=== PATIENT | male | born 1935 | race Caucasian/White ===

== ENCOUNTER → 2017-04-30 | Outpatient (CLI) | payer MEDICARE, BC ==
--- NOTE | 2017-04-30 11:56 | XR ---
EXAMINATION TYPE: XR chest 2V DATE OF EXAM: 04/30/2017 COMPARISON: 03/27/2016 TECHNIQUE: PA and lateral views submitted. HISTORY: COPD FINDINGS: The lungs are clear and there is no pneumothorax, pleural effusion, or focal pneumonia. Chronic fracture right clavicle noted. Nodule left midlung stable in appearance. Chronic wedge deform ities thoracic spine multilevel degenerative disc disease. Impression: 1. Stable left midlung nodule which is been previous report represent pleural plaque by CAT scan. 2. Correlate for COPD.
== END ==
LOC: RADXRMAIN 11:24
PROVIDERS: ATTEND Family Medicine
DX: R91.1 Solitary pulmonary nodule (principal)
CPT/HCPCS: 71020

== ENCOUNTER → 2018-02-10 | Outpatient (CLI) | payer MEDICARE, BC ==
--- NOTE | 2018-02-10 15:19 | PN ---
PROGRESS NOTE 82-year-old male patient was seen back in 2015 for sleep apnea. My overall suspicion for sleep apnea was low. The patient underwent a home sleep study. The patient was found to have an AHI of 7. He was not offered CPAP therapy over the past 3 years. He is coming in for evaluation. He is doing better. He has hypersomnia and sleepiness is essentially gone. He is not snoring. He wakes up refreshed and alert during the day. He goes to bed around 9:30 pm and wakes up 6:00 am in the morning. He does not fall asleep while driving or while doing his routine day-to-day activities. No restlessness in lower extremities. No nocturia. No sleepwalking or sleep talking. No parasomnias noted. PHYSICAL EXAMINATION: BP is 129/79, pulse 97, respirations 16, temperature 97.8, saturation 96% on room air. Weight is 137, height is 5-5, [place] score is at 7. GENERAL APPEARANCE: Calm, comfortable, no acute distress. HEENT: Head is atraumatic, normocephalic. NECK: Supple. There is no JVD. No goiter or neck masses. LUNGS: Clear to auscultation. HEART: Sounds regular rhythm. Normal S1, S2. No S3. No murmurs. ABDOMEN: Soft, nontender. No organomegaly. EXTREMITIES: No edema. No cyanosis or clubbing. NEUROLOGIC: Alert and oriented x3. There is no focal neurological deficits. IMPRESSION: 1. Asymptomatic mild obstructive sleep apnea based on her previous home sleep study. The patient had an AHI of 7. Yet he is completely asymptomatic at this point in time. 2. Chronic obstructive pulmonary disease. 3. Hypertension. PLAN: No need for any further investigation. Patient is quite asymptomatic at this point. His weight is stable. No difficulty with the sleep quality. Will refer back to his primary care physician. MMODL / IJN: [id number] /
== END | disposition home or self-care (01) ==
LOC: SLEEP 14:26
PROVIDERS: ATTEND Internal Medicine Critical Care Medicine
DX: G47.33 Obstructive sleep apnea (adult) (pediatric) (principal); Z53.9 Procedure and treatment not carried out, unspecified reason

== ENCOUNTER → 2018-05-28 | Outpatient (CLI) | payer MEDICARE, BC ==
--- NOTE | 2018-05-28 14:12 | CT ---
EXAMINATION TYPE: CT chest wo con DATE OF EXAM: 05/28/2018 COMPARISON: 06/07/2013 HISTORY: COPD CT DLP: 188.[address] of the chest was performed with lung and mediastinal window settings submitted. The la ck of contrast limits evaluation of the vascular, mediastinal and parenchymal structures including th e upper abdomen. LUNGS: Calcified and noncalcified pleural plaques compatible with as best as related pleural disease. Mild upper lobe emphysematous change noted. No evidence for mass or suspicious nodule. No evidence f or volume loss or focal consolidation. MEDIASTINUM/MARIE: Thoracic aorta is of normal caliber with limited evaluation given lack of contras t. The heart is not enlarged. No evidence for mediastinal mass. No lymph nodes greater than 1cm. UPPER ABDOMEN: No significant abnormality is seen. OTHER: No significant other abnormality. IMPRESSION: 1. Asbestos-related pleural disease.
== END | disposition home or self-care (01) ==
LOC: RADCTMAIN 11:00
PROVIDERS: ATTEND Family Medicine
DX: J94.8 Other specified pleural conditions (principal); N18.3 Chronic kidney disease, stage 3 (moderate); R79.9 Abnormal finding of blood chemistry, unspecified; J44.9 Chronic obstructive pulmonary disease, unspecified
CPT/HCPCS: 36415; 71250; 82565; 84520

== ENCOUNTER → 2019-03-31 | Outpatient (CLI) | payer MEDICARE, BC ==
--- NOTE | 2019-03-31 10:39 | CT ---
EXAMINATION TYPE: CT chest wo con DATE OF EXAM: 03/31/2019 COMPARISON: 05/28/2018 HISTORY: Pulmonary nodule CT DLP: 175.1 mGycm. Automated Exposure Control for Dose Reduction was Utilized. TECHNIQUE: CT scan of the thorax is performed without IV contrast. FINDINGS: LUNGS: Calcified and noncalcified pleural plaques compatible with as best as related pleural disease. Diffuse emphysematous changes are noted. There are three irregular focal density seen within the lef t upper lobe the largest measuring 1.7 cm. No pneumothorax or pleural effusion. Posteriorly there is also subsegmental consolidation involving both lower lobes. MEDIASTINUM: Lack of IV contrast is noted to limit evaluation for mediastinal and especially hilar ad enopathy. There are no definitive greater than 1 cm hilar or mediastinal lymph nodes. Coronary artery calcification noted.. OTHER: Hypertrophic and degenerative change of the vertebral body with chronic appearing compression deformities. There is a splenic mass measuring 17 Hounsfield units and 2.8 cm which is stable from th e prior exam. Small hiatal hernia noted. Suspect there may be a abdominal aortic aneurysm which is on ly partially included on exam measuring 3.1 cm on the final image of the CT chest. Stable mild thicke johnny of the left adrenal gland. IMPRESSION: 1. COPD with changes of asbestos related disease. However, there are 3 nodular appearing densities wi thin the left upper lobe which were new relative the prior exam. The largest has irregular margins an d has a suspicious appearance measuring 1.7 cm. Recommend PET scan. 2. 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 3. Abdominal aortic aneurysm is seen on the final image of the exam measuring 3.1 cm but is only part ially included.
== END | disposition home or self-care (01) ==
LOC: RADCTMAIN 08:11
PROVIDERS: ATTEND Family Medicine
DX: J44.9 Chronic obstructive pulmonary disease, unspecified (principal); J98.4 Other disorders of lung; I71.4 Abdominal aortic aneurysm, without rupture
CPT/HCPCS: 36415; 71250; 82565; 84520

== ENCOUNTER → 2019-04-17 | Outpatient (CLI) | payer MEDICARE, BC ==
--- NOTE | 2019-04-19 07:31 | PE ---
EXAMINATION TYPE: PET CT fusion skull to thigh DATE OF EXAM: 04/17/2019 COMPARISON: Chest CT November 29, 2018 and older CTs HISTORY: Abnormal CT, solitary pulmonary nodule left upper lobe. TECHNIQUE: Following the intravenous administration of 10.93 mCi of F-18 FDG, whole body images are performed from the skull base to the midthigh. Images are reviewed on the computer in the coronal, a xial, and sagittal planes. Reconstructed rotating images are created on independent workstation and reviewed on the computer. A noncontrast CT is performed in conjunction with the PET scan. SCAN: Initial Scan FINDINGS: SKULL BASE AND NECK: No areas of suspicious hypermetabolic uptake. CHEST, MEDIASTINUM, AND HILAR REGION: Background mild to moderate underlying emphysematous change red emonstrated. Redemonstration of calcified and noncalcified pleural plaques bilaterally. Persistent sc ar like opacities in the inferior lateral left upper lobe axial image 92 and 94 without hypermetaboli c uptake new from older CTs not significantly changed in size or appearance from most recent CT. No a reas of suspicious hypermetabolic uptake. Posterior right medial basilar linear scarring redemonstrat ed along with stable medial left basilar linear scarring. No significant change from prior studies. ABDOMEN AND PELVIS: Normal excretion is seen. No suspicious hypermetabolic uptake. OSSEOUS STRUCTURES: No suspicious hypermetabolic uptake. OTHER CT: Bilateral scleral calcifications as well as right lens calcification are identified. Mild c alcified plaque left carotid bulb. Ascending aorta measures up to 3.8 cm in diameter axial image 87. Coronary artery calcification is pr esent which is noted marker for underlying coronary artery disease. A 3.1 cm thin-walled cyst or low dense lesion anterior spleen is unchanged from May 28, 2018 CT f avoring benign etiology. Stomach is poorly distended and suboptimally evaluated similar to prior stud ies. There is AAA up to 3.4 cm axial image 165. Poor distention of bladder. Mildly enlarged prostate bulging of bladder base. Small fat-containing left inguinal hernia. Slight scoliotic curvature. Moderate to severe multilevel spurring and disc space narrowing in the floyd mbar spine. Moderate multilevel spurring in the cervical spine. IMPRESSION: No suspicious hypermetabolic uptake to suggest malignancy. There is however still concern for new scarlike opacities in the left upper lobe in which a low-grade bronchioloalveolar carcinoma cannot be entirely excluded. Consider short-term contrast enhanced CT follow-up in 3 months time to r eassess given these areas are new from May 28, 2018 and older CTs.
== END | disposition home or self-care (01) ==
LOC: RADPETMAIN 11:53
PROVIDERS: ATTEND Family Medicine
DX: R91.8 Other nonspecific abnormal finding of lung field (principal)
CPT/HCPCS: 78815; A9552

== ENCOUNTER 2019-05-18 11:57 | Day surgery (SDC) | payer BC, MEDICARE ==
[2019-05-18 12:26] VITALS: TEMP 97.7
[2019-05-18] MEDS ORDERED: LIDOCAINE 1% 20 ML VIAL (10MG/ML) FOR IV START INTRADERMA ONE (12:33)
[2019-05-18] MEDS ORDERED: LACTATED RINGERS 1,000 ML IV ONE (12:33)
[2019-05-18] MEDS ORDERED: PROPOFOL 10 MG/ML 20 ML VIAL IV ONE (13:23)
[2019-05-18] MEDS ORDERED: LIDOCAINE 1% INJ 10MG/ML (20 ML MDV) ONE (13:23)
[2019-05-18] MEDS ORDERED: LIDOCAINE 2% INJ 20 MG/ML INTRATRACH ONE (14:16)
--- NOTE | 2019-05-18 14:32 | P.PCN ---
Date of Procedure: 05/18/19 Preoperative Diagnosis: Left upper lobe nodule Postoperative Diagnosis: Same Procedure(s) Performed: #1 bronchoscopy, #2 bronchoalveolar lavage from left upper lobe, #3 bronchial biopsy from left upper lobe, 4 bronchial brushing from the left upper lobe Anesthesia: MAC Surgeon: Lobito Du Estimated Blood Loss (ml): 2 Disposition: same day Indications for Procedure: Left upper lobe scarlike nodule Operative Findings: As below Description of Procedure: Patient prepared and draped in a usual fashion fiberoptic bronchoscope was passed through the mouth as both in the 80s and passages are very narrow, the axis was achieved in the laryngeal area both vocal cords were normal structure and function tip of the scope was passed beyond the vocal cords into trachea which was normal right upper lobe middle lobe and right lower lobe along with subsegment inspected no endobronchial mass lesion was identified scope was taken on the left side left upper lobe narrowing was seen pictures were obtained as well and lingular lobe and left lower lobe sex recommend were inspected there w ere normal structure and function, bronchial biopsies were obtained from the left upper lobe bronchus along with brushing and lavage produced patient tolerated procedure well no complication noted
[2019-05-18] MEDS ORDERED: IPRATROPIUM-ALBUTEROL 3 ML NEB INHALATION STA (14:40)
[2019-05-18] MEDS ORDERED: methylPREDNISolone SOD SUCCI 125 MG/2 ML VIAL IVP ONE (14:59)
--- NOTE | 2019-05-18 15:01 | XR ---
EXAMINATION TYPE: XR chest 1V DATE OF EXAM: 05/18/2019 COMPARISON: 04/30/2017 HISTORY: Redness of breath TECHNIQUE: Single frontal view of the chest is obtained. FINDINGS: There is a mass in the left upper lobe measuring 2.3 cm. Hyperinflation suggests COPD. Art hropathy of the shoulders. Chronic right clavicular fracture noted. No overt failure. Atherosclerotic change aorta. Diffuse osteopenia is seen. No pneumothorax. IMPRESSION: 1. There is a left upper lobe mass measuring 2.3 cm.
[2019-05-18 15:25] VITALS: RESP 24
[2019-05-18 16:03] VITALS: BP 166/90; PULSE 94
== END 2019-05-18 18:10 | disposition home or self-care (01) ==
LOC: ORWHC2ENDO 11:57
PROVIDERS: ATTEND Internal Medicine Sleep Medicine
DX: J42 Unspecified chronic bronchitis (principal); I10 Essential (primary) hypertension; J44.9 Chronic obstructive pulmonary disease, unspecified; Z86.19 Personal history of other infectious and parasitic diseases; Z97.2 Presence of dental prosthetic device (complete) (partial); Z79.899 Other long term (current) drug therapy
CPT/HCPCS: 94640; 87798 ×3; 87496; 87498; 88104; 87529; 88108; 88305; 87252; 87502; 87634; 87070; 87205; 87116; 87102; 87206; 71045; 31625; 31623; 31624; J2001 ×2; J2930; J2704

== ENCOUNTER 2020-04-26 21:35 | Observation (INO) | payer MEDICARE ==
[2020-04-26 21:55] LABS: Glucose,Whole Blood 114 mg/dL (75-99)
[2020-04-26 22:21] LABS: Basophils % (A) 0 %; Eosinophils # (A) 0.5 k/uL (0-0.7); Eosinophils % (A) 6 %; HCT 35.9 % (39.0-53.0); HGB 11.9 gm/dL (13.0-17.5); Lymphocytes # (A) 1.8 k/uL (1.0-4.8); Lymphocytes % (A) 25 %; MCH 29.7 pg (25.0-35.0); MCHC 33.1 g/dL (31.0-37.0); MCV 89.7 fL (80.0-100.0); Mean Platelet Volume 7.6; Monocytes # (A) 0.4 k/uL (0-1.0); Monocytes % (A) 6 %; Neutrophils # (A) 4.4 k/uL (1.3-7.7); Neutrophils % (A) 61 %; Platelet Count 218 k/uL (150-450); WBC 7.3 k/uL (3.8-10.6)
[2020-04-26 22:31] LABS: INR 0.9 (<1.2); Partial Thromboplastin Time 22.1 sec (22.0-30.0); Prothrombin Time 9.6 sec (9.0-12.0)
--- NOTE | 2020-04-26 23:09 | CT ---
EXAMINATION TYPE: CT brain wo con DATE OF EXAM: 04/26/2020 COMPARISON: 01/05/2015 HISTORY: neuro deficits CT DLP: 1099.4 mGycm Automated exposure control for dose reduction was used. There is cerebral atrophy. There is no mass effect nor midline shift. There is no sign of intracrania l hemorrhage. The calvarium is intact. Skull base is intact. IMPRESSION: Cerebral atrophy. No acute intracranial abnormality. No significant change.
--- NOTE | 2020-04-26 23:12 | XR ---
EXAMINATION TYPE: XR chest 2V DATE OF EXAM: 04/26/2020 COMPARISON: 05/18/2019 HISTORY: Short of breath. Altered mental status TECHNIQUE: FINDINGS: Heart is normal. There is a small patch of infiltrate in the left midlung improved compared to old exam. The right lung is clear. There is no heart failure. There are no hilar masses. Costophr enic angles are clear. There is anterior wedging of several mid and lower thoracic vertebra. This is seen at T12 T11 and T8 vertebra up to 50%. IMPRESSION: There is some mild scarring in the left midlung. There is probably some COPD. No heart fa ilure. No adverse change compared to old exam. Compression fractures unchanged compared to 04/30/2017
[2020-04-26] MEDS ORDERED: CALCIUM CARBONATE 500 MG CHEWABLE PO STA (23:27)
--- NOTE | 2020-04-26 23:29 | ED ---
Neuro HPI - General Chief Complaint: Neuro Symptoms/Deficit Stated Complaint: Poss Neuro Symptoms Time Seen by Provider: 04/26/20 21:40 Source: patient Mode of arrival: ambulatory Limitations: no limitations - History of Present Illness Is the patient presenting with stroke symptoms?: Yes Initial Comments: 84-year-old male with past medical history of COPD who presents to the emergency room with reported strokelike symptoms. He states that at 6 PM this evening he had sudden onset with speech difficulties. Also felt slightly confused. His called EMS who arrived to the house. He reports that his symptoms lasted for approximately 1-1/2 hours however when EMS arrived his symptoms were improved. They did offer him the option to drive himself in an did transport him into the emergency department. Patient arrives at 9:30 and reports that his symptoms are completely resolved at this time. Denies previous history of stroke. Patient is blind in his right eye. Denies any additional visual changes. Denies any unilateral numbness or weakness. No fevers or chills. No recent head trauma. No other alleviating, precipitating or modifying factors - Related Data Home Medications: Home Medications Medication Instructions Recorded Confirmed Albuterol Nebulized [Ventolin 2.5 mg INHALATION RT-Q4H PRN 05/13/19 04/27/20 Nebulized] Albuterol Sulfate [Ventolin HFA] 1 - 2 puff INHALATION RT-Q6H PRN 04/27/20 04/27/20 Aspirin EC [Ecotrin Low Dose] 81 mg PO DAILY PRN 04/27/20 04/27/20 Cholecalciferol [Vitamin D3 (25 1,000 unit PO DAILY 04/27/20 04/27/20 Mcg = 1000 Iu)] Previous Rx's Medication Instructions Recorded Aspirin 325 mg PO DAILY tab 04/27/20 Atorvastatin [Lipitor] 20 mg PO HS tab 04/27/20 Allergies/Adverse Reactions: Allergies Allergy/AdvReac Type Severity Reaction Status Date / Time Penicillins Allergy Unknown Verified 04/27/20 08:04 Review of Systems ROS Statement: Those systems with pertinent positive or pertinent negative responses have been documented in the HPI. ROS Other: All systems not noted in ROS Statement are negative. General Exam Limitations: no limitations General appearance: alert, in no apparent distress Head exam: Present: atraumatic, normocephalic, normal inspection Eye exam: Present: normal appearance, PERRL, EOMI. Absent: scleral icterus, co njunctival injection, periorbital swelling ENT exam: Present: normal exam, mucous membranes moist Neck exam: Present: normal inspection. Absent: tenderness, meningismus, lymphadenopathy Respiratory exam: Present: normal lung sounds bilaterally. Absent: respiratory distress, wheezes, rales, rhonchi, stridor Cardiovascular Exam: Present: regular rate, normal rhythm, normal heart sounds. Absent: systolic murmur, diastolic murmur, rubs, gallop, clicks GI/Abdominal exam: Present: soft, normal bowel sounds. Absent: distended, tenderness, guarding, rebound, rigid Extremities exam: Present: normal inspection, full ROM, normal capillary refill. Absent: tenderness, pedal edema, joint swelling, calf tenderness Back exam: Present: normal inspection Neurological exam: Present: alert, oriented X3, CN II-XII intact Psychiatric exam: Present: normal affect, normal mood Skin exam: Present: warm, dry, intact, normal color. Absent: rash Stroke MDM - Lab Data Result diagrams: 04/26/20 22:06 04/27/20 14:35 Lab Results 04/26/20 04/26/20 04/26/20 Range/Units 21:53 22:06 22:06 WBC 7.3 (3.8-10.6) k/uL RBC 4.00 L (4.30-5.90) m/uL Hgb 11.9 L (13.0-17.5) gm/dL Hct 35.9 L (39.0-53.0) % MCV 89.7 (80.0-100.0) fL MCH 29.7 (25.0-35.0) pg MCHC 33.1 (31.0-37.0) g/dL RDW 15.0 (11.5-15.5) % Plt Count 218 (150-450) k/uL Neutrophils % 61 % Lymphocytes % 25 % Monocytes % 6 % Eosinophils % 6 % Basophils % 0 % Neutrophils # 4.4 (1.3-7.7) k/uL Lymphocytes # 1.8 (1.0-4.8) k/uL Monocytes # 0.4 (0-1.0) k/uL Eosinophils # 0.5 (0-0.7) k/uL Basophils # 0.0 (0-0.2) k/uL PT 9.6 (9.0-12.0) sec INR 0.9 (<1.2) APTT 22.1 (22.0-30.0) sec Sodium (137-145) mmol/L Potassium (3.5-5.1) mmol/L Chloride (98-107) mmol/L Carbon Dioxide (22-30) mmol/L Anion Gap mmol/L BUN (9-20) mg/dL Creatinine (0.66-1.25) mg/dL Est GFR (CKD-EPI)AfAm (>60 ml/min/1.73 sqM) Est GFR (CKD-EPI)NonAf (>60 ml/min/1.73 sqM) Glucose (74-99) mg/dL POC Glucose (mg/dL) 114 H (75-99) mg/dL POC Glu Cleaning Attendant ID Ana Laura Bright Calcium (8.4-10.2) mg/dL Total Bilirubin (0.2-1.3) mg/dL AST (17-59) U/L ALT (4-49) U/L Alkaline Phosphatase (38-126) U/L Troponin I (0.000-0.034) ng/mL Total Protein (6.3-8.2) g/dL Albumin (3.5-5.0) g/dL 04/26/20 04/26/20 Range/Units 22:06 22:06 WBC (3.8-10.6) k/uL RBC (4.30-5.90) m/uL Hgb (13.0-17.5) gm/dL Hct (39.0-53.0) % MCV (80.0-100.0) fL MCH (25.0-35.0) pg MCHC (31.0-37.0) g/dL RDW (11.5-15.5) % Plt Count (150-450) k/uL Neutrophils % % Lymphocytes % % Monocytes % % Eosinophils % % Basophils % % Neutrophils # (1.3-7.7) k/uL Lymphocytes # (1.0-4.8) k/uL Monocytes # (0-1.0) k/uL Eosinophils # (0-0.7) k/uL Basophils # (0-0.2) k/uL PT (9.0-12.0) sec INR (<1.2) APTT (22.0-30.0) sec Sodium 136 L (137-145) mmol/L Potassium 5.1 (3.5-5.1) mmol/L Chloride 108 H (98-107) mmol/L Carbon Dioxide 21 L (22-30) mmol/L Anion Gap 7 mmol/L BUN 51 H (9-20) mg/dL Creatinine 2.43 H (0.66-1.25) mg/dL Est GFR (CKD-EPI)AfAm 27 (>60 ml/min/1.73 sqM) Est GFR (CKD-EPI)NonAf 23 (>60 ml/min/1.73 sqM) Glucose 108 H (74-99) mg/dL POC Glucose (mg/dL) (75-99) mg/dL POC Glu Cleaning Attendant ID Calcium 8.8 (8.4-10.2) mg/dL Total Bilirubin 0.4 (0.2-1.3) mg/dL AST 33 (17-59) U/L ALT 14 (4-49) U/L Alkaline Phosphatase 67 (38-126) U/L Troponin I <0.012 (0.000-0.034) ng/mL Total Protein 7.5 (6.3-8.2) g/dL Albumin 4.2 (3.5-5.0) g/dL - Medical Decision Making Upon arrival patient is placed into room 1. A thorough history and physical exam was performed. NIH stroke scale is 0 at this time. The nurse does give the patient a score of 1 but this is because of his chronic blindness. He is sent over for a CT of his head. Laboratory studies were conducted which demonstrated a creatinine of 2.4. The patient symptoms are completely resolved I did cancel his CT angiography that the patient would best benefit from carotid Doppler exam and an echo. I recommended hospital admission for which the patient did agree to. A call discuss case with Dr. Wu who accepted admission for the patient. I'll place neurology on consult. Patient remained in stable condition awaiting a bed on the floor EKG demonstrates normal sinus rhythm with ventricular rate of 96.. AZ interval 168. QRS 94. QTC of 421. No acute ST segment elevations or depressions concerning for ischemic changes 04/26/20 23:29 Repeat EKG at 2355 demonstrates a normal sinus rhythm with a ventricular rate of 90. AZ interval 186. QRS 94. QTC of 428. No acute ST segment elevations or depressions concerning for ischemic changes Past Medical History Past Medical History: COPD, Pneumonia History of Any Multi-Drug Resistant Organisms: C-DIFF Date of last positivie culture/infection: 2011/C-Diff MDRO Source:: stool Past Surgical History: Hernia Repair Past Anesthesia/Blood Transfusion Reactions: No Reported Reaction Past Psychological History: No Psychological Hx Reported Smoking Status: Former smoker Past Alcohol Use History: Rare Past Drug Use History: None Reported - Past Family History Sister(s) Family Medical History: Cancer Additional Family Medical History / Comment(s): pancreatic Brother(s) Family Medical History: Cancer Course Vital Signs 04/26/20 04/26/20 04/26/20 21:36 21:51 22:06 Temperature 98.2 F 98.0 F 98.0 F Pulse Rate 103 H 93 94 Respiratory 16 18 18 Rate Blood Pressure 159/82 145/96 149/94 O2 Sat by Pulse 95 95 95 Oximetry 04/26/20 04/26/20 04/26/20 22:21 22:36 23:07 Temperature Pulse Rate 92 92 90 Respiratory 18 18 18 Rate Blood Pressure 141/81 135/95 139/87 O2 Sat by Pulse 99 96 99 Oximetry 04/26/20 04/27/20 04/27/20 23:32 00:13 01:13 Temperature 98.0 F 98.0 F Pulse Rate 96 90 86 Respiratory 18 18 18 Rate Blood Pressure 142/77 144/90 166/92 O2 Sat by Pulse 95 99 98 Oximetry Disposition Clinical Impression: Expressive aphasia, Transient cerebral ischemia Disposition: ADMITTED IP TO THIS [facility] Condition: Stable Is patient prescribed a controlled substance at d/c from ED?: No Decision to Admit Reason: Admit from EC Decision Date: 04/26/20 Decision Time: 23:51
[2020-04-26 23:37] LABS: Albumin 4.2 g/dL (3.5-5.0); Calcium 8.8 mg/dL (8.4-10.2); Potassium 5.1 mmol/L (3.5-5.1); Total Bilirubin 0.4 mg/dL (0.2-1.3); Total Protein 7.5 g/dL (6.3-8.2)
[2020-04-27] MEDS: ASPIRIN 325 MG TAB PO SCH ×2 (00:13→08:34)
[2020-04-27 04:51] LABS: Cholesterol 195 mg/dL (<200); HDL Cholesterol 54 mg/dL (40-60); LDL Cholesterol,Calculated 127 mg/dL (0-99); Triglycerides 70 mg/dL (<150)
[2020-04-27 08:32] VITALS: RESP 18
--- NOTE | 2020-04-27 11:32 | US ---
EXAMINATION TYPE: US carotid duplex BILAT DATE OF EXAM: 04/27/2020 COMPARISON: Previous exam 01/13/2015 CLINICAL HISTORY: Stenosis. Dizziness EXAM MEASUREMENTS: RIGHT: Peak Systolic Velocity (PSV) cm/sec ----- Right CCA: 85.2 ----- Right ICA: 112.8 ----- Right ECA: 130.2 ICA/CCA ratio: 1.3 RIGHT: End Diastole cm/sec ----- Right CCA: 25.6 ----- Right ICA: 38.7 ----- Right ECA: 24.1 LEFT: Peak Systolic Velocity (PSV) cm/sec ----- Left CCA: 79.3 ----- Left ICA: 98.2 ----- Left ECA: 104.0 ICA/CCA ratio: 1.2 LEFT: End Diastole cm/sec ----- Left CCA: 21.2 ----- Left ICA: 28.5 ----- Left ECA: 22.7 VERTEBRALS (direction of flow): Right Vertebral: Antegrade Left Vertebral: Antegrade Rhythm: Normal Grayscale, color Doppler, spectral Doppler imaging performed of the carotid arteries. Waveform analys is does not show significant stenosis of the internal carotid arteries. No significant stenosis seen IMPRESSION: No hemodynamic significant stenosis of the proximal internal carotid arteries by Doppler criteria, an indirect measurement of carotid stenosis Criteria for Assigning % of Stenosis / Diameter reduction (Estimation based on the indirect measurements of the internal carotid artery velocities (ICA PSV). 1. Normal (no stenosis)=ICA PSV < 125 cm/s: ratio < 2.0: ICA EDV<40 cm/s. 2. Less than 50% stenosis=ICA PSV < 125 cm/s: ratio < 2.0: ICA EDV<40 cm/s. 3. 50 to 69% stenosis=ICA PSV of 125 to 230 cm/s: ration 2.0 ? 4.0: ICA EDV 40-100 cm/s. 4. Greater than 70% stenosis to near occlusion= ICA PSV > 230 cm/s: ratio > 4.0: ICA EDV > 100 cm/s. 5. Near occlusion= ICA PSV velocities may be low or undetectable: variable ratio and ICA EDV. 6. Total occlusion=unable to detect flow.
--- NOTE | 2020-04-27 12:19 | ECHOF ---
Referral Reason:suspected cva MEASUREMENTS -------- HEIGHT: 175.3 cm WEIGHT: 64.0 kg BP: IVSd: 1.2 cm (0.6 - 1.1) LVIDd: 3.6 cm (3.9 - 5.3) LVPWd: 1.5 cm (0.6 - 1.1) IVSs: 1.8 cm LVIDs: 2.2 cm LVPWs: 1.8 cm LAESV Index (A-L): 19.55 ml/m Ao Diam: 3.2 cm (2.0 - 3.7) AV Cusp: 2.4 cm (1.5 - 2.6) LA Diam: 2.7 cm (2.7 - 3.8) MV EXCURSION: 22.486 mm (> 18.000) MV EF SLOPE: 117 mm/s (70 - 150) EPSS: 0.5 cm MV E Adam: 0.69 m/s MV DecT: 198 ms MV A Adam: 1.06 m/s MV E/A Ratio: 0.65 RAP: 5.00 mmHg RVSP: 13.73 mmHg FINDINGS -------- This was a technically good study. The left ventricular size is normal. There is mild concentric left ventricular hypertrophy. Overa ll left ventricular systolic function is normal with, an EF between 55 - 60 %. The diastolic fillin g pattern is normal for the age of the patient 9.20. The right ventricle is normal in size. The left atrial size is normal. Normal LA size by volume 22+/-6 ml/m2. The right atrial size is normal. Interatrial and interventricular septum intact. Aortic valve is trileaflet and is mildly thickened. The mitral valve is normal. There is trace mitral regurgitation. The tricuspid valve appears structurally normal. Mild tricuspid regurgitation present. Right vent ricular systolic pressure is normal at < 35 mmHg. There is no pulmonic regurgitation present. The aortic root size is normal. Normal inferior vena cava with normal inspiratory collapse consistent with estimated right atrial pre ssure of 5 mmHg. There is no pericardial effusion. CONCLUSIONS -------- 1. The left ventricular size is normal. 2. There is mild concentric left ventricular hypertrophy. 3. Overall left ventricular systolic function is normal with, an EF between 55 - 60 %. 4. The diastolic filling pattern is normal for the age of the patient 9.20 5. Aortic valve is trileaflet and is mildly thickened. 6. There is trace mitral regurgitation. 7. Mild tricuspid regurgitation present. 8. There is no pericardial effusion. ADOLESCENT PSYCHIATRIST: Brook Ralph RDCS
[2020-04-27] MEDS ORDERED: SODIUM CHLORIDE 0.9% 1,000 ML IV SCH (12:30)
[2020-04-27 12:48] LABS: Albumin 3.6 g/dL (3.5-5.0); Calcium 8.9 mg/dL (8.4-10.2); Potassium 4.9 mmol/L (3.5-5.1); Total Bilirubin 0.4 mg/dL (0.2-1.3); Total Protein 6.5 g/dL (6.3-8.2)
--- NOTE | 2020-04-27 14:20 | P.CNNES ---
History of Present Illness Consult date: 04/27/20 Requesting physician: Cass Bhandari Reason for Consult: Acute expressive aphasia, suspected TIA History of Present Illness: Patient is a 84-year-old male came to the hospital yesterday at 9:30 PM with strokelike symptoms. Patient states that yesterday he did extra exertion. At about 3 PM he went to a store and was lifting 40 pound gallon of gas and putting it in the back of the trunk and then picking it up again and strained himself. Later on he worked in the backyard cutting wood with a chainsaw for 3-4 hours. At around 6 PM he came inside, and felt he was disoriented, was not making any sense was he was talking. He thinks his speech was slurred. Nothing was hurting like chest pain shortness of breath or any headache. He laid down in the couch for about 20 minutes, and when he got up, his symptoms were worse, could not express himself. I spoke to his later on, who states that patient was speaking clearly, no slurring, but he just could not tell what he was feeling. Patient's mentioned that there was no incorrect words or gibberish language, but he just could not tell what he was feeling. There was nothing hurting. There was no numbness, tingling or focal weakness, double vision. EMS was called, and when they arrived, patient's symptoms have mostly resolved. Patient's brought him to the hospital. When he arrived to the hospital, his symptoms had completely resolved in total of about 1-2 hours. Vital signs on arrival was blood pressure 159/82, pulse rate 103, temperature 98.2. Computed tomography scan of head showed cerebral atrophy, no acute intracranial abnormality. Chest x-ray showed some mild scarring in the left mid lung. There is probably some COPD. No heart failure. No adverse change compared to old exam. Compression fractures unchanged compared to 04/30/2017. EKG shows normal sinus rhythm. Minimal voltage criteria for LVH. Patient's blood test shows cholesterol 195, LDL 127, HDL 54 triglycerides 70. Hepatic panel normal, sodium 136 BUN 51 creatinine 2.43. CBC with hemoglobin 11.9 Home medications include aspirin 81 mg, vitamin D and albuterol. Patient states that he takes aspirin off and on for the past 5-10 years. He ran out of aspirin and has not been taking it for almost a month. Patient denies diabetes hypertension. He smoked a half pack per day for 50 years, quit 3 years ago. Denies any alcohol intake. Patient denies any double vision, facial droop focal numbness tingling weakness or pain. No previous history of strokes or TIA. Review of Systems As above in detail. All other review of systems completely unremarkable. Patient does have some mild difficulty breathing likely from underlying COPD. Past Medical History Past Medical History: COPD, Pneumonia History of Any Multi-Drug Resistant Organisms: C-DIFF Date of last positivie culture/infection: 2011/C-Diff MDRO Source:: stool Past Surgical History: Hernia Repair Past Anesthesia/Blood Transfusion Reactions: No Reported Reaction Past Psychological History: No Psychological Hx Reported Smoking Status: Former smoker Past Alcohol Use History: Rare Past Drug Use History: None Reported - Past Family History Sister(s) Family Medical History: Cancer Additional Family Medical History / Comment(s): pancreatic Brother(s) Family Medical History: Cancer Medications and Allergies Home Medications Medication Instructions Recorded Confirmed Type Albuterol Nebulized [Ventolin 2.5 mg INHALATION RT-Q4H PRN 05/13/19 04/27/20 History Nebulized] Albuterol Sulfate [Ventolin HFA] 1 - 2 puff INHALATION RT-Q6H PRN 04/27/20 04/27/20 History Aspirin 325 mg PO DAILY tab 04/27/20 Rx Aspirin EC [Ecotrin Low Dose] 81 mg PO DAILY PRN 04/27/20 04/27/20 History Atorvastatin [Lipitor] 20 mg PO HS tab 04/27/20 Rx Cholecalciferol [Vitamin D3 (25 1,000 unit PO DAILY 04/27/20 04/27/20 History Mcg = 1000 Iu)] Allergies Allergy/AdvReac Type Severity Reaction Status Date / Time Penicillins Allergy Unknown Verified 04/27/20 08:04 Physical Examination - Vital Signs Vital Signs: Vital Signs Temp Pulse Pulse Resp BP BP Pulse Ox 04/27/20 08:29 98.2 F 104 H 18 143/85 91 L 04/27/20 06:52 97.9 F 77 16 154/89 96 04/27/20 04:52 98.0 F 73 18 165/89 99 04/27/20 02:39 97.8 F 103 H 18 166/89 99 04/27/20 02:37 97.8 F 103 H 18 166/89 99 04/27/20 01:13 98.0 F 86 18 166/92 98 04/27/20 00:13 98.0 F 90 18 144/90 99 04/26/20 23:32 96 18 142/77 95 04/26/20 23:07 90 18 139/87 99 04/26/20 22:36 92 18 135/95 96 04/26/20 22:21 92 18 141/81 99 04/26/20 22:06 98.0 F 94 18 149/94 95 04/26/20 21:51 98.0 F 93 18 145/96 95 04/26/20 21:36 98.2 F 103 H 16 159/82 95 Intake and Output 04/26/20 04/27/20 04/27/20 22:59 06:59 14:59 Intake Total 120 Balance 120 Intake: Oral 120 Other: Voiding Method Toilet Toilet Weight 63.957 kg 63.957 kg On examination patient is an elderly male, very pleasant in no acute distress. Patient is alert awake oriented to time place and person. Speech and language functions are normal. Attention and concentration fund of knowledge is adequate. Patient can name and repeat very well. On cranial examination pupils are round and reactive to light, visual le are full on confrontation, extraocular muscles are intact with no nystagmus. Patient has very mild flattening of the right nasolabial fold. Tongue protrudes the midline. Palatal elevation sensation normal hearing is slightly decreased, shoulder shrug normal. On muscle strength testing there is no pronator drift and the strength is normal in arms and legs distally and proximally reflexes are 2+ and plantars are downgoing bilaterally. Sensory touch is equal. No ataxia for [id number] testing. Tone and bulk of muscles normal. No obvious bruit, S1 and S2 audible. Peripheral pulses present no edema. Abdomen soft nontender. Results - Laboratory Findings CBC and BMP: 04/26/20 22:06 04/27/20 14:35 Abnormal Lab Findings: Abnormal Labs 04/26/20 04/26/20 04/26/20 21:53 22:06 22:06 RBC 4.00 L Hgb 11.9 L Hct 35.9 L Sodium 136 L Chloride 108 H Carbon Dioxide 21 L BUN 51 H Creatinine 2.43 H Glucose 108 H POC Glucose (mg/dL) 114 H LDL Cholesterol, Calc 04/27/20 04:26 RBC Hgb Hct Sodium Chloride Carbon Dioxide BUN Creatinine Glucose POC Glucose (mg/dL) LDL Cholesterol, Calc 127 H Assessment and Plan Assessment: * Probable TIA manifesting with difficulty expressing himself, that resolved in 1-2 hours. Current NIH stroke scale 0. * Hyperlipidemia * Acute on chronic renal insufficiency * X tobacco use. Plan: * Patient underwent carotid Doppler, which revealed no hemodynamically significant stenosis of the proximal ICA. Antegrade flow in both vertebral arteries. * 2-D echo showed normal left-ventricular size, mild concentric LVH, EF is 55- 60%. Aortic valve is trileaflet and mildly thickened. No embolic source. * MRI of brain without contrast is normal. No acute stroke. Age-related changes of atrophy and small vessel ischemia. * Patient had stopped taking aspirin a month ago. I would suggest resuming aspirin 162 mg daily for a month, and then may drop down to 81 mg daily and continue indefinitely. * Lipitor 20 mg daily for hyperlipidemia, to target LDL <70. * Hemoglobin A1c. Repeat Chem-7 and check TSH.
[2020-04-27 14:51] VITALS: BP 121/86; PULSE 83; TEMP 97.5
[2020-04-27 15:01] LABS: Potassium 5.2 mmol/L (3.5-5.1)
--- NOTE | 2020-04-27 15:22 | MR ---
MR brain without contrast HISTORY: TIA, neuro deficit Multiplanar multisequence imaging obtained through the brain Correlation CT brain 04/26/2020 There is no restricted diffusion. Cortical atrophy is present. There is no hemorrhage or hydrocephalu s. Periventricular white matter shows confluent and scattered hyperintensities on inversion recovery T2-weighted sequences, there is motion on the exam. There are normal vascular flow voids. Corpus call osum, pituitary, cervical medullary junction, cerebellopontine angles are normal. Sinuses are well ae rated. Orbits show symmetric appearance. IMPRESSION: Age-related changes of atrophy and probable chronic small vessel ischemia.
--- NOTE | 2020-04-27 17:13 | HP ---
HISTORY AND PHYSICAL SUBJECTIVE: This is an elderly white male who was out cutting wood all day, lifting heavy gas cans in the hot heat, drinking beer, no water. I suspect he came into the hospital with altered mental status with possibly dehydration versus TIA where he was confused at home, resolved when he got to the hospital. Wait for neurology recommendations, but he had a carotid ultrasound done here and an echo which were totally normal. CT scan of the brain is normal. He has elevated BUN and creatinine. He is going to be given normal saline fluid over this afternoon and possibly an MRI of the brain to rule out a stroke, but he is asymptomatic at this point. HOME MEDICINES: He takes vitamin D 1000 daily, aspirin 81 daily, Ventolin HFA 1-2 puffs q.6 hours, nebulized Ventolin t.i.d. p.r.n. REVIEW OF SYSTEMS: Fourteen-point review of systems otherwise negative. PAST MEDICAL HISTORY: Pneumonia, COPD, history of C difficile, hernia repair. SOCIAL HISTORY: Former smoker. FAMILY HISTORY: Sister with pancreatic issues. Brother with some kind of cancer. HOME MEDICINES: As mentioned above. ALLERGIES: PENICILLIN. PHYSICAL EXAMINATION: Temperature 97 to 98, respiratory rate 16 to 18, blood pressure 130s to 160s over 70s to 90s, pulse ox 91% to 99% on 2 L, pulse 70s to 80s. Cranial nerves appear to be intact. Lungs have decreased breath sounds x4. Skin is dry with dry mucous membranes. Poor skin turgor. LABS: Labs were reviewed. ASSESSMENT: 1. Prerenal renal failure. 2. Dehydration. 3. Acute tubular necrosis. 4. Probable transient ischemic attack versus dehydration. 5. Acute on chronic renal insufficiency. 6. Nicotine addiction. 7. End-stage chronic obstructive pulmonary disease. 8. Dyslipidemia. Echo was reviewed. MRI has been completed. No strokes. The patient stopped taking aspirin a month ago. He remains on aspirin for a month. He may drop down to 81 mg, Lipitor 20. Possible discharge home at this time. MMODL / IJN: [id number] /
[2020-04-27 19:22] LABS: Hemoglobin A1C 5.8 % (4.0-6.0)
[2020-04-27] MEDS ORDERED: ATORVASTATIN 20 MG TAB PO SCH (21:00)
== END 2020-04-27 17:01 | disposition home or self-care (01) ==
LOC: EC 21:35 → 3NCARDOBS 23:51
PROVIDERS: ADMIT Family Medicine; ATTEND Family Medicine
DX: R47.01 Aphasia (principal); E78.5 Hyperlipidemia, unspecified; E86.0 Dehydration; H54.61 Unqualified visual loss, right eye, normal vision left eye; J44.9 Chronic obstructive pulmonary disease, unspecified; N17.0 Acute kidney failure with tubular necrosis; N18.9 Chronic kidney disease, unspecified; R29.700 NIHSS score 0; Z79.82 Long term (current) use of aspirin; Z79.899 Other long term (current) drug therapy; Z86.73 Personal history of transient ischemic attack (TIA), and cerebral infarction without residual deficits; Z87.891 Personal history of nicotine dependence
CPT/HCPCS: 99285; 36415; 93005; 93306; 97161; 80061; 80053 ×2; 80048; 84443; 84484 ×2; 85025; 85610; 85730; 83036; 71046; 93880; 70450; 70551; G0378

== ENCOUNTER → 2020-05-17 | Outpatient (CLI) | payer MEDICARE ==
--- NOTE | 2020-05-17 15:19 | CT ---
EXAMINATION TYPE: CT abdomen wo con DATE OF EXAM: 05/17/2020 COMPARISON: 05/06/2012 HISTORY: Generalized pain for [address] DLP: 155.8 mGycm Examination of the solid and hollow viscera is limited given the lack of contrast. FINDINGS: LUNG BASES: Partially imaged pleural-based nodular densities at the lung bases bilaterally with adjac ent calcifications may reflect rounded atelectasis in a patient with pleural-related asbestos diseas e. LIVER/GB: The gallbladder is unremarkable. No space-occupying hepatic lesion. PANCREAS: No pancreatic mass identified. No inflammatory process seen. SPLEEN: No evidence for splenomegaly. Nonspecific hypoattenuating splenic lesion may reflect hemangio ma or cyst measuring 3.1 cm. ADRENALS: No adrenal nodules identified. No evidence for thickening. KIDNEYS: No evidence for renal mass. No nephrolithiasis. No hydronephrosis. BOWEL: Visualized bowel loops appear to be of normal caliber. No inflammatory process or free air see n. Lymph nodes: No evidence for adenopathy greater than 1 cm. Abdominal aorta: Atheromatous changes seen. 3.3 cm infrarenal abdominal aortic aneurysm. Genital organs: No significant abnormality. Other: No significant abnormality. IMPRESSION: 1. No acute intra-abdominal process to account for the patient's symptoms. 2. Nonspecific splenic lesion was not present in 2011. Ultrasound correlation is advised. 3. Basilar pleural-parenchymal densities as discussed above.
== END | disposition home or self-care (01) ==
LOC: RADCTMAIN 14:23
PROVIDERS: ATTEND Family Medicine
DX: R10.9 Unspecified abdominal pain (principal)
CPT/HCPCS: 74150

== ENCOUNTER 2020-09-14 09:13 | Day surgery (SDC) | payer MEDICARE ==
[2020-09-12 13:25] VITALS: BMI 20.7
[~2020-09-14 09:13] MED LIST: LACTATED RINGERS 1,000 ML IV SCH
[2020-09-14] MEDS ORDERED: LIDOCAINE 1% (10MG/ML) FOR IV START INTRADERMA ONE (09:54)
[2020-09-14 10:01] VITALS: TEMP 97.8
[2020-09-14] MEDS ORDERED: PROPOFOL 10 MG/ML 20 ML VIAL IV ONE (10:21)
--- NOTE | 2020-09-14 10:24 | P.GSHP ---
History of Present Illness H&P Date: 09/14/20 Chief Complaint: Constipation This 84-year-old male history constipation. Patient's today for colonoscopy. Past Medical History Past Medical History: COPD, Pneumonia Additional Past Medical History / Comment(s): HX C-DIFF (2011), BACK PAIN, RASH - HAS APPT WITH History of Any Multi-Drug Resistant Organisms: None Reported Date of last positivie culture/infection: 2011/C-Diff MDRO Source:: stool Past Surgical History: Hernia Repair Past Anesthesia/Blood Transfusion Reactions: No Reported Reaction Past Psychological History: No Psychological Hx Reported Smoking Status: Former smoker Past Alcohol Use History: Rare Additional Past Alcohol Use History / Comment(s): smoked 50-60 years ,1/2ppd quit smoking mar 2019 Past Drug Use History: None Reported - Past Family History Sister(s) Family Medical History: Cancer Additional Family Medical History / Comment(s): pancreatic Brother(s) Family Medical History: Cancer Medications and Allergies Home Medications Medication Instructions Recorded Confirmed Type Albuterol Nebulized [Ventolin 1 dose INHALATION DIRECTED PRN 05/13/19 09/14/20 History Nebulized] Albuterol Sulfate [Ventolin HFA] 1 - 2 puff INHALATION DIRECTED 04/27/20 09/14/20 History PRN Aspirin EC [Ecotrin Low Dose] 81 mg PO DAILY 04/27/20 09/14/20 History Atorvastatin [Lipitor] 20 mg PO HS tab 04/27/20 09/14/20 Rx Ascorbic Acid [Vitamin C] 500 mg PO DAILY 09/12/20 09/14/20 History Cholecalciferol (Vitamin D3) 125 mcg PO DAILY 09/12/20 09/14/20 History [Vitamin D3 (5000 Iu)] Glucosamine/Chondr Chahal A Sod [Osteo 1 each PO DAILY 09/12/20 09/14/20 History Bi-Flex Caplet] Allergies Allergy/AdvReac Type Severity Reaction Status Date / Time Penicillins Allergy Unknown Verified 09/14/20 09:34 Surgical - Exam Vital Signs Temp Pulse Resp BP Pulse Ox 97.8 F 114 H 20 179/92 97 09/14/20 09:55 09/14/20 09:55 09/14/20 09:55 09/14/20 09:55 09/14/20 09:55 - General well developed, well nourished, no distress - Eyes PERRL - ENT normal pinna - Neck no masses - Respiratory normal expansion - Cardiovascular Rhythm: regular - Abdomen Abdomen: soft, non tender Assessment and Plan Assessment: Constipation. We'll perform colonoscopy.
--- NOTE | 2020-09-14 10:37 | P.OP ---
Date of Procedure: 09/14/20 Preoperative Diagnosis: Constipation Postoperative Diagnosis: Severe diverticulosis of left and sigmoid colon Procedure(s) Performed: Colonoscopy Anesthesia: MAC Surgeon: Adryan Urbano Pathology: none sent Condition: stable Disposition: PACU Description of Procedure: The patient's placed on the endoscopy table in the lateral position. He received IV sedation. Digital rectal exam was performed which revealed a few internal and external hemorrhoids. The flexible class scope was then placed patient anus passed throughout the entire colon. The ileocecal valve lesions. The cecum, ascending and transverse colon appeared normal. In the descending colon there was scattered diverticula. In the sigmoid colon there is extensive diverticular changes. There is no evidence of active diverticulitis. The scope was then brought back the rectum and this appeared normal. Scope was withdrawn for patient.
[2020-09-14 11:00] VITALS: BP 123/81; PULSE 70; RESP 20
== END 2020-09-14 11:07 | disposition home or self-care (01) ==
LOC: ORWHC2ENDO 09:13
PROVIDERS: ATTEND Surgery
DX: K64.4 Residual hemorrhoidal skin tags (principal); K57.30 Diverticulosis of large intestine without perforation or abscess without bleeding; J44.9 Chronic obstructive pulmonary disease, unspecified; Z87.01 Personal history of pneumonia (recurrent); Z86.19 Personal history of other infectious and parasitic diseases; M54.9 Dorsalgia, unspecified; R21 Rash and other nonspecific skin eruption; Z87.891 Personal history of nicotine dependence; Z80.0 Family history of malignant neoplasm of digestive organs; Z80.9 Family history of malignant neoplasm, unspecified; Z79.82 Long term (current) use of aspirin; Z79.899 Other long term (current) drug therapy; Z88.0 Allergy status to penicillin
CPT/HCPCS: 45378; J2704

== ENCOUNTER → 2021-05-30 | Outpatient (CLI) | payer MEDICARE ==
--- NOTE | 2021-05-31 07:03 | CT ---
EXAMINATION TYPE: CT chest wo con DATE OF EXAM: 05/30/2021 COMPARISON: Prior CT March 31, 2019. HISTORY: COPD CT DLP: 162.1 mGycm. Automated Exposure Control for Dose Reduction was Utilized. TECHNIQUE: CT scan of the thorax is performed without IV contrast. FINDINGS: LUNGS: Mild to moderate underlying emphysematous changes redemonstrated. Some calcified pleural plaqu es are redemonstrated. Stable focal pleural thickening posterior basilar lungs with slightly nodular component on the left redemonstrated. No new suspicious consolidation or groundglass opacity. No pleu ral effusion or pneumothorax seen bilaterally. MEDIASTINUM: Lack of IV contrast is noted to limit evaluation for mediastinal and especially hilar ad enopathy. There are no definitive greater than 1 cm hilar or mediastinal lymph nodes. No cardiomega ly or pericardial effusion is seen. Ascending aorta measures up to 3.7 cm in diameter. Coronary arter y calcification is present which is noted marked underlying coronary artery disease. OTHER: There is persistent 3.4 cm low dense lesion in the anterior spleen likely reflecting benign th in-walled cyst. There is ectatic and slightly aneurysmal abdominal aorta partially imaged on inferior most images. Finding correlates with May 17, 2020 CT abdomen study. There is underlying scoliosi s. Osseous structures are demineralized. Mild chronic compression type fracture deformity T8 and T12 levels is seen. Prominent spurring and disc space narrowing lower cervical spine is partially imaged. IMPRESSION: Evidence of prior asbestos exposure redemonstrated. Mild to moderate chronic emphysematou s change without new or enlarging greater than 5 mm nodules. No acute pulmonary process.
== END ==
LOC: RADCTMAIN 15:37
PROVIDERS: ATTEND Family Medicine
DX: J44.9 Chronic obstructive pulmonary disease, unspecified (principal)
CPT/HCPCS: 71250; 82565; 84520

== ENCOUNTER 2022-03-08 21:48 | Emergency (ER) | payer MEDICARE ==
[2022-03-08 22:27] VITALS: BP 135/80; PULSE 115; RESP 19; TEMP 101.3
--- NOTE | 2022-03-08 22:42 | XR ---
EXAMINATION TYPE: XR chest 2V DATE OF EXAM: 03/08/2022 COMPARISON: 11/30/2021 HISTORY: Weakness TECHNIQUE: 2 views FINDINGS: There is no heart failure nor confluent pneumonic infiltrate. There is coarsening of the floyd ng markings in the left mid and lower lobe and consistent with scarring not significantly different t bethea last exam. The right lung is fairly clear. There are no hilar masses. IMPRESSION: Chronic coarse density in the left lower lobe consistent with scarring and not changed co mpared to the old exam. No heart failure.
[2022-03-08] MEDS ORDERED: ACETAMINOPHEN TAB 325 MG TAB PO STA (23:12)
[2022-03-08] MEDS ORDERED: SODIUM CHLORIDE 0.9% 1,000 ML IV STA (23:13)
--- NOTE | 2022-03-08 23:15 | ED ---
Weakness HPI - General Chief complaint: Weakness Stated complaint: Weakness Time Seen by Provider: 03/08/22 23:04 Source: patient Mode of arrival: wheelchair - History of Present Illness Initial comments: This patient is an 86-year-old man who presents with complaint that he is not feeling well in general. He has not felt well since yesterday. He also has had a little bit of cough and some congestion. The main thing is fatigue and generalized weakness. He may also have had a fever he felt warm at home. He denies pains. No dyspnea. MD Complaint: generalized weakness, lack of energy Onset/Timin -: days(s) Location: generalized Severity: mild Consistency: constant Improves with: none Worsens with: none - Related Data Home Medications Medication Instructions Recorded Confirmed Albuterol Sulfate [Ventolin HFA] 2 puff INHALATION RT-Q4H PRN 04/27/20 11/30/21 Aspirin EC [Ecotrin Low Dose] 81 mg PO DAILY 04/27/20 11/30/21 Cholecalciferol (Vitamin D3) 125 mcg PO DAILY 09/12/20 11/30/21 [Vitamin D3 (5000 Iu)] Glucosamine/Chondr Chahal A Sod [Osteo 1 tab PO DAILY 09/12/20 11/30/21 Bi-Flex Caplet] Acetaminophen Tab [Tylenol] 500 mg PO Q6H PRN 11/30/21 11/30/21 Ipratropium-Albuterol Nebulize 3 ml INHALATION RT-BID PRN 11/30/21 11/30/21 [Duoneb 0.5 mg-3 mg/3 ml Soln] Tiotropium Br/Olodaterol HCl 2 puff INHALATION RT-DAILY 11/30/21 11/30/21 [Stiolto Respimat Inhal [place]] amLODIPine [Norvasc] 5 mg PO DAILY 11/30/21 11/30/21 Previous Rx's Medication Instructions Recorded Atorvastatin [Lipitor] 20 mg PO HS tab 04/27/20 Isosorbide Mononitrate ER [Imdur] 30 mg PO DAILY 90 Days #90 12/02/21 Metoprolol Succinate (ER) [Toprol 25 mg PO DAILY 90 Days #90 12/02/21 XL] Nitroglycerin Sl Tabs [Nitrostat] 0.4 mg SUBLINGUAL Q5M PRN 100 Days 12/02/21 #100 tab Nirmatrelvir/Ritonavir [Paxlovid 1 each PO ONCE #1 pack 03/09/22 2X150 mg-100 mg (Eua)] Allergies Allergy/AdvReac Type Severity Reaction Status Date / Time Penicillins Allergy Unknown Verified 03/08/22 22:27 Childhood Review of Systems ROS Statement: Those systems with pertinent positive or pertinent negative responses have been documented in the HPI. ROS Other: All systems not noted in ROS Statement are negative. Constitutional: Reports: fever, weakness. Denies: chills ENT: Reports: congestion. Denies: throat pain Respiratory: Reports: cough. Denies: dyspnea, wheezes, hemoptysis Cardiovascular: Denies: chest pain, palpitations, edema Gastrointestinal: Denies: abdominal pain, vomiting, diarrhea Genitourinary: Denies: dysuria, hematuria Musculoskeletal: Denies: back pain Skin: Denies: rash Neurological: Denies: headache, weakness, numbness Past Medical History Past Medical History: COPD, Pneumonia Additional Past Medical History / Comment(s): HX C-DIFF (2011), BACK PAIN History of Any Multi-Drug Resistant Organisms: None Reported Date of last positivie culture/infection: 2011/C-Diff MDRO Source:: stool Past Surgical History: Hernia Repair Past Anesthesia/Blood Transfusion Reactions: No Reported Reaction Past Psychological History: No Psychological Hx Reported Smoking Status: Former smoker Past Alcohol Use History: Rare Past Drug Use History: None Reported - Past Family History Sister(s) Family Medical History: Cancer Additional Family Medical History / Comment(s): pancreatic Brother(s) Family Medical History: Cancer General Exam General appearance: alert, in no apparent distress Head exam: Present: atraumatic, normocephalic Eye exam: Present: normal appearance. Absent: scleral icterus, conjunctival injection ENT exam: Present: normal oropharynx Neck exam: Present: normal inspection Respiratory exam: Present: normal lung sounds bilaterally. Absent: respiratory distress, wheezes, rales, rhonchi, stridor Cardiovascular Exam: Present: regular rate, normal rhythm, normal heart sounds. Absent: systolic murmur, diastolic murmur, rubs, gallop GI/Abdominal exam: Present: soft. Absent: distended, tenderness, guarding Extremities exam: Present: normal inspection, normal capillary refill. Absent: pedal edema, calf tenderness Back exam: Present: normal inspection. Absent: CVA tenderness (R), CVA tenderness (L) Neurological exam: Present: alert Skin exam: Present: warm, dry, intact, normal color. Absent: rash Course Vital Signs 03/08/22 22:23 Temperature 101.3 F H Pulse Rate 115 H Respiratory 19 Rate Blood Pressure 135/80 O2 Sat by Pulse 97 Oximetry EKG Findings - EKG Results: EKG: interpreted by ERMD, sinus rhythm (Rate 121 bpm), normal axis - Blocks, [place], Hypertrophy, ST Abn: Chamber hypertrophy or enlargement: left ventricular hypertrophy or enlargement (LVE) Repolarization changes or abnormalities: nonspecific abnormality, ST segment, and/or T wave Medical Decision Making - Lab Data Result diagrams: 03/09/22 00:07 03/09/22 00:07 Lab Results 03/08/22 03/09/22 03/09/22 Range/Units 22:28 00:07 00:07 WBC 4.6 (3.8-10.6) k/uL RBC 3.68 L (4.30-5.90) m/uL Hgb 10.8 L (13.0-17.5) gm/dL Hct 33.1 L (39.0-53.0) % MCV 90.0 (80.0-100.0) fL MCH 29.4 (25.0-35.0) pg MCHC 32.6 (31.0-37.0) g/dL RDW 15.1 (11.5-15.5) % Plt Count 181 (150-450) k/uL MPV 7.4 Neutrophils % 71 % Lymphocytes % 13 % Monocytes % 9 % Eosinophils % 2 % Basophils % 2 % Neutrophils # 3.3 (1.3-7.7) k/uL Lymphocytes # 0.6 L (1.0-4.8) k/uL Monocytes # 0.4 (0-1.0) k/uL Eosinophils # 0.1 (0-0.7) k/uL Basophils # 0.1 (0-0.2) k/uL Sodium 135 L (137-145) mmol/L Potassium 5.0 (3.5-5.1) mmol/L Chloride 103 (98-107) mmol/L Carbon Dioxide 25 (22-30) mmol/L Anion Gap 7 mmol/L BUN 43 H (9-20) mg/dL Creatinine 1.88 H (0.66-1.25) mg/dL Est GFR (CKD-EPI)AfAm 36 (>60 ml/min/1.73 sqM) Est GFR (CKD-EPI)NonAf 32 (>60 ml/min/1.73 sqM) Glucose 104 H (74-99) mg/dL Calcium 9.1 (8.4-10.2) mg/dL Total Bilirubin 0.4 (0.2-1.3) mg/dL AST 29 (17-59) U/L ALT 15 (4-49) U/L Alkaline Phosphatase 75 (38-126) U/L Troponin I (0.000-0.034) ng/mL Total Protein 7.1 (6.3-8.2) g/dL Albumin 4.1 (3.5-5.0) g/dL Coronavirus (PCR) Detected A (Not Detectd) 03/09/22 Range/Units 00:07 WBC (3.8-10.6) k/uL RBC (4.30-5.90) m/uL Hgb (13.0-17.5) gm/dL Hct (39.0-53.0) % MCV (80.0-100.0) fL MCH (25.0-35.0) pg MCHC (31.0-37.0) g/dL RDW (11.5-15.5) % Plt Count (150-450) k/uL MPV Neutrophils % % Lymphocytes % % Monocytes % % Eosinophils % % Basophils % % Neutrophils # (1.3-7.7) k/uL Lymphocytes # (1.0-4.8) k/uL Monocytes # (0-1.0) k/uL Eosinophils # (0-0.7) k/uL Basophils # (0-0.2) k/uL Sodium (137-145) mmol/L Potassium (3.5-5.1) mmol/L Chloride (98-107) mmol/L Carbon Dioxide (22-30) mmol/L Anion Gap mmol/L BUN (9-20) mg/dL Creatinine (0.66-1.25) mg/dL Est GFR (CKD-EPI)AfAm (>60 ml/min/1.73 sqM) Est GFR (CKD-EPI)NonAf (>60 ml/min/1.73 sqM) Glucose (74-99) mg/dL Calcium (8.4-10.2) mg/dL Total Bilirubin (0.2-1.3) mg/dL AST (17-59) U/L ALT (4-49) U/L Alkaline Phosphatase (38-126) U/L Troponin I 0.014 (0.000-0.034) ng/mL Total Protein (6.3-8.2) g/dL Albumin (3.5-5.0) g/dL Coronavirus (PCR) (Not Detectd) Disposition Clinical Impression: COVID-19 Disposition: HOME SELF-CARE Condition: Good Instructions (If sedation given, give patient instructions): Coronavirus Disea 2018 (COVID-19) Prescriptions: Nirmatrelvir/Ritonavir [Paxlovid 2X150 mg-100 mg (Eua)] 1 each PO ONCE #1 pack Is patient prescribed a controlled substance at d/c from ED?: No Referrals: Maksim Wu MD [Primary Care Provider] - 1-2 days
[2022-03-09 00:12] LABS: Basophils # (A) 0.1 k/uL (0-0.2); Basophils % (A) 2 %; Eosinophils # (A) 0.1 k/uL (0-0.7); Eosinophils % (A) 2 %; HCT 33.1 % (39.0-53.0); HGB 10.8 gm/dL (13.0-17.5); Lymphocytes # (A) 0.6 k/uL (1.0-4.8); Lymphocytes % (A) 13 %; MCH 29.4 pg (25.0-35.0); MCHC 32.6 g/dL (31.0-37.0); Mean Platelet Volume 7.4; Monocytes # (A) 0.4 k/uL (0-1.0); Monocytes % (A) 9 %; Neutrophils # (A) 3.3 k/uL (1.3-7.7); Neutrophils % (A) 71 %; Platelet Count 181 k/uL (150-450); RBC 3.68 m/uL (4.30-5.90); RDW 15.1 % (11.5-15.5); WBC 4.6 k/uL (3.8-10.6)
[2022-03-09 00:21] LABS: Albumin 4.1 g/dL (3.5-5.0); Calcium 9.1 mg/dL (8.4-10.2); Total Bilirubin 0.4 mg/dL (0.2-1.3); Total Protein 7.1 g/dL (6.3-8.2)
== END 2022-03-09 01:40 | disposition home or self-care (01) ==
LOC: EC 21:48
DX: U07.1 COVID-19 (principal); J44.9 Chronic obstructive pulmonary disease, unspecified; Z87.891 Personal history of nicotine dependence; Z79.51 Long term (current) use of inhaled steroids; Z88.0 Allergy status to penicillin
CPT/HCPCS: 36415; 71046; 80053; 84484; 85025; 87635; 93005; 96360; 99285

== ENCOUNTER 2022-06-25 21:56 | Inpatient (IN) | payer MEDICARE ==
--- NOTE | 2022-06-25 22:53 | ED ---
SOB HPI - General Chief Complaint: Shortness of Breath Stated Complaint: Difficulty Breathing Time Seen by Provider: 06/25/22 22:05 Source: patient Mode of arrival: EMS Limitations: no limitations - History of Present Illness Initial Comments: Patient is a pleasant 86-year-old male presenting to the emergency room via EMS with complaints of worsening shortness of breath throughout the day today despite using his home oxygen and nebulized treatments. He reports that symptoms became worse after ambulating to the restroom and did not improve while at home. He does report that symptoms have improved since being here at the hospital. He complains of a persistent cough and anterior subpectoralis chest pain unchanged with inspiration. He denies any abdominal pain, nausea, vomiting, orthopnea, headaches, dizziness, lethargy, diaphoresis, fevers or chills. He is a past medical history significant for COPD with home O2 along with pneumonia, C . diff and chronic back pain. - Related Data Home Medications Medication Instructions Recorded Confirmed Albuterol Sulfate [Ventolin HFA] 2 puff INHALATION RT-Q4H PRN 04/27/20 06/26/22 amLODIPine [Norvasc] 5 mg PO DAILY 11/30/21 06/26/22 Previous Rx's Medication Instructions Recorded Atorvastatin [Lipitor] 20 mg PO HS tab 04/27/20 Nitroglycerin Sl Tabs [Nitrostat] 0.4 mg SUBLINGUAL Q5M PRN 100 Days 12/02/21 #100 tab Budesonide/Formoterol Fumarate 1 puff INHALATION BID #10.2 gm 06/28/22 [Symbicort 160-4.5 Mcg Inhaler] Ipratropium-Albuterol Nebulize 3 ml INHALATION QID #120 ml 06/28/22 [Duoneb 0.5 mg-3 mg/3 ml Soln] predniSONE 10 mg PO DAILY #30 tab 06/28/22 Allergies Allergy/AdvReac Type Severity Reaction Status Date / Time Penicillins Allergy Unknown Verified 06/26/22 09:28 Childhood Review of Systems ROS Statement: Those systems with pertinent positive or pertinent negative responses have been documented in the HPI. ROS Other: All systems not noted in ROS Statement are negative. Past Medical History Past Medical History: COPD, Pneumonia Additional Past Medical History / Comment(s): HX C-DIFF (2011), BACK PAIN History of Any Multi-Drug Resistant Organisms: None Reported Date of last positivie culture/infection: 2012/C-Diff MDRO Source:: stool Past Surgical History: Hernia Repair Past Anesthesia/Blood Transfusion Reactions: No Reported Reaction Past Psychological History: No Psychological Hx Reported Smoking Status: Former smoker Past Alcohol Use History: Rare Past Drug Use History: None Reported - Past Family History Sister(s) Family Medical History: Cancer Additional Family Medical History / Comment(s): pancreatic Brother(s) Family Medical History: Cancer General Exam Limitations: no limitations General appearance: alert, in no apparent distress Head exam: Present: atraumatic, normocephalic, normal inspection Eye exam: Present: normal appearance, PERRL, EOMI. Absent: scleral icterus, conjunctival injection, periorbital swelling ENT exam: Present: normal exam, mucous membranes moist Neck exam: Present: normal inspection, full ROM Respiratory exam: Present: wheezes, decreased breath sounds (Throughout), other (Barrel chested). Absent: respiratory distress, rales, rhonchi, stridor, accessory muscle use Cardiovascular Exam: Present: normal rhythm, tachycardia, normal heart sounds. Absent: systolic murmur, diastolic murmur, rubs, gallop, clicks GI/Abdominal exam: Present: soft, normal bowel sounds. Absent: distended, tenderness, guarding, rebound, rigid Rectal exam: Present: deferred Extremities exam: Present: normal inspection. Absent: pedal edema, joint sw elling Back exam: Present: normal inspection Neurological exam: Present: alert, oriented X3, CN II-XII intact Psychiatric exam: Present: normal affect, normal mood Course Vital Signs 06/25/22 06/26/22 06/26/22 22:00 01:02 02:05 Temperature 98.9 F 98.5 F Pulse Rate 124 H 112 H 111 H Respiratory 20 18 17 Rate Blood Pressure 141/90 150/84 172/94 O2 Sat by Pulse 96 99 99 Oximetry 06/26/22 06/26/22 06/26/22 03:09 03:15 03:47 Temperature Pulse Rate 126 H 126 H 111 H Respiratory 18 Rate Blood Pressure 139/117 O2 Sat by Pulse 95 Oximetry 06/26/22 06/26/22 06/26/22 04:35 05:29 06:42 Temperature Pulse Rate 110 H 117 H 101 H Respiratory 18 20 20 Rate Blood Pressure 152/84 158/87 151/91 O2 Sat by Pulse 96 95 94 L Oximetry 06/26/22 06/26/22 06/26/22 10:52 13:00 15:00 Temperature Pulse Rate 112 H 96 102 H Respiratory 18 18 18 Rate Blood Pressure 173/107 157/91 158/98 O2 Sat by Pulse 95 98 97 Oximetry 06/26/22 15:39 Temperature Pulse Rate 110 H Respiratory Rate Blood Pressure O2 Sat by Pulse 92 L Oximetry Medical Decision Making - Medical Decision Making 86-year-old male presenting to the emergency room with complaints of increase in chronic shortness of breath worse with exertion along with some pectoralis chest pain. Mild tachycardia upon exam with no significant hypoxemia on 3 L nasal cannula baseline oxygen at home. Will work up for shortness of breath along with chest pain with EKG, chest x-ray, blood cultures, CMP, CBC, troponin, d-dimer, lactic acid and proBNP. EKG shows sinus tachycardia. CBC without leukocytosis chronic anemia noted with a hemoglobin of 11.4. Troponin indeterminate at 0.027. ProBNP normal at 221. Lactic acid normal. Labs reveal BUN and creatinine slightly elevated BUN 35 creatinine 1.79. Chest xray image interpreted by me shows left lung infiltrate. Will give dose of IV steriods and add Cephid swab. No indication for additional nebulized treatment; took nebulized treatment at home prior to arrival. Patient will require admission for further evaluation and treatment of left lobe infiltrate along with monitoring of troponin for chest pain. Patient presentation and findings reviewed with Dr. Silveira who [facility]; will place admission orders with continuation of steriod treatments, no indication for IV antibiotics at this time. D-dimer resulted and mildly elevated at 1.[address] angio of chest at this time in the setting of impaired renal function will give IV fluid bolus along with weight based lovenox dose and order VQ scan for further evaluation in AM. Case discussed with Dr. Rincon. - Lab Data Result diagrams: 06/26/22 00:46 06/26/22 00:46 Lab Results 06/25/22 06/25/22 06/25/22 Range/Units 22:57 22:57 22:57 WBC 9.1 (3.8-10.6) k/uL RBC 3.81 L (4.30-5.90) m/uL Hgb 11.4 L (13.0-17.5) gm/dL Hct 34.6 L (39.0-53.0) % MCV 90.8 (80.0-100.0) fL MCH 29.9 (25.0-35.0) pg MCHC 33.0 (31.0-37.0) g/dL RDW 14.7 (11.5-15.5) % Plt Count 191 (150-450) k/uL MPV 8.0 Neutrophils % 84 % Lymphocytes % 8 % Monocytes % 4 % Eosinophils % 3 % Basophils % 0 % Neutrophils # 7.7 (1.3-7.7) k/uL Lymphocytes # 0.7 L (1.0-4.8) k/uL Monocytes # 0.3 (0-1.0) k/uL Eosinophils # 0.3 (0-0.7) k/uL Basophils # 0.0 (0-0.2) k/uL PT 9.8 (9.0-12.0) sec INR 0.9 (<1.2) APTT 21.8 L (22.0-30.0) sec D-Dimer 1.51 H (<0.60) mg/L FEU Sodium 138 (137-145) mmol/L Potassium 5.0 (3.5-5.1) mmol/L Chloride 104 (98-107) mmol/L Carbon Dioxide 25 (22-30) mmol/L Anion Gap 9 mmol/L BUN 35 H (9-20) mg/dL Creatinine 1.79 H (0.66-1.25) mg/dL Est GFR (CKD-EPI)AfAm 39 (>60 ml/min/1.73 sqM) Est GFR (CKD-EPI)NonAf 34 (>60 ml/min/1.73 sqM) Glucose 100 H (74-99) mg/dL Plasma Lactic Acid Albar[place] (0.7-2.0) mmol/L Calcium 8.8 (8.4-10.2) mg/dL Total Bilirubin 0.4 (0.2-1.3) mg/dL AST 35 (17-59) U/L ALT 20 (4-49) U/L Alkaline Phosphatase 106 (38-126) U/L Troponin I (0.000-0.034) ng/mL NT-Pro-B Natriuret Pep pg/mL Total Protein 7.5 (6.3-8.2) g/dL Albumin 4.6 (3.5-5.0) g/dL Influenza Type A (PCR) (Not Detectd) Influenza Type B (PCR) (Not Detectd) RSV (PCR) (Not Detectd) SARS-CoV-2 (PCR) (Not Detectd) 06/25/22 06/25/22 06/25/22 Range/Units 22:57 22:57 22:57 WBC (3.8-10.6) k/uL RBC (4.30-5.90) m/uL Hgb (13.0-17.5) gm/dL Hct (39.0-53.0) % MCV (80.0-100.0) fL MCH (25.0-35.0) pg MCHC (31.0-37.0) g/dL RDW (11.5-15.5) % Plt Count (150-450) k/uL MPV Neutrophils % % Lymphocytes % % Monocytes % % Eosinophils % % Basophils % % Neutrophils # (1.3-7.7) k/uL Lymphocytes # (1.0-4.8) k/uL Monocytes # (0-1.0) k/uL Eosinophils # (0-0.7) k/uL Basophils # (0-0.2) k/uL PT (9.0-12.0) sec INR (<1.2) APTT (22.0-30.0) sec D-Dimer (<0.60) mg/L FEU Sodium (137-145) mmol/L Potassium (3.5-5.1) mmol/L Chloride (98-107) mmol/L Carbon Dioxide (22-30) mmol/L Anion Gap mmol/L BUN (9-20) mg/dL Creatinine (0.66-1.25) mg/dL Est GFR (CKD-EPI)AfAm (>60 ml/min/1.73 sqM) Est GFR (CKD-EPI)NonAf (>60 ml/min/1.73 sqM) Glucose (74-99) mg/dL Plasma Lactic Acid [place]baro 1.1 (0.7-2.0) mmol/L Calcium (8.4-10.2) mg/dL Total Bilirubin (0.2-1.3) mg/dL AST (17-59) U/L ALT (4-49) U/L Alkaline Phosphatase (38-126) U/L Troponin I 0.027 (0.000-0.034) ng/mL NT-Pro-B Natriuret Pep 221 pg/mL Total Protein (6.3-8.2) g/dL Albumin (3.5-5.0) g/dL Influenza Type A (PCR) (Not Detectd) Influenza Type B (PCR) (Not Detectd) RSV (PCR) (Not Detectd) SARS-CoV-2 (PCR) (Not Detectd) 06/26/22 06/26/22 06/26/22 Range/Units 00:46 00:46 00:46 WBC 8.9 (3.8-10.6) k/uL RBC 3.71 L (4.30-5.90) m/uL Hgb 11.1 L (13.0-17.5) gm/dL Hct 33.6 L (39.0-53.0) % MCV 90.6 (80.0-100.0) fL MCH 29.9 (25.0-35.0) pg MCHC 32.9 (31.0-37.0) g/dL RDW 14.6 (11.5-15.5) % Plt Count 188 (150-450) k/uL MPV 8.0 Neutrophils % 80 % Lymphocytes % 11 % Monocytes % 5 % Eosinophils % 2 % Basophils % 0 % Neutrophils # 7.1 (1.3-7.7) k/uL Lymphocytes # 1.0 (1.0-4.8) k/uL Monocytes # 0.4 (0-1.0) k/uL Eosinophils # 0.2 (0-0.7) k/uL Basophils # 0.0 (0-0.2) k/uL PT (9.0-12.0) sec INR (<1.2) APTT (22.0-30.0) sec D-Dimer (<0.60) mg/L FEU Sodium 138 (137-145) mmol/L Potassium 5.0 (3.5-5.1) mmol/L Chloride 104 (98-107) mmol/L Carbon Dioxide 27 (22-30) mmol/L Anion Gap 7 mmol/L BUN 37 H (9-20) mg/dL Creatinine 1.66 H (0.66-1.25) mg/dL Est GFR (CKD-EPI)AfAm 42 (>60 ml/min/1.73 sqM) Est GFR (CKD-EPI)NonAf 37 (>60 ml/min/1.73 sqM) Glucose 113 H (74-99) mg/dL Plasma Lactic Acid [place]baro (0.7-2.0) mmol/L Calcium 8.8 (8.4-10.2) mg/dL Total Bilirubin (0.2-1.3) mg/dL AST (17-59) U/L ALT (4-49) U/L Alkaline Phosphatase (38-126) U/L Troponin I (0.000-0.034) ng/mL NT-Pro-B Natriuret Pep pg/mL Total Protein (6.3-8.2) g/dL Albumin (3.5-5.0) g/dL Influenza Type A (PCR) Not Detected (Not Detectd) Influenza Type B (PCR) Not Detected (Not Detectd) RSV (PCR) Detected A (Not Detectd) SARS-CoV-2 (PCR) Not Detected (Not Detectd) 06/26/22 06/26/22 Range/Units 02:58 05:54 WBC (3.8-10.6) k/uL RBC (4.30-5.90) m/uL Hgb (13.0-17.5) gm/dL Hct (39.0-53.0) % MCV (80.0-100.0) fL MCH (25.0-35.0) pg MCHC (31.0-37.0) g/dL RDW (11.5-15.5) % Plt Count (150-450) k/uL MPV Neutrophils % % Lymphocytes % % Monocytes % % Eosinophils % % Basophils % % Neutrophils # (1.3-7.7) k/uL Lymphocytes # (1.0-4.8) k/uL Monocytes # (0-1.0) k/uL Eosinophils # (0-0.7) k/uL Basophils # (0-0.2) k/uL PT (9.0-12.0) sec INR (<1.2) APTT (22.0-30.0) sec D-Dimer (<0.60) mg/L FEU Sodium (137-145) mmol/L Potassium (3.5-5.1) mmol/L Chloride (98-107) mmol/L Carbon Dioxide (22-30) mmol/L Anion Gap mmol/L BUN (9-20) mg/dL Creatinine (0.66-1.25) mg/dL Est GFR (CKD-EPI)AfAm (>60 ml/min/1.73 sqM) Est GFR (CKD-EPI)NonAf (>60 ml/min/1.73 sqM) Glucose (74-99) mg/dL Plasma Lactic Acid Albaro (0.7-2.0) mmol/L Calcium (8.4-10.2) mg/dL Total Bilirubin (0.2-1.3) mg/dL AST (17-59) U/L ALT (4-49) U/L Alkaline Phosphatase (38-126) U/L Troponin I 0.071 H* 0.087 H* (0.000-0.034) ng/mL NT-Pro-B Natriuret Pep pg/mL Total Protein (6.3-8.2) g/dL Albumin (3.5-5.0) g/dL Influenza Type A (PCR) (Not Detectd) Influenza Type B (PCR) (Not Detectd) RSV (PCR) (Not Detectd) SARS-CoV-2 (PCR) (Not Detectd) - EKG Data EKG Comments: EKG completed at 2304 interpreted by me shows sinus tachycardia, ventricular rate 119 BPM, MA interval 181 ms, QRS duration 89 ms, QT/QTc 290/361, PRT axes 85, 83, 70 - Radiology Data Radiology results: report reviewed, image reviewed Chest x-ray two-view impression by radiologist pulmonary infiltrates in the left and mid lower lung field slightly worse than last exam and likely related to fibrosis and atelectasis. Follow-up is recommended to show long-term stability or clearing. No heart failure. Comparison 03/08/2022 Disposition Clinical Impression: Acute exacerbation of chronic obstructive pulmonary disease, Chest pain Disposition: ADMITTED IP TO THIS HOSP Is patient prescribed a controlled substance at d/c from ED?: No Time of Disposition: 00:08
[2022-06-25 23:08] LABS: Basophils % (A) 0 %; Eosinophils # (A) 0.3 k/uL (0-0.7); Eosinophils % (A) 3 %; HCT 34.6 % (39.0-53.0); HGB 11.4 gm/dL (13.0-17.5); Lymphocytes # (A) 0.7 k/uL (1.0-4.8); Lymphocytes % (A) 8 %; MCH 29.9 pg (25.0-35.0); MCV 90.8 fL (80.0-100.0); Monocytes # (A) 0.3 k/uL (0-1.0); Monocytes % (A) 4 %; Neutrophils # (A) 7.7 k/uL (1.3-7.7); Neutrophils % (A) 84 %; Platelet Count 191 k/uL (150-450); RBC 3.81 m/uL (4.30-5.90); RDW 14.7 % (11.5-15.5); WBC 9.1 k/uL (3.8-10.6)
[2022-06-25 23:17] LABS: Albumin 4.6 g/dL (3.5-5.0); Calcium 8.8 mg/dL (8.4-10.2); Total Bilirubin 0.4 mg/dL (0.2-1.3); Total Protein 7.5 g/dL (6.3-8.2)
[2022-06-25 23:24] LABS: INR 0.9 (<1.2); Prothrombin Time 9.8 sec (9.0-12.0)
[2022-06-25 23:31] LABS: Partial Thromboplastin Time 21.8 sec (22.0-30.0)
[2022-06-26] MEDS ORDERED: SODIUM CHLORIDE 0.9% 1,000 ML IV STA (00:02)
[2022-06-26] MEDS ORDERED: ENOXAPARIN 60 MG/0.6 ML SYRINGE SQ ONE (00:03)
[2022-06-26] MEDS ORDERED: NALOXONE 0.4 MG/ML 1 ML VIAL IV PRN (00:04)
--- NOTE | 2022-06-26 00:16 | XR ---
EXAMINATION TYPE: XR chest 2V DATE OF EXAM: 06/25/2022 COMPARISON: 03/08/2022 HISTORY: Short of breath TECHNIQUE: 2 views FINDINGS: Heart is normal. There is some patchy mild infiltrate in the left lower lobe. Right lung is fairly clear. No heart failure. Thoracic aorta is atheromatous. There is likely some pleural plaque in the left midlung field. 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 Follow-up is recommended to show long-term stability or clearing. No heart failure.
[2022-06-26] MEDS: methylPREDNISolone SOD SUCCI 125 MG/2 ML VIAL IV SCH ×3 (00:39→15:48)
[2022-06-26 01:01] LABS: Basophils % (A) 0 %; Eosinophils # (A) 0.2 k/uL (0-0.7); Eosinophils % (A) 2 %; HCT 33.6 % (39.0-53.0); HGB 11.1 gm/dL (13.0-17.5); Lymphocytes % (A) 11 %; MCH 29.9 pg (25.0-35.0); MCHC 32.9 g/dL (31.0-37.0); MCV 90.6 fL (80.0-100.0); Monocytes # (A) 0.4 k/uL (0-1.0); Monocytes % (A) 5 %; Neutrophils # (A) 7.1 k/uL (1.3-7.7); Neutrophils % (A) 80 %; Platelet Count 188 k/uL (150-450); RBC 3.71 m/uL (4.30-5.90); RDW 14.6 % (11.5-15.5); WBC 8.9 k/uL (3.8-10.6)
[2022-06-26 01:11] LABS: Calcium 8.8 mg/dL (8.4-10.2)
[2022-06-26] MEDS ORDERED: IPRATROPIUM-ALBUTEROL 3 ML NEB INHALATION STA (03:03)
--- NOTE | 2022-06-26 08:56 | NM ---
EXAMINATION TYPE: NM pul perfusion DATE OF EXAM: 06/26/2022 COMPARISON: 12/01/2021 HISTORY: Shortness of breath Following administration of 4.9 mCi Tc 99m MAA. Images obtained post injection. FINDINGS: Only perfusion images are submitted there are scattered peripheral bilateral areas of reduced uptake subsegmental in size. No ventilation images IMPRESSION: There are bilateral subsegmental perfusion defects. No ventilation images are submitted to assess for probability Pulmonary embolus would be in the differential diagnosis.
[2022-06-26] MEDS ORDERED: NITROGLYCERIN SL TABS 0.4 MG TAB SUBLINGUAL PRN (09:59)
[2022-06-26] MEDS ORDERED: ALBUTEROL NEBULIZED 2.5 MG/3 ML INHALATION PRN (09:59)
[2022-06-26] MEDS: amLODIPine 5 MG TAB PO SCH (10:47)
[2022-06-26] MEDS ORDERED: LACTULOSE 20 GM/30 ML CUP PO PRN (12:08)
[2022-06-26] MEDS ORDERED: ACETAMINOPHEN TAB 325 MG TAB PO PRN (12:08)
[2022-06-26] MEDS ORDERED: TEMAZEPAM 15 MG CAP PO PRN (12:08)
[2022-06-26] MEDS ORDERED: ONDANSETRON 4 MG/2 ML VIAL IVP PRN (12:08)
[2022-06-26] MEDS ORDERED: LORazepam 0.5 MG TAB PO PRN (12:08)
[2022-06-26] MEDS: BUDESONIDE 1 MG/2 ML NEBU INHALATION SCH ×2 (15:15→20:37)
[2022-06-26] MEDS: FORMOTEROL FUMARATE 20 MCG/2 ML NEBU INHALATION SCH ×2 (15:15→20:37)
[2022-06-26] MEDS: IPRATROPIUM-ALBUTEROL 3 ML NEB INHALATION SCH ×3 (15:39→23:42)
--- NOTE | 2022-06-26 16:39 | P.HPIM ---
History of Present Illness H&P Date: 06/26/22 Chief Complaint: Short of breath I'm rounding for Dr. Maksim Wu. This is a 86-year-old patient who follows with Dr. Maksim Wu. Chronic stable medical conditions include hypertension, hyperlipidemia, chronic low back pain. Patient's an ex-smoker. Has been progressively getting short of breath for over a year. More so in the last day or so. Became increasingly short of breath wheezing. Meraz sputum. No fever no chills. Appetite is okay. Not able to speak in full sentences. Nobody else around him is sick. Tested positive for RSV in the ER. at the bedside. Review of systems: GEN.: Tired, EYES: None HEENT: Decreased hearing NECK: None RESPIRATORY: As above CARDIOVASCULAR: No chest pain GASTROINTESTINAL: None GENITOURINARY: None MUSCULOSKELETAL: None LYMPHATICS: None HEMATOLOGICAL: None PSYCHIATRY: Bit anxious NEUROLOGICAL: None. Past medical history to include: COPD, hypertension, low back pain, hyperlipidemia Social history: . Alcohol rarely. Smoked for 50-60 years half a pack a day stopped in 2019. Physical examination: VITAL SIGNS: 98.9, 124, 20, 144/90, 96% on 2 L, peripheral presentation GENERAL: BMI 20.7, sitting up short of breath anxious. EYES: Pupils equal. Conjunctiva normal. HEENT: External appearance of nose and ears normal, oral cavity grossly normal. NECK: JVD not raised; masses not palpable. HEART: First and second heart sounds are normal; no edema. LUNGS: Respiratory rate increased, accessory muscles of working, not able to speak in full sentences, poor air entry. ABDOMEN: Soft, nontender, liver spleen not palpable, no masses palpable. PSYCH: Alert and oriented x3; mood and affect anxiousl. MUSCULOSKELETAL:No Clubbing/cyanosis;muscles-grossly intact, OA NEUROLOGICAL: Cranial nerves grossly intact; no facial asymmetry, power and sensation grossly intact. LYMPHATICS: No lymph nodes palpable in the axilla and neck INVESTIGATIONS, reviewed in the clinical context: White count 8.9 hemoglobin 11.1 platelets 188 potassium 5.37 creatinine 1.66 Troponin I 0.027, 0.071, 0.087 ProBNP 221 Influenza type A/type B/COVID 19 PCR: Not detected RSV PCR: Detected EKG tracing personally reviewed by me-normal sinus rhythm. Heart rate 119 Chest x-ray film personally reviewed by me-infiltrates. Assessment and plan: -Acute severe COPD exacerbation in an ex-smoker precipitated by RSV infection DuoNeb every 4, nebulized Pulmicort, IV Solu-Medrol. -Acute RSV infection/pneumonitis -Hyperlipidemia Lipitor -Essential hypertension Norvasc DuoNeb every 4, nebulized Pulmicort, IV Solu-Medrol, subcu Lovenox, resume home medications. Care was discussed with the patient and at the bedside. Patient is very short of breath at rest. Given the complexity and severity of patient's condition expect the patient to be in the hospital at least for 2 overnights Past Medical History Past Medical History: COPD, Pneumonia Additional Past Medical History / Comment(s): HX C-DIFF (2011), BACK PAIN History of Any Multi-Drug Resistant Organisms: None Reported Date of last positivie culture/infection: 2011/C-Diff MDRO Source:: stool Past Surgical History: Hernia Repair Past Anesthesia/Blood Transfusion Reactions: No Reported Reaction Past Psychological History: No Psychological Hx Reported Smoking Status: Former smoker Past Alcohol Use History: Rare Past Drug Use History: None Reported - Past Family History Sister(s) Family Medical History: Cancer Additional Family Medical History / Comment(s): pancreatic Brother(s) Family Medical History: Cancer Medications and Allergies Home Medications Medication Instructions Recorded Confirmed Type Albuterol Sulfate [Ventolin HFA] 2 puff INHALATION RT-Q4H PRN 04/27/20 06/26/22 History Atorvastatin [Lipitor] 20 mg PO HS tab 04/27/20 06/26/22 Rx amLODIPine [Norvasc] 5 mg PO DAILY 11/30/21 06/26/22 History Nitroglycerin Sl Tabs [Nitrostat] 0.4 mg SUBLINGUAL Q5M PRN 100 Days 12/02/21 06/26/22 Rx #100 tab Allergies Allergy/AdvReac Type Severity Reaction Status Date / Time Penicillins Allergy Unknown Verified 06/26/22 09:28 Childhood Physical Exam Vitals: Vital Signs Temp Pulse Resp BP Pulse Ox 06/26/22 06:42 101 H 20 151/91 94 L 06/26/22 05:29 117 H 20 158/87 95 06/26/22 04:35 110 H 18 152/84 96 06/26/22 03:47 111 H 18 139/117 95 06/26/22 03:15 126 H 06/26/22 03:09 126 H 06/26/22 02:05 98.5 F 111 H 17 172/94 99 06/26/22 01:02 112 H 18 150/84 99 06/25/22 22:00 98.9 F 124 H 20 141/90 96 Intake and Output 06/25/22 06/26/22 06/26/22 22:59 06:59 14:59 Other: Weight 63.503 kg Results CBC & Chem 7: 06/26/22 00:46 06/26/22 00:46 Labs: Abnormal Lab Results - Last 24 Hours (Table) 06/25/22 06/25/22 06/25/22 Range/Units 22:57 22:57 22:57 RBC 3.81 L (4.30-5.90) m/uL Hgb 11.4 L (13.0-17.5) gm/dL Hct 34.6 L (39.0-53.0) % Lymphocytes # 0.7 L (1.0-4.8) k/uL APTT 21.8 L (22.0-30.0) sec D-Dimer 1.51 H (<0.60) mg/L FEU BUN 35 H (9-20) mg/dL Creatinine 1.79 H (0.66-1.25) mg/dL Glucose 100 H (74-99) mg/dL Troponin I (0.000-0.034) ng/mL RSV (PCR) (Not Detectd) 06/26/22 06/26/22 06/26/22 Range/Units 00:46 00:46 00:46 RBC 3.71 L (4.30-5.90) m/uL Hgb 11.1 L (13.0-17.5) gm/dL Hct 33.6 L (39.0-53.0) % Lymphocytes # (1.0-4.8) k/uL APTT (22.0-30.0) sec D-Dimer (<0.60) mg/L FEU BUN 37 H (9-20) mg/dL Creatinine 1.66 H (0.66-1.25) mg/dL Glucose 113 H (74-99) mg/dL Troponin I (0.000-0.034) ng/mL RSV (PCR) Detected A (Not Detectd) 06/26/22 06/26/22 Range/Units 02:58 05:54 RBC (4.30-5.90) m/uL Hgb (13.0-17.5) gm/dL Hct (39.0-53.0) % Lymphocytes # (1.0-4.8) k/uL APTT (22.0-30.0) sec D-Dimer (<0.60) mg/L FEU BUN (9-20) mg/dL Creatinine (0.66-1.25) mg/dL Glucose (74-99) mg/dL Troponin I 0.071 H* 0.087 H* (0.000-0.034) ng/mL RSV (PCR) (Not Detectd)
[2022-06-26] MEDS: ENOXAPARIN 40 MG/0.4 ML SYRINGE SQ SCH (19:59)
[2022-06-26] MEDS: ATORVASTATIN 20 MG TAB PO SCH (19:59)
[2022-06-27] MEDS: methylPREDNISolone SOD SUCCI 125 MG/2 ML VIAL IV SCH ×4 (00:22→23:57)
[2022-06-27] MEDS: IPRATROPIUM-ALBUTEROL 3 ML NEB INHALATION SCH ×6 (03:37→19:55)
[2022-06-27] MEDS: BUDESONIDE 1 MG/2 ML NEBU INHALATION SCH ×2 (06:58→19:54)
[2022-06-27] MEDS: FORMOTEROL FUMARATE 20 MCG/2 ML NEBU INHALATION SCH ×2 (06:58→19:54)
[2022-06-27] MEDS: amLODIPine 5 MG TAB PO SCH (07:43)
--- NOTE | 2022-06-27 13:51 | P.PN ---
Progress Note - Text Progress Note Date: 06/27/22 Chief Complaint: Short of breath I'm rounding for Dr. Maksim Wu. This is a 86-year-old patient who follows with Dr. Maksim Wu. Chronic stable medical conditions include hypertension, hyperlipidemia, chronic low back pain. Patient's an ex-smoker. Has been progressively getting short of breath for over a year. More so in the last day or so. Became increasingly short of breath wheezing. Meraz sputum. No fever no chills. Appetite is okay. Not able to speak in full sentences. Nobody else around him is sick. Tested positive for RSV in the ER. at the bedside. 06/27/2022: Admitted with severe COPD exacerbation and RSV infection. Feeling better. Appetite is started improved. Less wheezing. Less short of breath. Active Medications Acetaminophen (Acetaminophen Tab 325 Mg Tab) 650 mg PO Q6HR PRN PRN Reason: Mild Pain or Fever > 100.5 Albuterol Sulfate (Albuterol Nebulized 2.5 Mg/3 Ml) 2.5 mg INHALATION RT-Q4H PRN PRN Reason: Shortness Of Breath Albuterol/Ipratropium (Ipratropium-Albuterol 3 Ml Neb) 3 ml INHALATION RT-Q4H [facility] Last Admin: 06/27/22 12:36 Dose: 3 ml Amlodipine Besylate (Amlodipine 5 Mg Tab) 5 mg PO DAILY [facility] Last Admin: 06/27/22 07:43 Dose: 5 mg Atorvastatin Calcium (Atorvastatin 20 Mg Tab) 20 mg PO HS [facility] Last Admin: 06/26/22 19:59 Dose: 20 mg Budesonide (Budesonide 1 Mg/2 Ml Nebu) 1 mg INHALATION RT-BID [facility] Last Admin: 06/27/22 06:58 Dose: 1 mg Calcium Carbonate/Glycine (Calcium Carbonate 500 Mg Chewable) 1,000 mg PO Q4HR PRN PRN Reason: Dyspepsia Enoxaparin Sodium (Enoxaparin 40 Mg/0.4 Ml Syringe) 40 mg SQ [facility] Last Admin: 06/26/22 19:59 Dose: 40 mg Formoterol Fumarate (Formoterol Fumarate 20 Mcg/2 Ml Nebu) 20 mcg INHALATION RT-BID [facility] Last Admin: 06/27/22 06:58 Dose: 20 mcg Lactulose (Lactulose 20 Gm/30 Ml Cup) 20 gm PO DAILY PRN PRN Reason: Constipation Lorazepam (Lorazepam 0.5 Mg Tab) 0.5 mg PO Q6HR PRN PRN Reason: Anxiety Methylprednisolone Sodium Succinate (Methylprednisolone Sod Succi 125 Mg/2 Ml Vial) 60 mg IV Q8H [facility] Last Admin: 06/27/22 07:42 Dose: 60 mg Naloxone HCl (Naloxone 0.4 Mg/Ml 1 Ml Vial) 0.2 mg IV Q2M PRN PRN Reason: Opioid Reversal Nitroglycerin (Nitroglycerin Sl Tabs 0.4 Mg Tab) 0.4 mg SUBLINGUAL Q5M PRN PRN Reason: Chest Pain Ondansetron HCl (Ondansetron 4 Mg/2 Ml Vial) 4 mg IVP Q8HR PRN PRN Reason: Nausea And Vomiting Temazepam (Temazepam 15 Mg Cap) 15 mg PO HS PRN PRN Reason: Insomnia Past medical history to include: COPD, hypertension, low back pain, hyperlipidemia Social history: . Alcohol rarely. Smoked for 50-60 years half a pack a day stopped in 2019. Physical examination: VITAL SIGNS: 98, 1 was 9, 17, 160 was 82, 94% room air GENERAL: Sitting on the edge of the bed, some shortness of breath EYES: Pupils equal. Conjunctiva normal. HEENT: External appearance of nose and ears normal, oral cavity grossly normal. NECK: JVD not raised; masses not palpable. HEART: First and second heart sounds are normal; no edema. LUNGS: Respiratory rate increased, decreased air entry ABDOMEN: Soft, nontender, liver spleen not palpable, no masses palpable. PSYCH: Alert and oriented x3; mood and affect anxiousl. MUSCULOSKELETAL:No Clubbing/cyanosis;muscles-grossly intact, OA INVESTIGATIONS, reviewed in the clinical context: White count 8.9 hemoglobin 11.1 platelets 188 potassium 5.37 creatinine 1.66 Troponin I 0.027, 0.071, 0.087 ProBNP 221 Influenza type A/type B/COVID 19 PCR: Not detected RSV PCR: Detected EKG tracing personally reviewed by me-normal sinus rhythm. Heart rate 119 Chest x-ray film personally reviewed by me-infiltrates. Assessment and plan: -Acute severe COPD exacerbation in an ex-smoker precipitated by RSV infection: Slow to respond DuoNeb every 4, nebulized Pulmicort, IV Solu-Medrol. -Troponin leak likely from hemodynamic mismatch. Doubt ACS. Cardiology consulted. Telemetry. -Chronic kidney disease, stage III likely nephrosclerosis Follow renal function -Acute RSV infection/pneumonitis -Hyperlipidemia Lipitor -Essential hypertension Norvasc DuoNeb every 4, nebulized Pulmicort, IV Solu-Medrol, subcu Lovenox, discussed with the patient. Increase activity. Up in chair.
--- NOTE | 2022-06-27 15:10 | P.CRDCN ---
History of Present Illness History of present illness: HISTORY OF PRESENTING ILLNESS Patient is pleasant 86-year-old male with history of hypertension, arthritis and back pain, previous tobacco abuse however quit who presents secondary to worsen ing shortness of breath. He admits he has been having some dyspnea over the past year mainly with exertion however started feeling more short of breath and therefore came to emergency department. He was checked for viral panel and was found to be positive for RSV. Currently he states he has been feeling somewhat better. Hemoglobin 11.4, d-dimer 1.5, creatinine 1.7, 1.6, troponin 0.02, 0.07, 0.08, proBNP 221. He denies any chest pain or pressure. Denies any history of coronary artery disease. EKG shows sinus tachycardia, normal axis, no significant ST or T wave abnormalities Patient underwent PET scan however only perfusion images were obtained and there were some bilateral subsegmental perfusion defects however nonspecific given no ventilation images. REVIEW OF SYSTEMS At the time of my exam: CONSTITUTIONAL: Denies fever or chills. CARDIOVASCULAR: Denies chest pain, +shortness of breath, no orthopnea, PND or palpitations. RESPIRATORY: Denies cough. GASTROINTESTINAL: Denies abdominal pain, diarrhea, constipation, nausea or vomiting. MUSCULOSKELETAL: Denies myalgias. NEUROLOGIC: Denies numbness, tingling or weakness. ENDOCRINE: Denies fatigue, weight change, polydipsia or polyurina. GENITOURINARY: Denies burning, hematuria or urgency with micturation. HEMATOLOGIC: Denies history of anemia or bleeding. PHYSICAL EXAMINATION Vital signs reviewed. CONSTITUTIONAL: No apparent distress. HEENT: Head is normocephalic. Pupils are equal, round. Sclerae anicteric. Mucous membranes of the mouth are moist. No JVD. No carotid bruit. CHEST EXAMINATION: Decreased breath sounds bilaterally HEART EXAMINATION: Regular rate and rhythm. S1, S2 heard. No murmurs, gallops or rub. ABDOMEN: Soft, nontender. Positive bowel sounds. EXTREMITIES: 2+ peripheral pulses, no lower extremity edema and no calf tenderness. NEUROLOGIC EXAMINATION: Patient is awake, alert and oriented x3. ASSESSMENT 1. Non-STEMI, likely type II mechanism related to COPD exacerbation, RSV infection. No angina-type symptoms 2. Acute RSV infection 3. Acute exacerbation of COPD 4. Dyspnea on exertion over the past year rule out anginal equivalent 5. Elevated d-dimer, ventilation portion of the VQ scan not able to be obtained PLAN Majority of presentation is related to RSV infection. Continue supportive care. Elevated d-dimer of unclear significance. Check lower extremity ultrasound for any DVT. Check 2-D echo to evaluate left ventricular function. May consider outpatient stress testing once recovered from RSV. Past Medical History Past Medical History: COPD, Pneumonia Additional Past Medical History / Comment(s): HX C-DIFF (2011), BACK PAIN History of Any Multi-Drug Resistant Organisms: None Reported Date of last positivie culture/infection: 2011/C-Diff MDRO Source:: stool Past Surgical History: Hernia Repair Past Anesthesia/Blood Transfusion Reactions: No Reported Reaction Past Psychological History: No Psychological Hx Reported Smoking Status: Former smoker Past Alcohol Use History: Rare Past Drug Use History: None Reported - Past Family History Sister(s) Family Medical History: Cancer Additional Family Medical History / Comment(s): pancreatic Brother(s) Family Medical History: Cancer Medications and Allergies Home Medications Medication Instructions Recorded Confirmed Type Albuterol Sulfate [Ventolin HFA] 2 puff INHALATION RT-Q4H PRN 04/27/20 06/26/22 History Atorvastatin [Lipitor] 20 mg PO HS tab 04/27/20 06/26/22 Rx amLODIPine [Norvasc] 5 mg PO DAILY 11/30/21 06/26/22 History Nitroglycerin Sl Tabs [Nitrostat] 0.4 mg SUBLINGUAL Q5M PRN 100 Days 12/02/21 06/26/22 Rx #100 tab Allergies Allergy/AdvReac Type Severity Reaction Status Date / Time Penicillins Allergy Unknown Verified 06/26/22 09:28 Childhood Physical Exam Vitals: Vital Signs Temp Pulse Pulse Resp BP Pulse Ox 06/27/22 12:45 110 H 06/27/22 12:37 108 H 06/27/22 11:37 112 H 18 161/82 94 L 06/27/22 07:45 98 F 119 H 17 156/88 91 L 06/27/22 07:24 106 H 06/27/22 07:07 104 H 06/27/22 07:00 100 95 06/27/22 03:41 107 H 16 123/66 95 06/27/22 00:22 98.1 F 112 H 18 124/60 94 L 06/26/22 23:54 112 H 06/26/22 23:45 114 H 06/26/22 21:10 114 H 06/26/22 20:55 109 H 06/26/22 20:39 107 H 94 L 06/26/22 19:46 98.1 F 106 H 18 137/71 93 L 06/26/22 15:50 98 F 110 H 18 154/80 99 06/26/22 15:49 105 H 06/26/22 15:39 110 H 92 L Intake and Output 06/27/22 06/27/22 06/27/22 06:59 14:59 22:59 Intake Total 240 720 Balance 240 720 Intake: Oral 720 Blood Product 240 Other: Voiding Method Toilet Toilet # Voids 1 Results 06/26/22 00:46 06/26/22 00:46 Current Medications Generic Name Dose Route Start Last Admin Trade Name Freq PRN Reason Stop Dose Admin Acetaminophen 650 mg 06/26/22 12:08 Acetaminophen Tab 325 Mg Tab PO Q6HR PRN Mild Pain or Fever > 100.5 Albuterol Sulfate 2.5 mg 06/26/22 09:59 Albuterol Nebulized 2.5 Mg/3 Ml INHALATION RT-Q4H PRN Shortness Of Breath Albuterol/Ipratropium 3 ml 06/26/22 16:00 06/27/22 12:36 Ipratropium-Albuterol 3 Ml Neb INHALATION 3 ml RT-Q4H [facility] Administration Amlodipine Besylate 5 mg 06/26/22 10:00 06/27/22 07:43 Amlodipine 5 Mg Tab PO 5 mg DAILY [facility] Administration Atorvastatin Calcium 20 mg 06/26/22 21:00 06/26/22 19:59 Atorvastatin 20 Mg Tab PO 20 mg HS [facility] Administration Budesonide 1 mg 06/26/22 12:06 06/27/22 06:58 Budesonide 1 Mg/2 Ml Nebu INHALATION 1 mg RT-BID [facility] Administration Calcium Carbonate/Glycine 1,000 mg 06/26/22 12:08 Calcium Carbonate 500 Mg Chewable PO Q4HR PRN Dyspepsia Enoxaparin Sodium 40 mg 06/26/22 21:00 06/26/22 19:59 Enoxaparin 40 Mg/0.4 Ml Syringe SQ 40 mg HS [facility] Administration Formoterol Fumarate 20 mcg 06/26/22 12:08 06/27/22 06:58 Formoterol Fumarate 20 Mcg/2 Ml Nebu INHALATION 20 mcg RT-BID [facility] Administration Lactulose 20 gm 06/26/22 12:08 Lactulose 20 Gm/30 Ml Cup PO DAILY PRN Constipation Lorazepam 0.5 mg 06/26/22 12:08 Lorazepam 0.5 Mg Tab PO Q6HR PRN Anxiety Methylprednisolone Sodium Succinate 60 mg 06/26/22 00:15 06/27/22 07:42 Methylprednisolone Sod Succi 125 Mg/2 Ml Vial IV 60 mg Q8H [facility] Administration Naloxone HCl 0.2 mg 06/26/22 00:04 Naloxone 0.4 Mg/Ml 1 Ml Vial IV Q2M PRN Opioid Reversal Nitroglycerin 0.4 mg 06/26/22 09:59 Nitroglycerin Sl Tabs 0.4 Mg Tab SUBLINGUAL Q5M PRN Chest Pain Ondansetron HCl 4 mg 06/26/22 12:08 Ondansetron 4 Mg/2 Ml Vial IVP Q8HR PRN Nausea And Vomiting Temazepam 15 mg 06/26/22 12:08 Temazepam 15 Mg Cap PO HS PRN Insomnia Intake and Output 06/27/22 06/27/22 06/27/22 06:59 14:59 22:59 Intake Total 240 720 Balance 240 720 Intake: Oral 720 Blood Product 240 Other: Voiding Method Toilet Toilet # Voids 1 06/26/22 00:46 06/26/22 00:46
[2022-06-27 16:57] LABS: Glucose,Whole Blood 257 mg/dL (70-110)
[2022-06-27] MEDS: INSULIN ASPART (NovoLOG) 100 UNIT/ML VIAL SQ SCH ×2 (17:07→21:02)
[2022-06-27 19:53] VITALS: RESP 18
[2022-06-27 20:20] LABS: Glucose,Whole Blood 114 mg/dL (70-110)
[2022-06-27] MEDS: ENOXAPARIN 40 MG/0.4 ML SYRINGE SQ SCH (21:01)
[2022-06-27] MEDS: ATORVASTATIN 20 MG TAB PO SCH (21:01)
[2022-06-27] MEDS: CALCIUM CARBONATE 500 MG CHEWABLE PO PRN (22:24)
[2022-06-28] MEDS: IPRATROPIUM-ALBUTEROL 3 ML NEB INHALATION SCH ×4 (00:45→13:05)
[2022-06-28 06:26] LABS: Glucose,Whole Blood 140 mg/dL (70-110)
[2022-06-28] MEDS: INSULIN ASPART (NovoLOG) 100 UNIT/ML VIAL SQ SCH ×2 (06:28→11:58)
[2022-06-28] MEDS: methylPREDNISolone SOD SUCCI 125 MG/2 ML VIAL IV SCH (08:26)
[2022-06-28] MEDS: amLODIPine 5 MG TAB PO SCH (08:26)
--- NOTE | 2022-06-28 08:54 | US ---
EXAMINATION TYPE: US venous doppler duplex LE BI DATE OF EXAM: 06/28/2022 8:40 AM COMPARISON: 12/01/2021 CLINICAL HISTORY: r/o DVT. dvt SIDE PERFORMED: Bilateral TECHNIQUE: The lower extremity deep venous system is examined utilizing real time linear array sonog marilee with graded compression, doppler sonography and color-flow sonography. VESSELS IMAGED: Common Femoral Vein Deep Femoral Vein Greater Saphenous Vein * Femoral Vein Popliteal Vein Small Saphenous Vein * Proximal Calf Veins (* superficial vessels) Right Leg: Negative for DVT Left Leg: Negative for DVT Grayscale, color doppler, spectral doppler imaging performed of the deep veins of the lower extremiti es. There is normal flow, compressibility, vascular waveforms. IMPRESSION: No evidence of deep vein to most of either lower externally.
[2022-06-28] MEDS: FORMOTEROL FUMARATE 20 MCG/2 ML NEBU INHALATION SCH (09:08)
[2022-06-28] MEDS: BUDESONIDE 1 MG/2 ML NEBU INHALATION SCH (09:08)
[2022-06-28 09:38] VITALS: BP 166/84; TEMP 96.9
[2022-06-28] MEDS: CALCIUM CARBONATE 500 MG CHEWABLE PO PRN (10:34)
[2022-06-28 11:53] LABS: Glucose,Whole Blood 143 mg/dL (70-110)
[2022-06-28 13:18] VITALS: PULSE 112
--- NOTE | 2022-06-28 17:08 | CA ---
Transthoracic Echo Report Name: Pedro Luis Young Age: 86 Gender: M : 1935 Exam Date: 06/28/2022 09:34 Exam Location: [facility] Ht (in): 69 Wt (lb): 140 Ordering Physician: Anthony Hernandez DO ([email or web address]) Attending/Referring Phys: Professor Of Mathematics Thuy Sales RDCS Procedure CPT: Indications: re: LV function Cardiac Hx: Technical Quality: Contrast 1: Total Dose (mL): Contrast 2: Total Dose (mL): MEASUREMENTS (Male / Female) Normal Values 2D ECHO LV Diastolic Diameter PLAX 3.1 cm 4.2 - 5.9 / 3.9 - 5.3 cm LV Systolic Diameter PLAX 2.6 cm IVS Diastolic Thickness 1.2 cm 0.6 - 1.0 / 0.6 - 0.9 cm LVPW Diastolic Thickness 1.3 cm 0.6 - 1.0 / 0.6 - 0.9 cm LV Relative Wall Thickness 0.8 LA Volume 27.1 cm??? 18 - 58 / 22 - 52 cm??? M-MODE Aortic Root Diameter MM 3.5 cm LA Systolic Diameter MM 3.7 cm LA Ao Ratio MM 1.0 AV Cusp Separation MM 2.3 cm DOPPLER AV Peak Velocity 142.8 cm/s AV Peak Gradient 8.2 mmHg AV Mean Velocity 101.4 cm/s AV Mean Gradient 4.8 mmHg AV Velocity Time Integral 23.9 cm LVOT Peak Velocity 121.8 cm/s LVOT Peak Gradient 5.9 mmHg MV Area PHT 5.4 cm??? Mitral E Point Velocity 64.9 cm/s Mitral A Point Velocity 105.7 cm/s Mitral E to A Ratio 0.6 MV Deceleration Time 141.6 ms TR Peak Velocity 191.0 cm/s TR Peak Gradient 14.6 mmHg Right Ventricular Systolic Press 19.6 mmHg FINDINGS Left Ventricle Mildly increased septal wall thickness. No obvious regional wall motion abnormalities. Left ventricular ejection fraction is estimated at 55 %. Right Ventricle Normal right ventricular size and function. Right ventricular systolic pressure within normal limits. Right Atrium Normal right atrial size. Left Atrium Normal left atrial size. Mitral Valve Structurally normal mitral valve. Mild mitral annular calcification. No mitral stenosis. No mitral regurgitation. Aortic Valve No aortic valve stenosis or regurgitation. Aortic valve sclerosis. Tricuspid Valve Structurally normal tricuspid valve. Mild tricuspid regurgitation. Pulmonic Valve Trace pulmonic regurgitation. Pericardium No pericardial effusion. Aorta Normal size aortic root and proximal ascending aorta. CONCLUSIONS Left ventricular ejection fraction 55% Mildly increased septal wall thickness No mitral regurgitation Mild tricuspid regurgitation RVSP 19 Previewed by: Dr. Anthony Hernandez DO (Electronically Signed) Final Date: 28 June 2022 17:07
--- NOTE | 2022-06-28 20:49 | P.DS ---
Providers Date of admission: 06/26/22 16:33 Expected date of discharge: 06/28/22 Attending physician: Maksim Wu Consults: 06/26/22 10:00 Consult Physician Routine Consulting Provider: Gary Billy Consult Reason/Comments: pos troponin Do you want consulting provider notified?: Yes Primary care physician: [facility] Course: Chief Complaint: Short of breath I'm rounding for Dr. Maksim Wu. This is a 86-year-old patient who follows with Dr. Maksim Wu. Chronic stable medical conditions include hypertension, hyperlipidemia, chronic low back pain. Patient's an ex-smoker. Has been progressively getting short of breath for over a year. More so in the last day or so. Became increasingly short of breath wheezing. Meraz sputum. No fever no chills. Appetite is okay. Not able to speak in full sentences. Nobody else around him is sick. Tested positive for RSV in the ER. at the bedside. 06/27/2022: Admitted with severe COPD exacerbation and RSV infection. Feeling better. Appetite is started improved. Less wheezing. Less short of breath. 06/28/2022: Doing much better. Feels about 80% better. Patient's brother and at the bedside. Discussed. Prednisone taper. Symbicort. She'll follow- up with Dr. Wu outpatient. Questions answered. Continue home oxygen. Discussion and discharge planning more than 35 minutes Past medical history to include: COPD, hypertension, low back pain, hyperlipidemia Social history: . Alcohol rarely. Smoked for 50-60 years half a pack a day stopped in 2019. Physical examination: VITAL SIGNS: 96.9, 96, 18, 1 6074, 95% on 2 L GENERAL: Sitting on the edge of the bed, breathing better EYES: Pupils equal. Conjunctiva normal. HEENT: External appearance of nose and ears normal, oral cavity grossly normal. NECK: JVD not raised; masses not palpable. HEART: First and second heart sounds are normal; no edema. LUNGS: Respiratory rate increased, decreased air entry ABDOMEN: Soft, nontender, liver spleen not palpable, no masses palpable. PSYCH: Alert and oriented x3; mood and affect anxiousl. MUSCULOSKELETAL:No Clubbing/cyanosis;muscles-grossly intact, OA INVESTIGATIONS, reviewed in the clinical context: White count 8.9 hemoglobin 11.1 platelets 188 potassium 5.37 creatinine 1.66 Troponin I 0.027, 0.071, 0.087 ProBNP 221 Influenza type A/type B/COVID 19 PCR: Not detected RSV PCR: Detected EKG tracing personally reviewed by me-normal sinus rhythm. Heart rate 119 Chest x-ray film personally reviewed by me-infiltrates. Assessment and plan: -Acute severe COPD exacerbation in an ex-smoker precipitated by RSV infection: Much better DuoNeb 4 times a day, Symbicort 160/4.5 one puff twice a day. Prednisone taper -Troponin leak likely from hemodynamic mismatch. Doubt ACS. Seen by Dr. Hernandez, not for any further intervention. Outpatient follow-up. Telemetry. -Chronic kidney disease, stage III likely nephrosclerosis Follow renal function -Acute RSV infection/pneumonitis: Better -Hyperlipidemia Lipitor -Essential hypertension Norvasc Disposition: Home Plan - Discharge Summary Discharge Rx Participant: No New Discharge Prescriptions: New Ipratropium-Albuterol Nebulize [Duoneb 0.5 mg-3 mg/3 ml Soln] 3 ml INHALATION QID #120 ml Budesonide/Formoterol Fumarate [Symbicort 160-4.5 Mcg Inhaler] 1 puff INHALATION BID #10.2 gm predniSONE 10 mg PO DAILY #30 tab Continue Albuterol Sulfate [Ventolin HFA] 2 puff INHALATION RT-Q4H PRN PRN Reason: Shortness Of Breath Atorvastatin [Lipitor] 20 mg PO HS tab Nitroglycerin Sl Tabs [Nitrostat] 0.4 mg SUBLINGUAL Q5M PRN 100 Days #100 tab PRN Reason: Chest Pain amLODIPine [Norvasc] 5 mg PO DAILY Discharge Medication List Albuterol Sulfate [Ventolin HFA] 2 puff INHALATION RT-Q4H PRN 04/27/20 [History] Atorvastatin [Lipitor] 20 mg PO HS tab 04/27/20 [Rx] amLODIPine [Norvasc] 5 mg PO DAILY 11/30/21 [History] Nitroglycerin Sl Tabs [Nitrostat] 0.4 mg SUBLINGUAL Q5M PRN 100 Days #100 tab 12/02/21 [Rx] Budesonide/Formoterol Fumarate [Symbicort 160-4.5 Mcg Inhaler] 1 puff INHALATION BID #10.2 gm 06/28/22 [Rx] Ipratropium-Albuterol Nebulize [Duoneb 0.5 mg-3 mg/3 ml Soln] 3 ml INHALATION QID #120 ml 06/28/22 [Rx] predniSONE 10 mg PO DAILY #30 tab 06/28/22 [Rx] Follow up Appointment(s)/Referral(s): Anthony Hernandez DO [STAFF PHYSICIAN] - 2 Weeks ([phone] is the direct number to make an appointment.) [facility] [NON-STAFF] - Maksim Wu MD [Primary Care Provider] - 1-2 days Patient Instructions/Handouts: Angina (DC), Respiratory Syncytial Virus (DC) Discharge Disposition: HOME SELF-CARE
[2022-06-28] MEDS ORDERED: ENOXAPARIN 30 MG/0.3 ML SYRINGE SQ SCH (21:00)
--- NOTE | 2022-07-04 08:14 | CDI ---
Documentation Clarification Form Date: 07/04/22 From: Lillian Arias Admit Date: 06/26/2022 04:33:00 PM Patient Name: Pedro Luis Young Visit Number: [id number] Discharge Date: 06/28/2022 02:11:00 PM ATTENTION: The Clinical Documentation Specialists (CDI) and [facility] Coding Staff appreciate your assistance in clarifying documentation. Please respond to the clarification below the line at the bottom and electronically sign. The CDI & [facility] Coding staff will review the response and follow-up if needed. Please note: Queries are made part of the Legal Health Record. If you have any questions, please contact the author of this message via ITS. Dr. Michael Mills, Conflicting documentation has been found in the medical record. As attending physician, please provide clarification. Per Dr. Hernandez's consult "Non-STEMI, likely type II mechanism related to COPD exacerbation, RSV infection. No angina-type symptoms" Per your PN and DS "Troponin leak likely from hemodynamic mismatch. Doubt ACS." History/Risk Factors: RSV pneumonia, COPD w lower respiratory infection and acute exacerbation, HTN w Stage 3 CKD, HLD, dependence on oxygen at home, chronic low back pain, anxiety Clinical Indicators: Troponin I: 0.027, 0.071, 0.087 Treatment: check 2-D echo, may consider outpatient stress testing Please clarify which diagnosis is most appropriate: [ ] Type II AR [ ] Non-ischemic myocardial injury [ ] Demand ischemia, other unspecified [ ] Elevated Troponin [ ] Other (please specify) [ ] Unable to determine Type II AR MTDD
--- NOTE | 2022-07-04 08:29 | CDI ---
Documentation Clarification Form Date: 07/04/22 From: Lillian Arias Admit Date: 06/26/2022 04:33:00 PM Patient Name: Pedro Luis Young Visit Number: [id number] Discharge Date: 06/28/2022 02:11:00 PM ATTENTION: The Clinical Documentation Specialists (CDI) and [facility] Coding Staff appreciate your assistance in clarifying documentation. Please respond to the clarification below the line at the bottom and electronically sign. The CDI & [facility] Coding staff will review the response and follow-up if needed. Please note: Queries are made part of the Legal Health Record. If you have any questions, please contact the author of this message via ITS. Dr. Michael Mills, Your patient has documentation of using home oxygen on 3 L nasal cannula. Based on this information and the findings below, is there an additional diagnosis that is clinically appropriate for this patient? Patient history/risk factors:RSV pneumonia, COPD w lower respiratory infection and acute exacerbation, HTN w Stage 3 CKD, HLD, dependence on oxygen at home, chronic low back pain, anxiety Clinical Indicators: Presents with worsening shortness of breath throughout the day, despite using home oxygen and nebulized treatments. Under treatment for RSV pneumonia and COPD w lower respiratory infection and acute exacerbation. Treatment: Received 2 L NC in ED on 06/25, 06/26 & 06/27. Oxygen changed to 3L NC on 06/28. Albuterol Sulfate nebulizer, Duoneb, Pulmicort, Perforomist, IV Solu-Medrol. Is there an additional diagnosis that is clinically appropriate for this patient? [ ] Chronic hypoxic respiratory failure [ ] Chronic hypercapnia respiratory failure [ ] Other, please specify [ ] Unable to determine Chronic hypoxic respiratory failure MTDD
== END 2022-06-28 14:11 | disposition home health service (06) | DRG 193 ==
LOC: EC 21:56 → 6NMEDSUR 06-26 00:07 → 3SCARD 06-26 05:23 → OBSVTOIN 06-26 16:33
PROVIDERS: ADMIT Family Medicine; ATTEND Family Medicine
DX: J12.1 Respiratory syncytial virus pneumonia (principal); I21.A1 Myocardial infarction type 2; J96.11 Chronic respiratory failure with hypoxia; J44.0 Chronic obstructive pulmonary disease with (acute) lower respiratory infection; J44.1 Chronic obstructive pulmonary disease with (acute) exacerbation; I12.9 Hypertensive chronic kidney disease with stage 1 through stage 4 chronic kidney disease, or unspecified chronic kidney disease; N18.30 Chronic kidney disease, stage 3 unspecified; Z20.822 Contact with and (suspected) exposure to COVID-19; E78.5 Hyperlipidemia, unspecified; Z99.81 Dependence on supplemental oxygen; G89.29 Other chronic pain; M54.50 Low back pain, unspecified; F41.9 Anxiety disorder, unspecified; G47.00 Insomnia, unspecified; K59.00 Constipation, unspecified; M19.90 Unspecified osteoarthritis, unspecified site; Z79.51 Long term (current) use of inhaled steroids; Z79.899 Other long term (current) drug therapy; Z87.891 Personal history of nicotine dependence; Z88.0 Allergy status to penicillin
CPT/HCPCS: 36415; 71046; 78580; 80048; 80053; 83605; 83880; 84484; 85025; 85379; 85610; 85730; 87040; 87636; 93005; 93306; 93970; 94640; 94760; 96361; 96372; 96374; 96376; 99285

== ENCOUNTER 2023-04-06 21:24 | Emergency (ER) | payer MEDICARE ==
[2023-04-06 21:31] VITALS: TEMP 98.7
--- NOTE | 2023-04-06 22:02 | XR ---
EXAMINATION TYPE: XR chest 2V DATE OF EXAM: 04/06/2023 9:59 PM COMPARISON: Chest radiographs from 06/25/2022 TECHNIQUE: XR chest 2V Frontal and lateral views of the chest. CLINICAL INDICATION:Male, 87 years old with history of CP; FINDINGS: Lungs/Pleura: There is flattening of the diaphragm with increased lucency of the lungs. No evidence o f pneumothorax, pleural effusion or focal consolidation. Pulmonary vascularity: Unremarkable. Heart/mediastinum: Cardiomediastinal silhouette is unremarkable. Musculoskeletal: No acute osseous pathology. IMPRESSION: 1. No acute cardiopulmonary disease process. 2. COPD changes.
[2023-04-06 22:07] LABS: Basophils % (A) 0 %; Eosinophils # (A) 0.1 k/uL (0-0.7); Eosinophils % (A) 1 %; HGB 10.8 gm/dL (13.0-17.5); Lymphocytes # (A) 0.7 k/uL (1.0-4.8); Lymphocytes % (A) 9 %; MCH 29.4 pg (25.0-35.0); MCHC 32.8 g/dL (31.0-37.0); MCV 89.5 fL (80.0-100.0); Mean Platelet Volume 7.7; Monocytes # (A) 0.2 k/uL (0-1.0); Monocytes % (A) 2 %; Neutrophils # (A) 6.5 k/uL (1.3-7.7); Neutrophils % (A) 88 %; Platelet Count 295 k/uL (150-450); RBC 3.69 m/uL (4.30-5.90); RDW 15.6 % (11.5-15.5); WBC 7.4 k/uL (3.8-10.6)
[2023-04-06 22:10] LABS: Appearance,Urine Clear (Clear); Bilirubin,Urine Negative (Negative); Blood,Urine Negative (Negative); Color,Urine Light Yellow; Glucose,Urine (UA) Negative (Negative); Ketones,Urine Negative (Negative); Leukocyte Esterase,Urine Negative (Negative); Nitrite,Urine Negative (Negative); PH, Urine 5.5 (5.0-8.0); Protein,Urine Negative (Negative); Specific Gravity,Urine 1.017 (1.001-1.035); Urobilinogen,Urine <2.0 mg/dL (<2.0)
[2023-04-06 22:17] LABS: INR 0.9 (<1.2); Prothrombin Time 9.8 sec (9.0-12.0)
[2023-04-06 22:20] LABS: ALT 21 U/L (4-49); AST 32 U/L (17-59); African American GFR (CKD) 29 (>60 ml/min/1.73 sqM); Albumin 4.4 g/dL (3.5-5.0); Alkaline Phosphatase 72 U/L (38-126); Anion Gap 9 mmol/L; Blood Urea Nitrogen 56 mg/dL (9-20); Calcium 9.6 mg/dL (8.4-10.2); Carbon Dioxide 27 mmol/L (22-30); Chloride 103 mmol/L (98-107); Glucose 156 mg/dL (74-99); Lipase 172 U/L (23-300); Non-African American GFR(CKD) 25 (>60 ml/min/1.73 sqM); Potassium 5.5 mmol/L (3.5-5.1); Sodium 139 mmol/L (137-145); Total Bilirubin 0.4 mg/dL (0.2-1.3); Total Protein 7.8 g/dL (6.3-8.2)
[2023-04-06 22:27] LABS: Partial Thromboplastin Time 18.8 sec (22.0-30.0)
[2023-04-06 22:29] LABS: NT-Pro-B-Type Natriuretic Pept 1200 pg/mL
--- NOTE | 2023-04-06 23:34 | ED ---
General Adult HPI - General Chief complaint: Shortness of Breath Stated complaint: sob, fever Time Seen by Provider: 04/06/23 21:38 Source: patient, family Mode of arrival: wheelchair Limitations: no limitations - History of Present Illness Initial comments: This is a 87-year-old male with a past medical history including hypertension, COPD and chronic kidney disease presents the emergency department for shortness of breath and chest congestion. The patient stated that over the last 1 week he experienced these symptoms and worsened cough today. The patient denied any nausea or vomiting but did report that he test himself or COVID-19 at home on was negative. The patient came into to continue to suppress however on my evaluation the patient was resting in bed comfortably and stated that his symptoms had improved. The patient denied any fevers, chills as well as any nausea and vomiting. The patient denied any other acute complaints at this time. - Related Data Home Medications Medication Instructions Recorded Confirmed Albuterol Sulfate [Ventolin HFA] 2 puff INHALATION RT-Q4H PRN 04/27/20 06/26/22 amLODIPine [Norvasc] 5 mg PO DAILY 11/30/21 06/26/22 Previous Rx's Medication Instructions Recorded Atorvastatin [Lipitor] 20 mg PO HS tab 04/27/20 Nitroglycerin Sl Tabs [Nitrostat] 0.4 mg SUBLINGUAL Q5M PRN 100 Days 12/02/21 #100 tab Budesonide/Formoterol Fumarate 1 puff INHALATION BID #10.2 gm 06/28/22 [Symbicort 160-4.5 Mcg Inhaler] Ipratropium-Albuterol Nebulize 3 ml INHALATION QID #120 ml 06/28/22 [Duoneb 0.5 mg-3 mg/3 ml Soln] predniSONE 10 mg PO DAILY #30 tab 06/28/22 Allergies Allergy/AdvReac Type Severity Reaction Status Date / Time Penicillins Allergy Unknown Verified 04/06/23 21:30 Childhood Review of Systems ROS Statement: Those systems with pertinent positive or pertinent negative responses have been documented in the HPI. ROS Other: All systems not noted in ROS Statement are negative. Past Medical History Past Medical History: COPD, Pneumonia Additional Past Medical History / Comment(s): HX C-DIFF (2011), BACK PAIN History of Any Multi-Drug Resistant Organisms: None Reported Date of last positivie culture/infection: 2011/C-Diff MDRO Source:: stool Past Surgical History: Hernia Repair Past Anesthesia/Blood Transfusion Reactions: No Reported Reaction Past Psychological History: No Psychological Hx Reported Smoking Status: Former smoker Past Alcohol Use History: Rare Past Drug Use History: None Reported - Past Family History Sister(s) Family Medical History: Cancer Additional Family Medical History / Comment(s): pancreatic Brother(s) Family Medical History: Cancer General Exam Limitations: no limitations General appearance: alert, in no apparent distress Head exam: Present: atraumatic, normocephalic, normal inspection Eye exam: Present: normal appearance, PERRL Pupils: Present: normal accommodation ENT exam: Present: normal exam, normal oropharynx, mucous membranes moist Neck exam: Present: normal inspection, full ROM Respiratory exam: Present: normal lung sounds bilaterally. Absent: respiratory distress, wheezes Cardiovascular Exam: Present: regular rate, normal rhythm, normal heart sounds GI/Abdominal exam: Present: soft, normal bowel sounds Extremities exam: Present: normal inspection, full ROM Back exam: Present: normal inspection, full ROM Neurological exam: Present: alert, oriented X3, CN II-XII intact Psychiatric exam: Present: normal affect, normal mood Skin exam: Present: warm, dry Course Vital Signs 04/06/23 04/06/23 21:27 23:40 Temperature 98.7 F Pulse Rate 99 87 Respiratory 22 18 Rate Blood Pressure 162/86 128/91 O2 Sat by Pulse 96 99 Oximetry EKG Findings - EKG Comments: EKG Findings:: An EKG was obtained and was interpreted by myself showing a rate of 85, MO interval of 180, QR caodaism 94 and QTC of 389. This EKG showed a normal sinus rhythm with no ST segment elevation or depression noted. Medical Decision Making - Medical Decision Making Was pt. sent in by a medical professional or institution (, PA, CAR SALESPERSON, urgent care, hospital, or usp...) When possible be specific @ -No Did you speak to anyone other than the patient for history (EMS, parent, family, police, friend...)? What history was obtained from this source @ -No Did you review nursing and triage notes (agree or disagree)? Why? @ -I reviewed and agree with nursing and triage notes Were old charts reviewed (outside hosp., previous admission, EMS record, old EKG, old radiological studies, urgent care reports/EKG's, usp records)? Report findings @ -No old charts were reviewed Differential Diagnosis (chest pain, altered mental status, abdominal pain women, abdominal pain men, vaginal bleeding, weakness, fever, dyspnea, syncope, headache, dizziness, GI bleed, back pain, seizure, CVA, palpatations, mental health)? @ -ACS, pneumonia, pneumothorax, upper respiratory infection, COPD exacerbation EKG interpreted by me (3pts min.). @ -As above X-rays interpreted by me (1pt min.). @ -Chest x-ray was obtained and was interpreted by myself showing no acute process however there were COPD changes noted. CT interpreted by me (1pt min.). @ -None done U/S interpreted by me (1pt. min.). @ -None done What testing was considered but not performed or refused? (CT, X-rays, U/S, labs)? Why? @ -None What meds were considered but not given or refused? Why? @ -None Did you discuss the management of the patient with other professionals (prof alanas i.e. , PA, CAR SALESPERSON, lab, RT, psych nurse, social media editor, telephone operator receptionist, teacher, ecological technical officer, nurse case management)? Give summary @ -No Was smoking cessation discussed for >3mins.? @ -No Was critical care preformed (if so, how long)? @ -No Were there social determinants of health that impacted care today? How? (Homelessness, low income, unemployed, alcoholism, drug addiction, transportat ion, low edu. Level, literacy, decrease access to med. care, [facility], rehab)? @ -No Was there de-escalation of care discussed even if they declined (Discuss DNR or withdrawal of care, Hospice)? DNR status @ -No What co-morbidities impacted this encounter? (DM, HTN, Smoking, COPD, CAD, Cancer, CVA, ARF, Chemo, Hep., AIDS, mental health diagnosis, sleep apnea, morbid obesity)? @ -Hypertension, COPD Was patient admitted / discharged? Hospital course, mention meds given and route, prescriptions, significant lab abnormalities, going to OR and other pertinent info. @ -The patient was seen and evaluated emergency department. On physical exam, the patient was resting in bed without any acute complaints and denied any shortness of breath. Vital signs admission were stable. Abdomen workup was obtained as was a chest x-ray and EKG. Laboratory workup was significant for a potassium of 5.5 but the patient did have a baseline elevated potassium level. The patient denied any chest pain, shortness of breath or any EKG changes at this time. The patient's creatinine was also elevated at 2.23 consistent with the history of chronic kidney disease. The patient was however found to be COVID-19 positive. The patient was told of these results and stated that he den ied any current symptoms therefore was not treated for COVID-19 nor for his slightly elevated potassium. The patient was advised to continue to hydrate at home and to follow-up with his family care physician and global director air and climate change for further workup and evaluation. The patient and his are agreeable to this and all depressions were answered. He was also advised report back to the emergency department. Worsening shortness breath or difficulty in breathing. The patient was discharged home in stable condition. Undiagnosed new problem with uncertain prognosis? @ -No Drug Therapy requiring intensive monitoring for toxicity (Heparin, Nitro, Insulin, Cardizem)? @ -No Were any procedures done? @ -No Diagnosis/symptom? @ -COVID-19, hyperkalemia, CKD Acute, or Chronic, or Acute on Chronic? @ -Acute on chronic Uncomplicated (without systemic symptoms) or Complicated (systemic symptoms)? @ -Uncomplicated Side effects of treatment? @ -No Exacerbation, Progression, or Severe Exacerbation? @ -No Poses a threat to life or bodily function? How? (Chest pain, [place], [place], pneumonia, PE, COPD, DKA, ARF, appy, cholecystitis, CVA, Diverticulitis, Homicidal, Suicidal, threat to staff... and all critical care pts) @ -No - Lab Data Result diagrams: 04/06/23 21:44 04/06/23 21:44 Lab Results 04/06/23 04/06/23 04/06/23 Range/Units 21:44 21:44 21:44 WBC 7.4 (3.8-10.6) k/uL RBC 3.69 L (4.30-5.90) m/uL Hgb 10.8 L (13.0-17.5) gm/dL Hct 33.0 L (39.0-53.0) % MCV 89.5 (80.0-100.0) fL MCH 29.4 (25.0-35.0) pg MCHC 32.8 (31.0-37.0) g/dL RDW 15.6 H (11.5-15.5) % Plt Count 295 (150-450) k/uL MPV 7.7 Neutrophils % 88 % Lymphocytes % 9 % Monocytes % 2 % Eosinophils % 1 % Basophils % 0 % Neutrophils # 6.5 (1.3-7.7) k/uL Lymphocytes # 0.7 L (1.0-4.8) k/uL Monocytes # 0.2 (0-1.0) k/uL Eosinophils # 0.1 (0-0.7) k/uL Basophils # 0.0 (0-0.2) k/uL PT 9.8 (9.0-12.0) sec INR 0.9 (<1.2) APTT 18.8 L (22.0-30.0) sec Sodium (137-145) mmol/L Potassium (3.5-5.1) mmol/L Chloride (98-107) mmol/L Carbon Dioxide (22-30) mmol/L Anion Gap mmol/L BUN (9-20) mg/dL Creatinine (0.66-1.25) mg/dL Est GFR (CKD-EPI)AfAm (>60 ml/min/1.73 sqM) Est GFR (CKD-EPI)NonAf (>60 ml/min/1.73 sqM) Glucose (74-99) mg/dL Calcium (8.4-10.2) mg/dL Magnesium (1.6-2.3) mg/dL Total Bilirubin (0.2-1.3) mg/dL AST (17-59) U/L ALT (4-49) U/L Alkaline Phosphatase (38-126) U/L Troponin I (0.000-0.034) ng/mL NT-Pro-B Natriuret Pep pg/mL Total Protein (6.3-8.2) g/dL Albumin (3.5-5.0) g/dL Lipase (23-300) U/L Urine Color Light Yellow Urine Appearance Clear (Clear) Urine pH 5.5 (5.0-8.0) Ur Specific [place] 1.017 (1.001-1.035) Urine Protein Negative (Negative) Urine Glucose (UA) Negative (Negative) Urine Ketones Negative (Negative) Urine Blood Negative (Negative) Urine Nitrite Negative (Negative) Urine Bilirubin Negative (Negative) Urine Urobilinogen <2.0 (<2.0) mg/dL Ur Leukocyte Esterase Negative (Negative) Influenza Type A (PCR) (Not Detectd) Influenza Type B (PCR) (Not Detectd) RSV (PCR) (Not Detectd) SARS-CoV-2 (PCR) (Not Detectd) 04/06/23 04/06/23 04/06/23 Range/Units 21:44 21:44 21:44 WBC (3.8-10.6) k/uL RBC (4.30-5.90) m/uL Hgb (13.0-17.5) gm/dL Hct (39.0-53.0) % MCV (80.0-100.0) fL MCH (25.0-35.0) pg MCHC (31.0-37.0) g/dL RDW (11.5-15.5) % Plt Count (150-450) k/uL MPV Neutrophils % % Lymphocytes % % Monocytes % % Eosinophils % % Basophils % % Neutrophils # (1.3-7.7) k/uL Lymphocytes # (1.0-4.8) k/uL Monocytes # (0-1.0) k/uL Eosinophils # (0-0.7) k/uL Basophils # (0-0.2) k/uL PT (9.0-12.0) sec INR (<1.2) APTT (22.0-30.0) sec Sodium 139 (137-145) mmol/L Potassium 5.5 H (3.5-5.1) mmol/L Chloride 103 (98-107) mmol/L Carbon Dioxide 27 (22-30) mmol/L Anion Gap 9 mmol/L BUN 56 H (9-20) mg/dL Creatinine 2.23 H (0.66-1.25) mg/dL Est GFR (CKD-EPI)AfAm 29 (>60 ml/min/1.73 sqM) Est GFR (CKD-EPI)NonAf 25 (>60 ml/min/1.73 sqM) Glucose 156 H (74-99) mg/dL Calcium 9.6 (8.4-10.2) mg/dL Magnesium 2.0 (1.6-2.3) mg/dL Total Bilirubin 0.4 (0.2-1.3) mg/dL AST 32 (17-59) U/L ALT 21 (4-49) U/L Alkaline Phosphatase 72 (38-126) U/L Troponin I 0.014 (0.000-0.034) ng/mL NT-Pro-B Natriuret Pep 1200 pg/mL Total Protein 7.8 (6.3-8.2) g/dL Albumin 4.4 (3.5-5.0) g/dL Lipase 172 (23-300) U/L Urine Color Urine Appearance (Clear) Urine pH (5.0-8.0) Ur Specific [place] (1.001-1.035) Urine Protein (Negative) Urine Glucose (UA) (Negative) Urine Ketones (Negative) Urine Blood (Negative) Urine Nitrite (Negative) Urine Bilirubin (Negative) Urine Urobilinogen (<2.0) mg/dL Ur Leukocyte Esterase (Negative) Influenza Type A (PCR) Not Detected (Not Detectd) Influenza Type B (PCR) Not Detected (Not Detectd) RSV (PCR) Not Detected (Not Detectd) SARS-CoV-2 (PCR) Detected A (Not Detectd) Disposition Clinical Impression: COVID-19, CKD (chronic kidney disease), Hyperkalemia Disposition: HOME SELF-CARE Condition: Stable Instructions (If sedation given, give patient instructions): Chronic Kidney Disease Diet (DC), COVID-19 (Coronavirus Disease 2019) (ED) Is patient prescribed a controlled substance at d/c from ED?: No Referrals: Maksim Wu MD [Primary Care Provider] - 1-2 days Time of Disposition: 23:00
[2023-04-06 23:46] VITALS: BP 128/91; PULSE 87; RESP 18
== END 2023-04-06 23:46 | disposition home or self-care (01) ==
LOC: EC 21:24
DX: U07.1 COVID-19 (principal); I12.9 Hypertensive chronic kidney disease with stage 1 through stage 4 chronic kidney disease, or unspecified chronic kidney disease; N18.9 Chronic kidney disease, unspecified; E87.5 Hyperkalemia; J44.9 Chronic obstructive pulmonary disease, unspecified; Z87.891 Personal history of nicotine dependence; Z79.899 Other long term (current) drug therapy; Z88.0 Allergy status to penicillin
CPT/HCPCS: 36415; 71046; 80053; 81003; 83690; 83735; 83880; 84484; 85025; 85610; 85730; 87636; 93005; 99285

== ENCOUNTER 2023-04-13 21:09 | Inpatient (IN) | payer MEDICARE ==
[2023-04-13] MEDS ORDERED: methylPREDNISolone SOD SUCCI 125 MG/2 ML VIAL IV STA (21:32)
[2023-04-13] MEDS ORDERED: MAGNESIUM SULFATE-D5W PMX 1 GM in DEXTROSE/WATER 1 100ML.BAG IVPB STA (21:32)
[2023-04-13] MEDS ORDERED: ACETAMINOPHEN TAB 500 MG TAB PO STA (21:34)
[2023-04-13 22:00] LABS: INR 0.9 (<1.2); Partial Thromboplastin Time 23.2 sec (22.0-30.0); Prothrombin Time 9.4 sec (9.0-12.0)
[2023-04-13 22:18] LABS: ALT 20 U/L (4-49); AST 30 U/L (17-59); African American GFR (CKD) 32 (>60 ml/min/1.73 sqM); Albumin 3.9 g/dL (3.5-5.0); Alkaline Phosphatase 100 U/L (38-126); Anion Gap 8 mmol/L; Blood Urea Nitrogen 45 mg/dL (9-20); Calcium 8.8 mg/dL (8.4-10.2); Carbon Dioxide 20 mmol/L (22-30); Chloride 110 mmol/L (98-107); Glucose 93 mg/dL (74-99); Non-African American GFR(CKD) 28 (>60 ml/min/1.73 sqM); Potassium 5.2 mmol/L (3.5-5.1); Sodium 138 mmol/L (137-145); Total Bilirubin 0.6 mg/dL (0.2-1.3)
[2023-04-13 22:20] LABS: Basophils % (A) 0 %; Eosinophils # (A) 0.2 k/uL (0-0.7); Eosinophils % (A) 2 %; HGB 11.3 gm/dL (13.0-17.5); Lymphocytes # (A) 1.2 k/uL (1.0-4.8); Lymphocytes % (A) 9 %; MCH 29.1 pg (25.0-35.0); MCHC 31.6 g/dL (31.0-37.0); MCV 92.1 fL (80.0-100.0); Mean Platelet Volume 7.4; Monocytes # (A) 0.7 k/uL (0-1.0); Monocytes % (A) 5 %; Neutrophils # (A) 11.9 k/uL (1.3-7.7); Neutrophils % (A) 84 %; Platelet Count 264 k/uL (150-450); RDW 15.1 % (11.5-15.5); WBC 14.3 k/uL (3.8-10.6)
[2023-04-13 22:27] LABS: NT-Pro-B-Type Natriuretic Pept 811 pg/mL
--- NOTE | 2023-04-13 22:49 | ED ---
SOB HPI - General Chief Complaint: Shortness of Breath Stated Complaint: Difficulty Breathing Time Seen by Provider: 04/13/23 21:15 Source: patient Mode of arrival: EMS Limitations: no limitations - History of Present Illness Initial Comments: 87-year-old male with past medical history of COPD presents emergency room reporting shortness of breath. Patient was seen in the emergency room on the third of this month. He was diagnosed with Covid. Chest x-ray is normal and the patient was discharged home. States that he has been subsequently been gett ing worse. States he can include across room without getting short of breath and puffing on his inhaler. He denies any chest pain. Unsure of fevers. No nausea or vomiting. Denies diarrhea. He is not using any medications other than his inhaler for symptoms. States that he does have oxygen at home however he never wears it. He denies any lower extremity swelling. History of DVT or PE. No other alleviating, precipitating or modifying factors - Related Data Home Medications Medication Instructions Recorded Confirmed amLODIPine [Norvasc] 5 mg PO DAILY 11/30/21 04/14/23 Budesonide/Formoterol Fumarate 2 puff INHALATION RT-BID 04/14/23 04/14/23 [Symbicort 160-4.5 Mcg Inhaler] Previous Rx's Medication Instructions Recorded Atorvastatin [Lipitor] 20 mg PO HS tab 04/27/20 Nitroglycerin Sl Tabs [Nitrostat] 0.4 mg SUBLINGUAL Q5M PRN 100 Days 12/02/21 #100 tab Allergies Allergy/AdvReac Type Severity Reaction Status Date / Time Penicillins Allergy Unknown Verified 04/14/23 08:05 Childhood Review of Systems ROS Statement: Those systems with pertinent positive or pertinent negative responses have been documented in the HPI. ROS Other: All systems not noted in ROS Statement are negative. Past Medical History Past Medical History: COPD, Pneumonia Additional Past Medical History / Comment(s): HX C-DIFF (2011), BACK PAIN History of Any Multi-Drug Resistant Organisms: C-DIFF Date of last positivie culture/infection: 2011/C-Diff MDRO Source:: stool Past Surgical History: Hernia Repair Past Anesthesia/Blood Transfusion Reactions: No Reported Reaction Past Psychological History: No Psychological Hx Reported Smoking Status: Former smoker Past Alcohol Use History: Rare Past Drug Use History: None Reported - Past Family History Sister(s) Family Medical History: Cancer Additional Family Medical History / Comment(s): pancreatic Brother(s) Family Medical History: Cancer General Exam Limitations: no limitations General appearance: alert, in no apparent distress Head exam: Present: atraumatic, normocephalic, normal inspection Eye exam: Present: normal appearance, PERRL, EOMI. Absent: scleral icterus, conjunctival injection, periorbital swelling ENT exam: Present: normal exam, mucous membranes moist Neck exam: Present: normal inspection. Absent: tenderness, meningismus, lymphadenopathy Respiratory exam: Present: rales, accessory muscle use, decreased breath sounds. Absent: respiratory distress, wheezes, rhonchi, stridor Cardiovascular Exam: Present: regular rate, normal rhythm, normal heart sounds. Absent: systolic murmur, diastolic murmur, rubs, gallop, clicks GI/Abdominal exam: Present: soft, normal bowel sounds. Absent: distended, tenderness, guarding, rebound, rigid Extremities exam: Present: normal inspection, full ROM, normal capillary refill. Absent: tenderness, pedal edema, joint swelling, calf tenderness Back exam: Present: normal inspection Neurological exam: Present: alert, oriented X3, CN II-XII intact Psychiatric exam: Present: normal affect, normal mood Skin exam: Present: warm, dry, intact, normal color. Absent: rash Course Vital Signs 04/13/23 04/13/23 04/13/23 21:11 21:30 22:26 Temperature 100.1 F H 99.2 F Pulse Rate 131 H Respiratory 26 H 28 H Rate Blood Pressure 184/107 O2 Sat by Pulse 96 Oximetry 04/13/23 04/14/23 04/14/23 23:11 01:03 03:42 Temperature Pulse Rate 105 H 95 78 Respiratory 20 18 18 Rate Blood Pressure 143/86 150/87 O2 Sat by Pulse 92 L 95 95 Oximetry 04/14/23 04/14/23 04/14/23 07:41 09:00 10:00 Temperature 97.9 F Pulse Rate 95 69 77 Respiratory 18 18 18 Rate Blood Pressure 136/94 O2 Sat by Pulse 97 98 99 Oximetry Medical Decision Making - Medical Decision Making Was pt. sent in by a medical professional or institution (, PA, TECHNICAL SUPPORT REPRESENTATIVE, urgent care, hospital, or [facility]...) When possible be specific @ -No Did you speak to anyone other than the patient for history (EMS, parent, family, police, friend...)? What history was obtained from this source @ -I spoke with EMS and regards the patient's symptoms Did you review nursing and triage notes (agree or disagree)? Why? @ -I reviewed and agree with nursing and triage notes Were old charts reviewed (outside hosp., previous admission, EMS record, old EKG, old radiological studies, urgent care reports/EKG's, [facility] records)? Report findings @ -I reviewed the patient's ER visit from April 06 where he had a chest x- ray performed. This is compared to today's chest x-ray Differential Diagnosis (chest pain, altered mental status, abdominal pain women, abdominal pain men, vaginal bleeding, weakness, fever, dyspnea, syncope, headache, dizziness, GI bleed, back pain, seizure, CVA, palpatations, mental health, musculoskeletal)? @ -Differential Dyspnea: Coronary syndrome, arrhythmia, tamponade, asthma, COPD, pulmonary embolism, pneumonia, pneumothorax, pulmonary effusion, anaphylaxis, diabetic ketoacidosis, flailed chest, pulmonary contusion, diaphragmatic rupture, anemia, neuromuscular, this is not meant to be an all-inclusive list. EKG interpreted by me (3pts min.). @ -Yes and demonstrates sinus tachycardia with a rate of 123. IA interval 164. QRS 94. QTC of 347. No acute ST segment elevations. Mild ST depression V4 through V6 X-rays interpreted by me (1pt min.). @ -Yes and demonstrates infiltrate left lower lobe CT interpreted by me (1pt min.). @ -None done U/S interpreted by me (1pt. min.). @ -None done What testing was considered but not performed or refused? (CT, X-rays, U/S, labs)? Why? @ -None What meds were considered but not given or refused? Why? @ -None Did you discuss the management of the patient with other professionals (professionals i.e. , PA, TECHNICAL SUPPORT REPRESENTATIVE, lab, RT, psych nurse, social science research assistant, hotbed operator, teacher, probation and parole officer, director of casework services)? Give summary @ -Spoke with Dr. Castrejon who will admit patient Was smoking cessation discussed for >3mins.? @ -No Was critical care preformed (if so, how long)? @ -No Were there social determinants of health that impacted care today? How? (Homelessness, low income, unemployed, alcoholism, drug addiction, transportation, low edu. Level, literacy, decrease access to med. care, intermediate, rehab)? @ -No Was there de-escalation of care discussed even if they declined (Discuss DNR or withdrawal of care, Hospice)? DNR status @ -No What co-morbidities impacted this encounter? (DM, HTN, Smoking, COPD, CAD, Ca ncer, CVA, ARF, Chemo, Hep., AIDS, mental health diagnosis, sleep apnea, morbid obesity)? @ -COPD Was patient admitted / discharged? Hospital course, mention meds given and route, prescriptions, significant lab abnormalities, going to OR and other pertinent info. @ -Upon arrival, the patient was placed into room 6. There are history and ph ysical transfer form. Patient does have increased worker breathing. I did order an albuterol inhaler. IV was established. He was given 125 Solu-Medrol and a gram of magnesium. Laboratory studies were conducted. Patient is swabbed for Covid which continues to be positive. Chest x-ray demonstrates developing infiltrates. Recommend admission. Patient is agreeable to this. He is empirically covered with antibiotics. Patient awaiting a bed on the floor in stable condition Undiagnosed new problem with uncertain prognosis? @ -Yes Drug Therapy requiring intensive monitoring for toxicity (Heparin, Nitro, Insulin, Cardizem)? @ -No Were any procedures done? @ -No Diagnosis/symptom? @ -Acute respiratory insufficiency, acute Covid infection, acute exacerbation of COPD Acute, or Chronic, or Acute on Chronic? @ -see above Uncomplicated (without systemic symptoms) or Complicated (systemic symptoms)? @ -complicated Side effects of treatment? @ -No Exacerbation, Progression, or Severe Exacerbation? @ -yes Poses a threat to life or bodily function? How? (Chest pain, [place], [place], pneumonia, PE, COPD, DKA, ARF, appy, cholecystitis, CVA, Diverticulitis, Homicidal, Suicidal, threat to staff... and all critical care pts) @ -No - Lab Data Result diagrams: 04/14/23 06:42 04/14/23 06:42 Lab Results 04/13/23 04/13/23 04/13/23 Range/Units 21:25 21:25 21:25 WBC 14.3 H (3.8-10.6) k/uL RBC 3.90 L (4.30-5.90) m/uL Hgb 11.3 L (13.0-17.5) gm/dL Hct 36.0 L (39.0-53.0) % MCV 92.1 (80.0-100.0) fL MCH 29.1 (25.0-35.0) pg MCHC 31.6 (31.0-37.0) g/dL RDW 15.1 (11.5-15.5) % Plt Count 264 (150-450) k/uL MPV 7.4 Neutrophils % 84 % Lymphocytes % 9 % Monocytes % 5 % Eosinophils % 2 % Basophils % 0 % Neutrophils # 11.9 H (1.3-7.7) k/uL Lymphocytes # 1.2 (1.0-4.8) k/uL Monocytes # 0.7 (0-1.0) k/uL Eosinophils # 0.2 (0-0.7) k/uL Basophils # 0.0 (0-0.2) k/uL PT 9.4 (9.0-12.0) sec INR 0.9 (<1.2) APTT 23.2 (22.0-30.0) sec Sodium 138 (137-145) mmol/L Potassium 5.2 H (3.5-5.1) mmol/L Chloride 110 H (98-107) mmol/L Carbon Dioxide 20 L (22-30) mmol/L Anion Gap 8 mmol/L BUN 45 H (9-20) mg/dL Creatinine 2.06 H (0.66-1.25) mg/dL Est GFR (CKD-EPI)AfAm 32 (>60 ml/min/1.73 sqM) Est GFR (CKD-EPI)NonAf 28 (>60 ml/min/1.73 sqM) Glucose 93 (74-99) mg/dL Plasma Lactic Acid Albaro (0.7-2.0) mmol/L Calcium 8.8 (8.4-10.2) mg/dL Total Bilirubin 0.6 (0.2-1.3) mg/dL AST 30 (17-59) U/L ALT 20 (4-49) U/L Alkaline Phosphatase 100 (38-126) U/L Troponin I (0.000-0.034) ng/mL NT-Pro-B Natriuret Pep 811 pg/mL Total Protein 7.0 (6.3-8.2) g/dL Albumin 3.9 (3.5-5.0) g/dL Influenza Type A (PCR) (Not Detectd) Influenza Type B (PCR) (Not Detectd) RSV (PCR) (Not Detectd) SARS-CoV-2 (PCR) (Not Detectd) 04/13/23 04/13/23 04/13/23 Range/Units 21:25 21:25 21:25 WBC (3.8-10.6) k/uL RBC (4.30-5.90) m/uL Hgb (13.0-17.5) gm/dL Hct (39.0-53.0) % MCV (80.0-100.0) fL MCH (25.0-35.0) pg MCHC (31.0-37.0) g/dL RDW (11.5-15.5) % Plt Count (150-450) k/uL MPV Neutrophils % % Lymphocytes % % Monocytes % % Eosinophils % % Basophils % % Neutrophils # (1.3-7.7) k/uL Lymphocytes # (1.0-4.8) k/uL Monocytes # (0-1.0) k/uL Eosinophils # (0-0.7) k/uL Basophils # (0-0.2) k/uL PT (9.0-12.0) sec INR (<1.2) APTT (22.0-30.0) sec Sodium (137-145) mmol/L Potassium (3.5-5.1) mmol/L Chloride (98-107) mmol/L Carbon Dioxide (22-30) mmol/L Anion Gap mmol/L BUN (9-20) mg/dL Creatinine (0.66-1.25) mg/dL Est GFR (CKD-EPI)AfAm (>60 ml/min/1.73 sqM) Est GFR (CKD-EPI)NonAf (>60 ml/min/1.73 sqM) Glucose (74-99) mg/dL Plasma Lactic Acid Albaro 0.9 (0.7-2.0) mmol/L Calcium (8.4-10.2) mg/dL Total Bilirubin (0.2-1.3) mg/dL AST (17-59) U/L ALT (4-49) U/L Alkaline Phosphatase (38-126) U/L Troponin I 0.024 (0.000-0.034) ng/mL NT-Pro-B Natriuret Pep pg/mL Total Protein (6.3-8.2) g/dL Albumin (3.5-5.0) g/dL Influenza Type A (PCR) Not Detected (Not Detectd) Influenza Type B (PCR) Not Detected (Not Detectd) RSV (PCR) Not Detected (Not Detectd) SARS-CoV-2 (PCR) Detected A (Not Detectd) Disposition Clinical Impression: Tachycardia, Acute exacerbation of chronic obstructive pulmonary disease, COVID-19, Leukocytosis Disposition: ADMITTED IP TO THIS [facility] Condition: Stable Is patient prescribed a controlled substance at d/c from ED?: No Time of Disposition: 23:36 Decision to Admit Reason: Admit from EC Decision Date: 04/13/23 Decision Time: 23:36
--- NOTE | 2023-04-13 22:59 | XR ---
EXAM: XR Chest, 1 View CLINICAL HISTORY: ITS.REASON XR Reason: difficulty breathing, covid positive TECHNIQUE: Frontal view of the chest. COMPARISON: No relevant prior studies available. FINDINGS: Lungs: See below. Pleural space: Small LEFT pleural effusion. Mild pulmonary vascular congestion. No pneumothorax. Heart: Cardiomegaly. Mediastinum: Unremarkable. Bones/joints: Unremarkable. IMPRESSION: Small LEFT pleural effusion. Mild pulmonary vascular congestion.
[2023-04-13] MEDS ORDERED: NALOXONE 0.4 MG/ML 1 ML VIAL IV PRN (23:36)
[2023-04-13] MEDS ORDERED: IBUPROFEN 400 MG TAB PO PRN (23:36)
[2023-04-13] MEDS ORDERED: PNEUMONIA PROTOCOL UTILIZED 1 EACH MISC PO PRN (23:38)
[2023-04-13] MEDS ORDERED: AZITHROMYCIN 500 MG in SODIUM CHLORIDE 0.9% 250 ML IVPB STA (23:38)
[2023-04-13] MEDS ORDERED: ALBUTEROL HFA INHALER INHALATION PRN (23:40)
[2023-04-14 06:57] LABS: Basophils % (A) 0 %; Eosinophils % (A) 0 %; HGB 10.8 gm/dL (13.0-17.5); Lymphocytes # (A) 0.4 k/uL (1.0-4.8); Lymphocytes % (A) 5 %; MCH 29.3 pg (25.0-35.0); MCHC 31.6 g/dL (31.0-37.0); MCV 92.8 fL (80.0-100.0); Mean Platelet Volume 7.6; Monocytes # (A) 0.1 k/uL (0-1.0); Monocytes % (A) 1 %; Neutrophils # (A) 9.2 k/uL (1.3-7.7); Neutrophils % (A) 94 %; Platelet Count 252 k/uL (150-450); RBC 3.67 m/uL (4.30-5.90); WBC 9.8 k/uL (3.8-10.6)
[2023-04-14 07:13] LABS: African American GFR (CKD) 34 (>60 ml/min/1.73 sqM); Anion Gap 8 mmol/L; Blood Urea Nitrogen 46 mg/dL (9-20); Calcium 8.6 mg/dL (8.4-10.2); Carbon Dioxide 22 mmol/L (22-30); Chloride 107 mmol/L (98-107); Glucose 179 mg/dL (74-99); Non-African American GFR(CKD) 30 (>60 ml/min/1.73 sqM); Potassium 5.8 mmol/L (3.5-5.1); Sodium 137 mmol/L (137-145)
--- NOTE | 2023-04-14 11:36 | CT ---
EXAMINATION TYPE: CT chest wo con CT DLP: 281.2 mGycm, Automated exposure control for dose reduction was used. DATE OF EXAM: 04/14/2023 11:22 AM COMPARISON: Multiple CT chest with most recent 05/30/2021, chest radiograph 04/13/2023. CLINICAL INDICATION:Male, 87 years old with history of cap; PHH, Covid positive, dyspnea. TECHNIQUE: Multiple axial images were obtained through the chest without IV contrast. Lack of IV or o ral contrast limits evaluation of solid and hollow organ viscera. . Coronal and sagittal reformats re viewed. FINDINGS: LUNGS/ PLEURA: Trace left pleural effusion with associated atelectasis. Left anterior upper lobe calc ified pleural plaque identified. Bilateral lower lobe posterior calcified pleural plaques. Mild to m oderate centrilobular emphysematous changes. Few scattered reticular peripheral groundglass opacities throughout the lungs. Left lower lobe reticular opacities. Linear scarring and/or atelectasis within the right lower lobe. AIRWAY: Patent and unremarkable.. HEART: Size within normal limits. No pericardial effusion. MEDIASTINUM: No pathologically enlarged lymphadenopathy. VASCULATURE: No aortic aneurysm. Atelectatic calcification of the aorta and its branches. MUSCULOSKELETAL: Moderate disc degeneration changes are present throughout the thoracolumbar spine. N o acute osseous abnormality. Grade 1 anterolisthesis of C7 on T1. SOFT TISSUES/LYMPH NODES: Unremarkable. LOWER NECK: No significant findings. UPPER ABDOMEN: Stable left hepatic lobe hypodense 3.0 cm lesion dating back to 2020 and considered be nign. Stable left renal cyst measuring up to 1.6 cm. IMPRESSION: 1. Trace left pleural effusion with a few patchy scattered peripheral reticular opacities throughout the lungs and most probably within the left lower lobe. This is concerning for atypical pneumonia suc h as reported Covid. 2. Mild COPD changes. 3. Calcified pleural plaques redemonstrated. Correlate for asbestosis exposure.
[2023-04-14] MEDS: DEXAMETHASONE SOD PHOSPHATE 10 MG/ML 1 ML VIAL IVP SCH (11:41)
[2023-04-14] MEDS: SODIUM CHLORIDE 0.9% 1,000 ML IV SCH ×2 (11:42→23:20)
[2023-04-14] MEDS: AZITHROMYCIN 500 MG in SODIUM CHLORIDE 0.9% 250 ML IVPB SCH (11:42)
[2023-04-14] MEDS: ALBUTEROL HFA INHALER INHALATION SCH ×3 (11:46→20:08)
[2023-04-14] MEDS: TIOTROPIUM 2.5 MCG INHALER INHALATION SCH (11:47)
[2023-04-14] MEDS ORDERED: IPRATROPIUM-ALBUTEROL 3 ML NEB INHALATION SCH (12:00)
--- NOTE | 2023-04-14 15:36 | P.CNPUL ---
History of Present Illness Consult date: 04/14/23 Reason for consult: pneumonia, other (COVID 19 infection) History of present illness: This is a 87-year-old male patient with known history of COPD who presented emergency department having shortness of breath. The patient was in the hospital approximately week ago and he tested positive for Covid 19 and he was discharged home. Noted at that time, the patient denied having any significant respiratory difficulties and some increased cough. No nausea or emesis. The patient came back and the Covid 19 testing was again positive. The white cell count was at 9.8, hemoglobin is at 10.8, BUN is at 46 and the creatinine is at 1.96 and the patient has chronic kidney disease. Potassium is at 5.8. Legionella urine antigen is negative for now. The rest of the viral screen was also negative. CAT scan of the chest was also done that showed a trace left- sided pleural effusion and areas of patchy scattered peripheral reticular opacities throughout the lungs most prominent in the left. There is concern for an atypical pneumonia although bacterial pneumonia cannot be completely ruled out. There was background emphysema. At home, the patient does not have any maintenance respiratory medications. Uses a nebulizer. He is currently on a termination of Rocephin and Zithromax and is also on Decadron. Patient is also on 2 L O2 nasal cannula with a pulse ox of 95%. No abdominal pain. No nausea or vomiting and there is no altered mentation. Coagulation profile is normal. D-dimer has not been checked. Review of Systems Constitutional: Denies chills, Denies fever Eyes: denies as per HPI, denies blurred vision, denies bulging eye, denies decreased vision, denies diplopia, denies discharge, denies dry eye, denies irritation, denies itching, denies pain, denies photophobia, denies loss of peripheral vision, denies loss of vision, denies tunnel vision/blind spots Ears: deny: decreased hearing, ear discharge, earache, tinnitus Ears, nose, mouth and throat: Reports as per HPI Breasts: absent: as per HPI, gynecomastia Cardiovascular: Reports dyspnea on exertion Respiratory: Reports cough, Reports dyspnea Gastrointestinal: Reports as per HPI Genitourinary: Reports as per HPI Musculoskeletal: Reports as per HPI Musculoskeletal: absent: ankle pain, ankle stiffness, ankle swelling Integumentary: Reports as per HPI Neurological: Reports as per HPI Psychiatric: Reports as per HPI Endocrine: Reports as per HPI Hematologic/Lymphatic: Reports as per HPI Allergic/Immunologic: Reports as per HPI Past Medical History Past Medical History: COPD, Pneumonia Additional Past Medical History / Comment(s): HX C-DIFF (2011), BACK PAIN , chronic stage III kidney disease History of Any Multi-Drug Resistant Organisms: C-DIFF Date of last positivie culture/infection: C-Diff MDRO Source:: stool Past Surgical History: Hernia Repair Past Anesthesia/Blood Transfusion Reactions: No Reported Reaction Past Psychological History: No Psychological Hx Reported Smoking Status: Former smoker Past Alcohol Use History: Rare Past Drug Use History: None Reported - Past Family History Sister(s) Family Medical History: Cancer Additional Family Medical History / Comment(s): pancreatic Brother(s) Family Medical History: Cancer Medications and Allergies Home Medications Medication Instructions Recorded Confirmed Type Atorvastatin [Lipitor] 20 mg PO HS tab 04/27/20 04/14/23 Rx amLODIPine [Norvasc] 5 mg PO DAILY 11/30/21 04/14/23 History Nitroglycerin Sl Tabs [Nitrostat] 0.4 mg SUBLINGUAL Q5M PRN 100 Days 12/02/21 04/14/23 Rx #100 tab Budesonide/Formoterol Fumarate 2 puff INHALATION RT-BID 04/14/23 04/14/23 History [Symbicort 160-4.5 Mcg Inhaler] Allergies Allergy/AdvReac Type Severity Reaction Status Date / Time Penicillins Allergy Unknown Verified 04/14/23 08:05 Childhood Physical Exam Vitals: Vital Signs Temp Pulse Resp BP Pulse Ox 04/14/23 11:38 98.3 F 91 18 166/100 97 04/14/23 10:00 77 18 99 04/14/23 09:00 69 18 98 04/14/23 07:41 97.9 F 95 18 136/94 97 04/14/23 03:42 78 18 95 04/14/23 01:03 95 18 150/87 95 04/13/23 23:11 105 H 20 143/86 92 L 04/13/23 22:26 99.2 F 04/13/23 21:30 28 H 04/13/23 21:11 100.1 F H 131 H 26 H 184/107 96 Intake and Output 04/13/23 04/14/23 04/14/23 22:59 06:59 14:59 Other: Weight 63.503 kg General appearance: alert, in no apparent distress, the patient is currently on 2 L of oxygen by nasal cannula, calm and comfortable, breathing is nonlabored at this point in time Head exam: Present: atraumatic, normocephalic, normal inspection Eye exam: Present: normal appearance, PERRL, EOMI. Absent: scleral icterus, conjunctival injection, periorbital swelling ENT exam: Present: normal exam, mucous membranes moist Neck exam: Present: normal inspection. Absent: tenderness, meningismus, lymphadenopathy Respiratory exam: Present: rales, accessory muscle use, decreased breath sounds. Absent: respiratory distress, wheezes, rhonchi, stridor Cardiovascular Exam: Present: regular rate, normal rhythm, normal heart sounds. Absent: systolic murmur, diastolic murmur, rubs, gallop, clicks GI/Abdominal exam: Present: soft, normal bowel sounds. Absent: distended, tenderness, guarding, rebound, rigid Extremities exam: Present: normal inspection, full ROM, normal capillary refill. Absent: tenderness, pedal edema, joint swelling, calf tenderness Back exam: Present: normal inspection Neurological exam: Present: alert, oriented X3, CN II-XII intact Psychiatric exam: Present: normal affect, normal mood Skin exam: Present: warm, dry, intact, normal color. Absent: rash Results - Laboratory Findings CBC and BMP: 04/14/23 06:42 04/14/23 06:42 ABG WBC 9.8 k/uL (3.8-10.6) 04/14/23 06:42 RBC 3.67 m/uL (4.30-5.90) L 04/14/23 06:42 Hgb 10.8 gm/dL (13.0-17.5) L 04/14/23 06:42 Hct 34.0 % (39.0-53.0) L 04/14/23 06:42 MCV 92.8 fL (80.0-100.0) 04/14/23 06:42 MCH 29.3 pg (25.0-35.0) 04/14/23 06:42 MCHC 31.6 g/dL (31.0-37.0) 04/14/23 06:42 RDW 15.0 % (11.5-15.5) 04/14/23 06:42 Plt Count 252 k/uL (150-450) 04/14/23 06:42 MPV 7.6 04/14/23 06:42 Neutrophils % 94 % 04/14/23 06:42 Lymphocytes % 5 % 04/14/23 06:42 Monocytes % 1 % 04/14/23 06:42 Eosinophils % 0 % 04/14/23 06:42 Basophils % 0 % 04/14/23 06:42 Neutrophils # 9.2 k/uL (1.3-7.7) H 04/14/23 06:42 Lymphocytes # 0.4 k/uL (1.0-4.8) L 04/14/23 06:42 Monocytes # 0.1 k/uL (0-1.0) 04/14/23 06:42 Eosinophils # 0.0 k/uL (0-0.7) 04/14/23 06:42 Basophils # 0.0 k/uL (0-0.2) 04/14/23 06:42 PT 9.4 sec (9.0-12.0) 04/13/23 21:25 INR 0.9 (<1.2) 04/13/23 21:25 APTT 23.2 sec (22.0-30.0) 04/13/23 21:25 Sodium 137 mmol/L (137-145) 04/14/23 06:42 Potassium 5.8 mmol/L (3.5-5.1) H 04/14/23 06:42 Chloride 107 mmol/L (98-107) 04/14/23 06:42 Carbon Dioxide 22 mmol/L (22-30) 04/14/23 06:42 Anion Gap 8 mmol/L 04/14/23 06:42 BUN 46 mg/dL (9-20) H 04/14/23 06:42 Creatinine 1.96 mg/dL (0.66-1.25) H 04/14/23 06:42 Est GFR (CKD-EPI)AfAm 34 (>60 ml/min/1.73 sqM) 04/14/23 06:42 Est GFR (CKD-EPI)NonAf 30 (>60 ml/min/1.73 sqM) 04/14/23 06:42 Glucose 179 mg/dL (74-99) H 04/14/23 06:42 Plasma Lactic Acid Albaro 0.9 mmol/L (0.7-2.0) 04/13/23 21:25 Calcium 8.6 mg/dL (8.4-10.2) 04/14/23 06:42 Total Bilirubin 0.6 mg/dL (0.2-1.3) 04/13/23 21:25 AST 30 U/L (17-59) 04/13/23 21:25 ALT 20 U/L (4-49) 04/13/23 21:25 Alkaline Phosphatase 100 U/L (38-126) 04/13/23 21:25 Troponin I 0.024 ng/mL (0.000-0.034) 04/13/23 21:25 NT-Pro-B Natriuret Pep 811 pg/mL 04/13/23 21:25 Total Protein 7.0 g/dL (6.3-8.2) 04/13/23 21:25 Albumin 3.9 g/dL (3.5-5.0) 04/13/23 21:25 Influenza Type A (PCR) Not Detected (Not Detectd) 04/13/23 21:25 Influenza Type B (PCR) Not Detected (Not Detectd) 04/13/23 21:25 RSV (PCR) Not Detected (Not Detectd) 04/13/23 21:25 SARS-CoV-2 (PCR) Detected (Not Detectd) A 04/13/23 21:25 PT/INR, D-dimer PT 9.4 sec (9.0-12.0) 04/13/23 21:25 INR 0.9 (<1.2) 04/13/23 21:25 Abnormal lab findings: Abnormal Labs 04/13/23 04/13/23 04/13/23 21:25 21:25 21:25 WBC 14.3 H RBC 3.90 L Hgb 11.3 L Hct 36.0 L Neutrophils # 11.9 H Lymphocytes # Potassium 5.2 H Chloride 110 H Carbon Dioxide 20 L BUN 45 H Creatinine 2.06 H Glucose SARS-CoV-2 (PCR) Detected A 04/14/23 04/14/23 06:42 06:42 WBC RBC 3.67 L Hgb 10.8 L Hct 34.0 L Neutrophils # 9.2 H Lymphocytes # 0.4 L Potassium 5.8 H Chloride Carbon Dioxide BUN 46 H Creatinine 1.96 H Glucose 179 H SARS-CoV-2 (PCR) - Diagnostic Findings Chest x-ray: image reviewed CT scan - chest: image reviewed Assessment and Plan Plan: Covid 19 infection, diagnosed on 05/03/2023 Acute pneumonia with vague patchy but the pulmonary infiltrates more so on the left lower lobe. Consider possibility of a Covid 19 related pneumonia. Superimposed bacterial pneumonia cannot be completely excluded Acute COPD exacerbation secondary to above Acute hypoxic respiratory failure currently on 2 L of oxygen nasal cannula Sinus tachycardia Mild leukocytosis Chronic stage III kidney disease Hyperkalemia with a potassium level of 5.8 Plan Check pro calcitonin level CAT scan of the chest was reviewed and there is a concern for bacterial pneumonia. I do suggest continuing the current antibiotics for now. No evidence of any pulmonary embolism. Continue Rocephin and Zithromax Continue Decadron 6 mg IV every 24 hours IV fluids at 75 mL an hour of normal saline Albuterol HFA Monitor potassium level Oxygen supplementation to maintain a saturation above 90%
[2023-04-14] MEDS ORDERED: BUDESONIDE 0.5 MG/2 ML NEBU INHALATION SCH (20:00)
[2023-04-14] MEDS: FLUTICASONE 110 MCG INHALER INHALATION SCH (20:10)
--- NOTE | 2023-04-14 22:14 | P.CONS ---
History of Present Illness - Reason for Consult Consult date: 04/14/23 - History of Present Illness This patient is a 87-year-old male with a past medical history significant for COPD pneumonia patient presenting to the hospital for evaluation of increasing shortness of breath patient mention has not been feeling well for about a week and apparently has been diagnosed with a COVID-19 when the patient was evaluated in [facility] ER on 04/06/2023 patient was subsequently discharged home now presenting back to the hospital with worsening shortness of breath that has been getting worse over the last day 1 to patient denies having any chest pain he did have a cough moderate in intensity however no significant sputum production no hemoptysis denies any nausea or vomiting no abdominal pain or any diarrhea with the symptoms the patient has been brought back to the hospital on presentation to the hospital he did have a low-grade fever 100.1 F patient was mildly tachycardic and hypoxic with O2 sats of 92% currently 96% on 2 L nasal cannula oxygen patient did have a white count of 14.3 with a left shift BUN and creatinine has been mildly elevated liver enzymes are normal influenza RSV was negative COVID test was positive patient did have a chest x- ray small left effusion and mild pulmonary vascular congestion patient did have a CT of the chest traced left effusion with a patchy peripheral reticular opacities especially the left lower lobe patient has been admitted to hospital he was tried on ceftriaxone Zithromax in addition to the Decadron infectious disease was consulted for further management of antibiotic therapy Past Medical History Past Medical History: COPD, Pneumonia Additional Past Medical History / Comment(s): HX C-DIFF (2011), BACK PAIN History of Any Multi-Drug Resistant Organisms: C-DIFF Year Discovered:: 2011/C-Diff MDRO Source:: stool Past Surgical History: Hernia Repair Past Anesthesia/Blood Transfusion Reactions: No Reported Reaction Past Psychological History: No Psychological Hx Reported Smoking Status: Former smoker Past Alcohol Use History: Rare Past Drug Use History: None Reported - Past Family History Sister(s) Family Medical History: Cancer Additional Family Medical History / Comment(s): pancreatic Brother(s) Family Medical History: Cancer Medications and Allergies Home Medications Medication Instructions Recorded Confirmed Type Atorvastatin [Lipitor] 20 mg PO HS tab 04/27/20 04/14/23 Rx amLODIPine [Norvasc] 5 mg PO DAILY 11/30/21 04/14/23 History Nitroglycerin Sl Tabs [Nitrostat] 0.4 mg SUBLINGUAL Q5M PRN 100 Days 12/02/21 04/14/23 Rx #100 tab Budesonide/Formoterol Fumarate 2 puff INHALATION RT-BID 04/14/23 04/14/23 History [Symbicort 160-4.5 Mcg Inhaler] Allergies Allergy/AdvReac Type Severity Reaction Status Date / Time Penicillins Allergy Unknown Verified 04/14/23 08:05 Childhood Physical Exam Vitals: Vital Signs Temp Pulse Resp BP Pulse Ox 04/14/23 11:38 98.3 F 91 18 166/100 97 04/14/23 10:00 77 18 99 04/14/23 09:00 69 18 98 04/14/23 07:41 97.9 F 95 18 136/94 97 04/14/23 03:42 78 18 95 04/14/23 01:03 95 18 150/87 95 04/13/23 23:11 105 H 20 143/86 92 L 04/13/23 22:26 99.2 F 04/13/23 21:30 28 H 04/13/23 21:11 100.1 F H 131 H 26 H 184/107 96 Intake and Output 04/13/23 04/14/23 04/14/23 22:59 06:59 14:59 Other: Weight 63.503 kg Results CBC & Chem 7: 04/15/23 08:09 04/15/23 08:09 Labs: Abnormal Lab Results - Last 24 Hours (Table) 04/13/23 04/13/23 04/13/23 Range/Units 21:25 21:25 21:25 WBC 14.3 H (3.8-10.6) k/uL RBC 3.90 L (4.30-5.90) m/uL Hgb 11.3 L (13.0-17.5) gm/dL Hct 36.0 L (39.0-53.0) % Neutrophils # 11.9 H (1.3-7.7) k/uL Lymphocytes # (1.0-4.8) k/uL Potassium 5.2 H (3.5-5.1) mmol/L Chloride 110 H (98-107) mmol/L Carbon Dioxide 20 L (22-30) mmol/L BUN 45 H (9-20) mg/dL Creatinine 2.06 H (0.66-1.25) mg/dL Glucose (74-99) mg/dL SARS-CoV-2 (PCR) Detected A (Not Detectd) 04/14/23 04/14/23 Range/Units 06:42 06:42 WBC (3.8-10.6) k/uL RBC 3.67 L (4.30-5.90) m/uL Hgb 10.8 L (13.0-17.5) gm/dL Hct 34.0 L (39.0-53.0) % Neutrophils # 9.2 H (1.3-7.7) k/uL Lymphocytes # 0.4 L (1.0-4.8) k/uL Potassium 5.8 H (3.5-5.1) mmol/L Chloride (98-107) mmol/L Carbon Dioxide (22-30) mmol/L BUN 46 H (9-20) mg/dL Creatinine 1.96 H (0.66-1.25) mg/dL Glucose 179 H (74-99) mg/dL SARS-CoV-2 (PCR) (Not Detectd) Assessment and Plan Plan: 1patient present to hospital with increasing shortness of breath which is multifactorial in this patient who do have underlying COPD and was diagnosed with a COVID-19 more than a week ago now presenting with worsening respiratory symptoms did have a low-grade fever elevated white count predominant left lower lobe infiltrate with a question of possible secondary bacterial pneumonia. 2patient with a penicillin allergy that will limit the number of antibiotics safe to use. 3obtain a sputum for Gram stain and culture and check a procalcitonin level. 4continue with Rocephin and Zithromax while waiting for the culture to finalize. We will follow on clinical condition and cultures to further adjust medication if needed Thank you for this consultation we will follow the patient along with you Dictation was produced using [employer] dictation software. please excuse any grammatical, word or spelling errors. Time with Patient: Greater than 30
[2023-04-14] MEDS: ACETAMINOPHEN TAB 325 MG TAB PO PRN (23:57)
--- NOTE | 2023-04-15 06:02 | HP ---
HISTORY AND PHYSICAL HISTORY OF PRESENT ILLNESS: This is an 87-year-old white male, past medical history of COPD, severe alcohol dependence, shortness of breath, cough, congestion, shortness of breath, weakness, positive COVID. The patient was started on Decadron, IV antibiotics, IV steroids, updraft treatments with Pulmicort, budesonide. Had no nausea or vomiting, temperature is 100.1, O2 is low 90s on 2 L. PAST MEDICAL HISTORY: COPD, pneumonia, history of C diff. He is a former smoker. FAMILY HISTORY: Sister cancer pancreatic, brother cancer. HOME MEDICINES: 1. Lipitor 20 daily. 2. Nitroglycerin sublingual p.r.n. 3. Symbicort 2 puffs b.i.d. ALLERGIES: Penicillin. PHYSICAL EXAMINATION: VITAL SIGNS: Temp 97 to 98, pulse 70s to 90s, respiratory rate 16 to 18, blood pressure 150s to 160s over 87 to 100, O2 saturation 95 to 97%. T-max 100.1. CARDIOVASCULAR: S1, S2. LUNGS: Scattered rhonchi and wheeze. HEMATOLOGY: Negative for Homans. PSYCH: Fair mood and affect. LABORATORY DATA: BUN is 46, creatinine 1.96, hemoglobin is 10.8, sodium 137, potassium 5.6, white count 14.3, hemoglobin 11.3. CO2 is low at 20, BUN 45, creatinine 2.06. multifactorial COPD, COVID-19, left lower lobe infiltrate, possible bacterial pneumonia. Sputum for Gram stain, sputum culture, procalcitonin. Continue Rocephin, azithromycin. Wait for further cultures. Prognosis guarded. Follow up in next 24 to 48 hours. Please see further orders. MMODL / IJN: [id number] /
[2023-04-15 08:38] LABS: Basophils % (A) 0 %; Eosinophils % (A) 0 %; HCT 33.7 % (39.0-53.0); HGB 10.6 gm/dL (13.0-17.5); Lymphocytes # (A) 1.2 k/uL (1.0-4.8); Lymphocytes % (A) 6 %; MCH 29.2 pg (25.0-35.0); MCHC 31.4 g/dL (31.0-37.0); MCV 92.9 fL (80.0-100.0); Mean Platelet Volume 7.6; Monocytes # (A) 0.6 k/uL (0-1.0); Monocytes % (A) 3 %; Neutrophils # (A) 17.6 k/uL (1.3-7.7); Neutrophils % (A) 90 %; Platelet Count 282 k/uL (150-450); RBC 3.62 m/uL (4.30-5.90); RDW 15.1 % (11.5-15.5); WBC 19.5 k/uL (3.8-10.6)
[2023-04-15] MEDS: ALBUTEROL HFA INHALER INHALATION SCH ×4 (08:48→21:30)
[2023-04-15] MEDS: TIOTROPIUM 2.5 MCG INHALER INHALATION SCH (08:49)
[2023-04-15] MEDS: FLUTICASONE 110 MCG INHALER INHALATION SCH ×2 (08:49→21:30)
[2023-04-15 09:18] LABS: ALT 20 U/L (4-49); AST 27 U/L (17-59); African American GFR (CKD) 41 (>60 ml/min/1.73 sqM); Albumin 3.6 g/dL (3.5-5.0); Albumin/Globulin Ratio 1.1; Alkaline Phosphatase 87 U/L (38-126); Anion Gap 8 mmol/L; Blood Urea Nitrogen 45 mg/dL (9-20); Calcium 8.9 mg/dL (8.4-10.2); Carbon Dioxide 24 mmol/L (22-30); Chloride 107 mmol/L (98-107); Globulin 3.3 g/dL; Glucose 88 mg/dL (74-99); Magnesium 2.1 mg/dL (1.6-2.3); Non-African American GFR(CKD) 36 (>60 ml/min/1.73 sqM); Potassium 5.1 mmol/L (3.5-5.1); Sodium 139 mmol/L (137-145); Total Bilirubin 0.3 mg/dL (0.2-1.3); Total Protein 6.9 g/dL (6.3-8.2)
[2023-04-15] MEDS: amLODIPine 5 MG TAB PO SCH (10:15)
[2023-04-15] MEDS: DEXAMETHASONE SOD PHOSPHATE 10 MG/ML 1 ML VIAL IVP SCH (10:18)
[2023-04-15] MEDS: AZITHROMYCIN 500 MG in SODIUM CHLORIDE 0.9% 250 ML IVPB SCH (10:24)
--- NOTE | 2023-04-15 12:14 | P.PN ---
Subjective Progress Note Date: 04/15/23 This is a 87-year-old male patient with known history of COPD who presented emergency department having shortness of breath. The patient was in the hospital approximately week ago and he tested positive for Covid 19 and he was discharged home. Noted at that time, the patient denied having any significant respiratory difficulties and some increased cough. No nausea or emesis. The patient came back and the Covid 19 testing was again positive. The white cell count was at 9.8, hemoglobin is at 10.8, BUN is at 46 and the creatinine is at 1.96 and the patient has chronic kidney disease. Potassium is at 5.8. Legionella urine antigen is negative for now. The rest of the viral screen was also negative. CAT scan of the chest was also done that showed a trace left- sided pleural effusion and areas of patchy scattered peripheral reticular opacities throughout the lungs most prominent in the left. There is concern for an atypical pneumonia although bacterial pneumonia cannot be completely ruled out. There was background emphysema. At home, the patient does not have any maintenance respiratory medications. Uses a nebulizer. He is currently on a termination of Rocephin and Zithromax and is also on Decadron. Patient is also on 2 L O2 nasal cannula with a pulse ox of 95%. No abdominal pain. No nausea or vomiting and there is no altered mentation. Coagulation profile is normal. D-dimer has not been checked. On today's evaluation of 04/15/2023, I'm seeing the patient for a follow-up. The patient is feeling better compared to yesterday. The patient remains on examination Rocephin and Zithromax. The patient is also on Decadron. Noted the patient was positive for Covid 19 for the past 1 week at least. There is suspicion for a superinfection and based on that the patient was covered with accommodation of Rocephin and Zithromax. The labs from today shows a WBC count of 19.5, hematemesis 10.6, renal function is improved compared to yesterday and creatinine is down to 1.68 with a BUN of 45, potassium level is at 5.0 with a sodium level of 139. The patient is known to have advanced COPD. Pulse ox on room air is around 94-95%. No altered mentation. No nausea or vomiting or diarrhea or any other new complaints. Objective - Vital Signs Vital signs: Vital Signs Temp 97.8 F 04/15/23 07:49 Pulse 84 04/15/23 10:10 Resp 20 04/15/23 10:10 BP 152/86 04/15/23 10:10 Pulse Ox 97 04/15/23 10:10 FiO2 - Exam General appearance: alert, in no apparent distress, the patient is currently on room air oxygen for now. Breathing is nonlabored Head exam: Present: atraumatic, normocephalic, normal inspection Eye exam: Present: normal appearance, PERRL, EOMI. Absent: scleral icterus, conjunctival injection, periorbital swelling ENT exam: Present: normal exam, mucous membranes moist Neck exam: Present: normal inspection. Absent: tenderness, meningismus, lymphadenopathy Respiratory exam: Present: rales, accessory muscle use, decreased breath sounds. Absent: respiratory distress, wheezes, rhonchi, stridor Cardiovascular Exam: Present: regular rate, normal rhythm, normal heart sounds. Absent: systolic murmur, diastolic murmur, rubs, gallop, clicks GI/Abdominal exam: Present: soft, normal bowel sounds. Absent: distended, tenderness, guarding, rebound, rigid Extremities exam: Present: normal inspection, full ROM, normal capillary refill. Absent: tenderness, pedal edema, joint swelling, calf tenderness Back exam: Present: normal inspection Neurological exam: Present: alert, oriented X3, CN II-XII intact Psychiatric exam: Present: normal affect, normal mood Skin exam: Present: warm, dry, intact, normal color. Absent: rash - Labs CBC & Chem 7: 04/15/23 08:09 04/15/23 08:09 Labs: Abnormal Lab Results - Last 24 Hours (Table) 04/14/23 04/15/23 04/15/23 Range/Units 12:08 08:09 08:09 WBC 19.5 H (3.8-10.6) k/uL RBC 3.62 L (4.30-5.90) m/uL Hgb 10.6 L (13.0-17.5) gm/dL Hct 33.7 L (39.0-53.0) % Neutrophils # 17.6 H (1.3-7.7) k/uL BUN 45 H (9-20) mg/dL Creatinine 1.68 H (0.66-1.25) mg/dL Procalcitonin 0.20 H (0.02-0.09) ng/mL Assessment and Plan Plan: Covid 19 infection, diagnosed on 05/03/2023 Acute pneumonia with vague patchy but the pulmonary infiltrates more so on the left lower lobe. Consider possibility of a Covid 19 related pneumonia. Superimposed bacterial pneumonia cannot be completely excluded Acute COPD exacerbation secondary to above, improving Acute hypoxic respiratory failure currently on room air oxygen Sinus tachycardia Mild leukocytosis Chronic stage III kidney disease, creatinine is improved compared to yesterday Hyperkalemia with a potassium level of 5.8 Plan Repeat chest x-ray in a.m. Check pro calcitonin level was checked yesterday and the level was at 0.2 CAT scan of the chest was reviewed and there is a concern for bacterial pneumonia. I do suggest continuing the current antibiotics for now. No evidence of any pulmonary embolism. Continue Rocephin and Zithromax Continue Decadron 6 mg IV every 24 hours IV fluids at 75 mL an hour of normal saline Albuterol HFA Monitor potassium level Oxygen supplementation to maintain a saturation above 90% We'll continue to follow
[2023-04-15] MEDS: SODIUM CHLORIDE 0.9% 1,000 ML IV SCH (13:40)
--- NOTE | 2023-04-15 17:20 | P.PN ---
Subjective Progress Note Date: 04/15/23 Principal diagnosis: Pneumonia This patient is a 87-year-old male with a past medical history significant for COPD pneumonia patient presenting to the hospital for evaluation of increasing shortness of breath patient mention has not been feeling well for about a week and apparently has been diagnosed with a COVID-19 when the patient was evaluated in [facility] ER on 04/06/2023, patient did test positive for covid 19, CT chest with scattered infected more on the left lower lobe and did have elevated procalcitonin. on today's evaluation that is 04/15/2023, the patient denies any fever or any chills, the patient is breathing comfortably on room air , the patient denies chest pain denies any worsening cough, the patient denies nausea and vomiting no abdominal pain and no diarrhea has been reported Patient did have a white count of 19.5, creatinine is 1.68, procalcitonin 0.20 Objective - Vital Signs Vital signs: Vital Signs Temp 97.8 F 04/15/23 07:49 Pulse 84 04/15/23 10:10 Resp 22 04/15/23 10:33 BP 152/86 04/15/23 10:10 Pulse Ox 97 04/15/23 10:10 FiO2 - Exam GENERAL DESCRIPTION: An elderly male lying in bed in no distress RESPIRATORY SYSTEM: Unlabored breathing , decreased breath sounds at bases HEART: S1 S2 regular rate and rhythm , ABDOMEN: Soft , no tenderness EXTREMITIES: No edema feet - Labs CBC & Chem 7: 04/15/23 08:09 04/15/23 08:09 Labs: Abnormal Lab Results - Last 24 Hours (Table) 04/14/23 04/15/23 04/15/23 Range/Units 12:08 08:09 08:09 WBC 19.5 H (3.8-10.6) k/uL RBC 3.62 L (4.30-5.90) m/uL Hgb 10.6 L (13.0-17.5) gm/dL Hct 33.7 L (39.0-53.0) % Neutrophils # 17.6 H (1.3-7.7) k/uL BUN 45 H (9-20) mg/dL Creatinine 1.68 H (0.66-1.25) mg/dL Procalcitonin 0.20 H (0.02-0.09) ng/mL Assessment and Plan (1) COVID-19 Current Visit: Yes Status: Acute Code(s): U07.1 - COVID-19 SNOMED Code(s): 120330443 (2) Leukocytosis Current Visit: Yes Status: Acute Code(s): D72.829 - ELEVATED WHITE BLOOD CELL COUNT, UNSPECIFIED SNOMED Code(s): 028367577 (3) Pneumonia Current Visit: Yes Status: Acute Code(s): J18.9 - PNEUMONIA, UNSPECIFIED ORGANISM SNOMED Code(s): 021344521 Plan: 1patient present to hospital with increasing shortness of breath which is multifactorial in this patient who do have underlying COPD and was diagnosed with a COVID-19 more than a week ago now presenting with worsening respiratory symptoms did have a low-grade fever elevated white count predominant left lower lobe infiltrate with a question of possible secondary bacterial pneumonia. 2patient with a penicillin allergy that will limit the number of antibiotics safe to use. 3obtain a sputum for Gram stain and culture and check a procalcitonin level. 4patient to continue with Rocephin and Zithromax while waiting for the culture to finalize. 5elevated white count, more likely steroid related and will be monitored closely Dictation was produced using [employer] dictation software. please excuse any grammatical, word or spelling errors.
[2023-04-15] MEDS ORDERED: hydrALAZINE HCL 20 MG/ML 1 ML VIAL IVP PRN (18:44)
[2023-04-15] MEDS: hydrALAZINE HCL 20 MG/ML 1 ML VIAL IVP PRN (20:18)
[2023-04-15] MEDS: ATORVASTATIN 20 MG TAB PO SCH (20:18)
--- NOTE | 2023-04-16 00:03 | PN ---
PROGRESS NOTE The patient is slowly breathing better. His blood pressure is 120s over 78, pulse is 108, respiratory rate 16 to 18, O2 of 96% to 97%. CT scan of the chest shows concern for pneumonia. He continues on Rocephin, azithromycin. White count is 19.5, hemoglobin is 10.6, BUN is 45, creatinine 1.68. GFR is up to 41 from 34. Procalcitonin 0.2. Urine Legionella influenza A/B negative. COVID positive. Respiratory syncytial virus negative. ASSESSMENT: COVID-19, suspect bacterial pneumonia, acute on chronic renal insufficiency, prerenal azotemia, tubular necrosis, acute on chronic anemia, leukocytosis secondary to infection and steroids. Continue current treatment. Chest x-ray in the morning per Pulmonology. MMODL / IJN: [id number] /
[2023-04-16] MEDS: ACETAMINOPHEN TAB 325 MG TAB PO PRN (01:24)
[2023-04-16] MEDS: SODIUM CHLORIDE 0.9% 1,000 ML IV SCH ×2 (01:25→19:50)
[2023-04-16] MEDS: hydrALAZINE HCL 20 MG/ML 1 ML VIAL IVP PRN (03:22)
[2023-04-16] MEDS: FLUTICASONE 110 MCG INHALER INHALATION SCH ×2 (08:10→20:29)
[2023-04-16] MEDS: ALBUTEROL HFA INHALER INHALATION SCH ×4 (08:10→20:29)
[2023-04-16] MEDS: TIOTROPIUM 2.5 MCG INHALER INHALATION SCH (08:10)
[2023-04-16] MEDS: AZITHROMYCIN 500 MG in SODIUM CHLORIDE 0.9% 250 ML IVPB SCH (09:00)
[2023-04-16] MEDS: DEXAMETHASONE SOD PHOSPHATE 10 MG/ML 1 ML VIAL IVP SCH (09:00)
[2023-04-16] MEDS: amLODIPine 5 MG TAB PO SCH (09:00)
[2023-04-16 11:03] LABS: Basophils # (A) 0.02 X 10*3/uL (0.00-0.10); Basophils % (A) 0.1 %; Eosinophils # (A) 0 X 10*3/uL (0.04-0.35); Eosinophils % (A) 0 %; HCT 36.2 % (39.6-50.0); HGB 11.5 d/dL (13.0-17.0); Lymphocytes # (A) 2.41 X 10*3/uL (0.90-5.00); Lymphocytes % (A) 12.4 %; MCH 28.8 pg (27.0-32.0); MCHC 31.8 d/dL (32.0-37.0); MCV 90.5 FL (80.0-97.0); Mean Platelet Volume 9.9 FL (9.5-12.2); Monocytes # (A) 0.88 X 10*3/uL (0.20-1.00); Monocytes % (A) 4.5 %; NRBC Per 100 WBC 0 X 10*3/uL (0.00-0.01); Neutrophils % (A) 82.5 %; Platelet Count 309 X 10*3/uL (140-440); RDW 15.1 % (11.5-14.5)
[2023-04-16 11:40] LABS: ALT 21 U/L (10-49); AST 22 U/L (14-35); Albumin 4.2 d/dL (3.8-4.9); Albumin/Globulin Ratio 1.56 Ratio (1.60-3.17); Alkaline Phosphatase 97 U/L (41-126); BUN/Creat Ratio 25.69 Ratio (12.00-20.00); Blood Urea Nitrogen 41.1 mg/dL (9.0-27.0); Calcium 9.6 mg/dL (8.7-10.3); Carbon Dioxide 23.4 mmol/L (21.6-31.8); Chloride 105 mmol/L (96-109); Globulin 2.7 d/dL (1.6-3.3); Glucose 86 mg/dL (70-110); Potassium 4.6 mmol/L (3.5-5.5); Sodium 140 mmol/L (135-145); Total Bilirubin <0.2 mg/dL (0.3-1.2); Total Protein 6.9 d/dL (6.2-8.2)
--- NOTE | 2023-04-16 13:30 | P.PN ---
Subjective Progress Note Date: 04/16/23 This is a 87-year-old male patient with known history of COPD who presented emergency department having shortness of breath. The patient was in the hospital approximately week ago and he tested positive for Covid 19 and he was discharged home. Noted at that time, the patient denied having any significant respiratory difficulties and some increased cough. No nausea or emesis. The patient came back and the Covid 19 testing was again positive. The white cell count was at 9.8, hemoglobin is at 10.8, BUN is at 46 and the creatinine is at 1.96 and the patient has chronic kidney disease. Potassium is at 5.8. Legionella urine antigen is negative for now. The rest of the viral screen was also negative. CAT scan of the chest was also done that showed a trace left- sided pleural effusion and areas of patchy scattered peripheral reticular opacities throughout the lungs most prominent in the left. There is concern for an atypical pneumonia although bacterial pneumonia cannot be completely ruled out. There was background emphysema. At home, the patient does not have any maintenance respiratory medications. Uses a nebulizer. He is currently on a termination of Rocephin and Zithromax and is also on Decadron. Patient is also on 2 L O2 nasal cannula with a pulse ox of 95%. No abdominal pain. No nausea or vomiting and there is no altered mentation. Coagulation profile is normal. D-dimer has not been checked. On today's evaluation of 04/15/2023, I'm seeing the patient for a follow-up. The patient is feeling better compared to yesterday. The patient remains on examination Rocephin and Zithromax. The patient is also on Decadron. Noted the patient was positive for Covid 19 for the past 1 week at least. There is suspicion for a superinfection and based on that the patient was covered with accommodation of Rocephin and Zithromax. The labs from today shows a WBC count of 19.5, hematemesis 10.6, renal function is improved compared to yesterday and creatinine is down to 1.68 with a BUN of 45, potassium level is at 5.0 with a sodium level of 139. The patient is known to have advanced COPD. Pulse ox on room air is around 94-95%. No altered mentation. No nausea or vomiting or diarrhea or any other new complaints. 04/16 2023, the patient is feeling well. Patient has no specific complaints. White cell count remains elevated at 19.4 with a hemoglobin of 11.5, BUN is at 41 with a creatinine of 1.6. LFTs are within normal limits. Sodium level is at 140. Pro-calcitonin level is at 0.2. The patient is on 3 L of Oxymizer nasal cannula with a pulse ox of 98%. He is afebrile. No other new complaints otherwise for now. Objective - Vital Signs Vital signs: Vital Signs Temp 97.7 F 04/16/23 09:00 Pulse 115 H 04/16/23 09:00 Resp 18 04/16/23 09:00 BP 124/70 04/16/23 09:00 Pulse Ox 98 04/16/23 09:00 FiO2 Intake & Output 04/15/23 04/16/23 04/16/23 18:59 06:59 18:59 Other: Voiding Method Toilet Toilet # Voids 1 - Exam General appearance: alert, in no apparent distress, the patient is currently on 3 L O2 with a pulse ox of 98%. Breathing is nonlabored Head exam: Present: atraumatic, normocephalic, normal inspection Eye exam: Present: normal appearance, PERRL, EOMI. Absent: scleral icterus, conjunctival injection, periorbital swelling ENT exam: Present: normal exam, mucous membranes moist Neck exam: Present: normal inspection. Absent: tenderness, meningismus, lymphadenopathy Respiratory exam: Present: rales, accessory muscle use, decreased breath sounds. Absent: respiratory distress, wheezes, rhonchi, stridor Cardiovascular Exam: Present: regular rate, normal rhythm, normal heart sounds. Absent: systolic murmur, diastolic murmur, rubs, gallop, clicks GI/Abdominal exam: Present: soft, normal bowel sounds. Absent: distended, tenderness, guarding, rebound, rigid Extremities exam: Present: normal inspection, full ROM, normal capillary refill. Absent: tenderness, pedal edema, joint swelling, calf tenderness Back exam: Present: normal inspection Neurological exam: Present: alert, oriented X3, CN II-XII intact Psychiatric exam: Present: normal affect, normal mood Skin exam: Present: warm, dry, intact, normal color. Absent: rash - Labs CBC & Chem 7: 04/16/23 06:57 09/13/23 06:57 Labs: Abnormal Lab Results - Last 24 Hours (Table) 04/16/23 Range/Units 06:57 WBC 19.40 H (4.50-10.00) X 10*3/uL RBC 4.00 L (4.40-5.60) X 10*6/uL Hgb 11.5 L (13.0-17.0) d/dL Hct 36.2 L (39.6-50.0) % MCHC 31.8 L (32.0-37.0) d/dL RDW 15.1 H (11.5-14.5) % Neutrophils # 16.00 H (1.80-7.70) X 10*3/uL Eosinophils # 0 L (0.04-0.35) X 10*3/uL Microbiology - Last 24 Hours (Table) 04/14/23 00:13 Blood Culture - Preliminary Blood 04/14/23 00:00 Blood Culture - Preliminary Blood Assessment and Plan Plan: Covid 19 infection, diagnosed on 05/03/2023, currently on Decadron 6 mg IV every 24 hours Acute pneumonia with vague patchy but the pulmonary infiltrates more so on the left lower lobe. Consider possibility of a Covid 19 related pneumonia. Superimposed bacterial pneumonia cannot be completely excluded. The patient is currently on IV Rocephin Acute COPD exacerbation secondary to above, improving Acute hypoxic respiratory failure currently on room air oxygen Sinus tachycardia Mild leukocytosis Chronic stage III kidney disease, creatinine is improved compared to yesterday Hyperkalemia with a potassium level of 5.8 Plan Continue Spiriva 2 puffs once a day and albuterol HFA 2 puffs 4 times a day Repeat chest x-ray in a.m. and this was ordered for tomorrow Check pro calcitonin level was checked yesterday and the level was at 0.2 CAT scan of the chest was reviewed and there is a concern for bacterial pneumonia. I do suggest continuing the current antibiotics for now. No evidence of any pulmonary embolism. Continue Rocephin Continue Decadron 6 mg IV every 24 hours IV fluids at 75 mL an hour of normal saline Albuterol HFA Monitor potassium level Oxygen supplementation to maintain a saturation above 90% We'll continue to follow
[2023-04-16] MEDS: ATORVASTATIN 20 MG TAB PO SCH (20:38)
--- NOTE | 2023-04-17 01:21 | PN ---
PROGRESS NOTE SUBJECTIVE: An 87-year-old white male, continues on Decadron, antibiotics for pneumonia. OBJECTIVE: CARDIOVASCULAR: S1, S2. LUNGS: Scattered rhonchi and wheeze. HEMATOLOGY: Negative Homans. PSYCH: Fair mood and affect. NEUROLOGIC: Alert and oriented x3. PLAN: Plan is to continue current treatment. Continue on Ventolin inhaler, Norvasc, Lipitor, Apresoline, Flomax, Flovent, Decadron, Spiriva Respimat. The patient is doing well. This is an 87-year-old white male with COVID pneumonia, community-acquired pneumonia with possible bacterial infection. Continue current treatment. Prognosis guarded. Please see further orders. MMODL / IJN: [id number] /
[2023-04-17] MEDS: SODIUM CHLORIDE 0.9% 1,000 ML IV SCH (05:07)
--- NOTE | 2023-04-17 07:31 | XR ---
EXAMINATION TYPE: XR chest 1V DATE OF EXAM: 04/17/2023 COMPARISON: 04/13/[address] 04/14/2023 HISTORY: 87-year-old male pneumonia TECHNIQUE: Single frontal view of the chest is obtained. FINDINGS: Heart upper limits of normal in size. Atherosclerotic arch calcifications. Old healed frac ture deformity right mid clavicular shaft. Residual patchy opacity at the left base. More apparent no w and is a 1.8 cm nodular density at the periphery of the left upper lobe. No pleural effusion. IMPRESSION: 1. Residual but improving left lower lobe infiltrate. 2. New 1.8 cm nodule at the periphery of the left upper lobe. Possibly related to a calcified pleural plaque. Ongoing follow-up recommended to exclude the development of a new focus of cavitation.
--- NOTE | 2023-04-17 07:49 | P.PN ---
Subjective Progress Note Date: 04/16/23 Principal diagnosis: Pneumonia This patient is a 87-year-old male with a past medical history significant for COPD pneumonia patient presenting to the hospital for evaluation of increasing shortness of breath patient mention has not been feeling well for about a week and apparently has been diagnosed with a COVID-19 when the patient was evaluated in [facility] ER on 04/06/2023, patient did test positive for covid 19, CT chest with scattered infected more on the left lower lobe and did have elevated procalcitonin. On today's evaluation that is 04/16/2023, the patient denies having any fever or any chills, the patient is breathing comfortably on 3 L nasal cannula oxygen, the patient denies having any chest pain shortness of breath or worsening cough no nausea vomiting no abdominal pain or diarrhea. Patient white count is 19.40, creatinine is 1.6. Blood culture has been negative so far sputum not collected. Objective - Vital Signs Vital signs: Vital Signs Temp 97.7 F 04/16/23 09:00 Pulse 115 H 04/16/23 09:00 Resp 18 04/16/23 09:00 BP 124/70 04/16/23 09:00 Pulse Ox 98 04/16/23 09:00 FiO2 Intake & Output 04/15/23 04/16/23 04/16/23 18:59 06:59 18:59 Other: Voiding Method Toilet Toilet # Voids 1 - Exam GENERAL DESCRIPTION: An elderly male lying in bed in no distress RESPIRATORY SYSTEM: Unlabored breathing , decreased breath sounds at bases HEART: S1 S2 regular rate and rhythm , ABDOMEN: Soft , no tenderness EXTREMITIES: No edema feet - Labs CBC & Chem 7: 04/16/23 06:57 04/16/23 06:57 Labs: Abnormal Lab Results - Last 24 Hours (Table) 04/16/23 04/16/23 Range/Units 06:57 06:57 WBC 19.40 H (4.50-10.00) X 10*3/uL RBC 4.00 L (4.40-5.60) X 10*6/uL Hgb 11.5 L (13.0-17.0) d/dL Hct 36.2 L (39.6-50.0) % MCHC 31.8 L (32.0-37.0) d/dL RDW 15.1 H (11.5-14.5) % Neutrophils # 16.00 H (1.80-7.70) X 10*3/uL Eosinophils # 0 L (0.04-0.35) X 10*3/uL BUN 41.1 H (9.0-27.0) mg/dL Creatinine 1.6 H (0.6-1.5) mg/dL Est GFR (CKD-EPI) 41 L (>=60) BUN/Creatinine Ratio 25.69 H (12.00-20.00) Ratio Total Bilirubin <0.2 L (0.3-1.2) mg/dL Albumin/Globulin Ratio 1.56 L (1.60-3.17) Ratio Microbiology - Last 24 Hours (Table) 04/14/23 00:13 Blood Culture - Preliminary Blood 04/14/23 00:00 Blood Culture - Preliminary Blood Assessment and Plan (1) COVID-19 Current Visit: Yes Status: Acute Code(s): U07.1 - COVID-19 SNOMED Code(s): 157817875 (2) Leukocytosis Current Visit: Yes Status: Acute Code(s): D72.829 - ELEVATED WHITE BLOOD CELL COUNT, UNSPECIFIED SNOMED Code(s): 898308496 (3) Pneumonia Current Visit: Yes Status: Acute Code(s): J18.9 - PNEUMONIA, UNSPECIFIED ORGANISM SNOMED Code(s): 980304900 Plan: 1patient present to hospital with increasing shortness of breath which is mult ifactorial in this patient who do have underlying COPD and was diagnosed with a COVID-19 more than a week ago now presenting with worsening respiratory symptoms did have a low-grade fever elevated white count predominant left lower lobe infiltrate with a question of possible secondary bacterial pneumonia. 2patient with a penicillin allergy that will limit the number of antibiotics safe to use. 3patient seem to have shown some clinical improvement and we will keep the patient on Rocephin and Zithromax. 4leukocytosis more likely steroid related and will be monitored closely chest x-ray in the a.m. has been requested Dictation was produced using [employer] dictation software. please excuse any g rammatical, word or spelling errors.
[2023-04-17] MEDS: amLODIPine 5 MG TAB PO SCH (07:51)
[2023-04-17] MEDS: DEXAMETHASONE SOD PHOSPHATE 10 MG/ML 1 ML VIAL IVP SCH (07:51)
[2023-04-17] MEDS: hydrALAZINE HCL 20 MG/ML 1 ML VIAL IVP PRN (07:51)
[2023-04-17] MEDS: FLUTICASONE 110 MCG INHALER INHALATION SCH ×2 (09:18→20:24)
[2023-04-17] MEDS: ALBUTEROL HFA INHALER INHALATION SCH ×4 (09:18→20:23)
[2023-04-17] MEDS: TIOTROPIUM 2.5 MCG INHALER INHALATION SCH (09:19)
--- NOTE | 2023-04-17 12:36 | P.PN ---
Subjective Progress Note Date: 04/17/23 This is a 87-year-old male patient with known history of COPD who presented emergency department having shortness of breath. The patient was in the hospital approximately week ago and he tested positive for Covid 19 and he was discharged home. Noted at that time, the patient denied having any significant respiratory difficulties and some increased cough. No nausea or emesis. The patient came back and the Covid 19 testing was again positive. The white cell count was at 9.8, hemoglobin is at 10.8, BUN is at 46 and the creatinine is at 1.96 and the patient has chronic kidney disease. Potassium is at 5.8. Legionella urine antigen is negative for now. The rest of the viral screen was also negative. CAT scan of the chest was also done that showed a trace left- sided pleural effusion and areas of patchy scattered peripheral reticular opacities throughout the lungs most prominent in the left. There is concern for an atypical pneumonia although bacterial pneumonia cannot be completely ruled out. There was background emphysema. At home, the patient does not have any maintenance respiratory medications. Uses a nebulizer. He is currently on a termination of Rocephin and Zithromax and is also on Decadron. Patient is also on 2 L O2 nasal cannula with a pulse ox of 95%. No abdominal pain. No nausea or vomiting and there is no altered mentation. Coagulation profile is normal. D-dimer has not been checked. On today's evaluation of 04/15/2023, I'm seeing the patient for a follow-up. The patient is feeling better compared to yesterday. The patient remains on examination Rocephin and Zithromax. The patient is also on Decadron. Noted the patient was positive for Covid 19 for the past 1 week at least. There is suspicion for a superinfection and based on that the patient was covered with accommodation of Rocephin and Zithromax. The labs from today shows a WBC count of 19.5, hematemesis 10.6, renal function is improved compared to yesterday and creatinine is down to 1.68 with a BUN of 45, potassium level is at 5.0 with a sodium level of 139. The patient is known to have advanced COPD. Pulse ox on room air is around 94-95%. No altered mentation. No nausea or vomiting or diarrhea or any other new complaints. 04/16 2023, the patient is feeling well. Patient has no specific complaints. White cell count remains elevated at 19.4 with a hemoglobin of 11.5, BUN is at 41 with a creatinine of 1.6. LFTs are within normal limits. Sodium level is at 140. Pro-calcitonin level is at 0.2. The patient is on 3 L of Oxymizer nasal cannula with a pulse ox of 98%. He is afebrile. No other new complaints otherwise for now. 04/17/2023, seeing the patient for a follow-up. The patient had a follow-up chest x-ray today that showed improvement in left basilar infiltrate. The patient otherwise is stable. He has no specific complaints. No fever or chills. He does have no other changes bilaterally that needs to be followed up on outpatient basis and this could be essentially post Covid/parapneumonic in nature. Please refer to the CAT scan of the chest. Otherwise, the white cell count is at 19.4 from yesterday with a hemoglobin of 11.5, creatinine from is at 1.6. The patient remains on Decadron 6 mg IV 24 hours. The patient remains on IV Rocephin. Bronchodilators are still being administered in the form of a Ventolin HFA around the clock 4 times a day and he is also on Spiriva 2 puffs once a day. Objective - Vital Signs Vital signs: Vital Signs Temp 98.0 F 04/17/23 07:33 Pulse 96 04/17/23 07:51 Resp 18 04/17/23 07:51 BP 186/99 04/17/23 07:33 Pulse Ox 98 04/17/23 07:33 FiO2 Intake & Output 04/16/23 04/17/23 04/17/23 18:59 06:59 18:59 Other: Voiding Method Toilet Toilet Toilet # Voids 3 2 - Exam General appearance: alert, in no apparent distress, the patient is currently on 3 L O2 with a pulse ox of 98%. Breathing is nonlabored Head exam: Present: atraumatic, normocephalic, normal inspection Eye exam: Present: normal appearance, PERRL, EOMI. Absent: scleral icterus, conjunctival injection, periorbital swelling ENT exam: Present: normal exam, mucous membranes moist Neck exam: Present: normal inspection. Absent: tenderness, meningismus, lymph adenopathy Respiratory exam: Present: rales, accessory muscle use, decreased breath sounds. Absent: respiratory distress, wheezes, rhonchi, stridor Cardiovascular Exam: Present: regular rate, normal rhythm, normal heart sounds. Absent: systolic murmur, diastolic murmur, rubs, gallop, clicks GI/Abdominal exam: Present: soft, normal bowel sounds. Absent: distended, tenderness, guarding, rebound, rigid Extremities exam: Present: normal inspection, full ROM, normal capillary refill. Absent: tenderness, pedal edema, joint swelling, calf tenderness Back exam: Present: normal inspection Neurological exam: Present: alert, oriented X3, CN II-XII intact Psychiatric exam: Present: normal affect, normal mood Skin exam: Present: warm, dry, intact, normal color. Absent: rash - Labs CBC & Chem 7: 04/16/23 06:57 04/16/23 06:57 Labs: Abnormal Lab Results - Last 24 Hours (Table) 04/16/23 04/16/23 Range/Units 06:57 06:57 WBC 19.40 H (4.50-10.00) X 10*3/uL RBC 4.00 L (4.40-5.60) X 10*6/uL Hgb 11.5 L (13.0-17.0) d/dL Hct 36.2 L (39.6-50.0) % MCHC 31.8 L (32.0-37.0) d/dL RDW 15.1 H (11.5-14.5) % Neutrophils # 16.00 H (1.80-7.70) X 10*3/uL Eosinophils # 0 L (0.04-0.35) X 10*3/uL BUN 41.1 H (9.0-27.0) mg/dL Creatinine 1.6 H (0.6-1.5) mg/dL Est GFR (CKD-EPI) 41 L (>=60) BUN/Creatinine Ratio 25.69 H (12.00-20.00) Ratio Total Bilirubin <0.2 L (0.3-1.2) mg/dL Albumin/Globulin Ratio 1.56 L (1.60-3.17) Ratio Microbiology - Last 24 Hours (Table) 04/14/23 00:13 Blood Culture - Preliminary Blood 04/14/23 00:00 Blood Culture - Preliminary Blood Assessment and Plan Plan: Covid 19 infection, diagnosed on 05/03/2023, currently on Decadron 6 mg IV every 24 hours Acute pneumonia with vague patchy but the pulmonary infiltrates more so on the left lower lobe. Consider possibility of a Covid 19 related pneumonia. Superimposed bacterial pneumonia cannot be completely excluded. The patient is currently on IV Rocephin Acute COPD exacerbation secondary to above, improving Acute hypoxic respiratory failure currently on room air oxygen Sinus tachycardia Mild leukocytosis Chronic stage III kidney disease, creatinine is improved compared to yesterday Hyperkalemia with a potassium level of 5.8 Plan Clinically improving Chest x-ray shows limited improvement in left basal pulmonary infiltrate and a left lower lobe pulmonary infiltrate essentially improving We'll continue same treatment Continue Spiriva 2 puffs once a day and albuterol HFA 2 puffs 4 times a day Check pro calcitonin level was checked yesterday and the level was at 0.2 CAT scan of the chest was reviewed and there is a concern for bacterial pneumonia. I do suggest continuing the current antibiotics for now. No evidence of any pulmonary embolism. There are bilateral patchy no other densities that needs to be followed up on outpatient basis Continue Rocephin Continue Decadron 6 mg IV every 24 hours IV fluids at 75 mL an hour of normal saline, switch to KVO Albuterol HFA Monitor potassium level Oxygen supplementation to maintain a saturation above 90% We'll continue to follow
--- NOTE | 2023-04-17 14:54 | P.PN ---
Subjective Progress Note Date: 04/17/23 Principal diagnosis: Pneumonia This patient is a 87-year-old male with a past medical history significant for COPD pneumonia patient presenting to the hospital for evaluation of increasing shortness of breath patient mention has not been feeling well for about a week and apparently has been diagnosed with a COVID-19 when the patient was evaluated in [facility] ER on 04/06/2023, patient did test positive for covid 19, CT chest with scattered infected more on the left lower lobe and did have elevated procalcitonin. On today's evaluation that is 04/17/2023, the patient is afebrile, the patient is breathing comfortably on 3 L nasal cannula oxygen , the patient denies chest pain and patient cough is decreased intensity mostly dry in nature, the patient denies nausea and vomiting no abdominal pain and no diarrhea, Patient white count is 19.40, creatinine is 1.6 as of 04/16/2023. Blood culture has been negative so far sputum not collected. Chest x-ray this morning shows improvement in the left lower lobe infiltrate Objective - Vital Signs Vital signs: Vital Signs Temp 98.0 F 04/17/23 07:33 Pulse 96 04/17/23 07:51 Resp 18 04/17/23 07:51 BP 186/99 04/17/23 07:33 Pulse Ox 98 04/17/23 07:33 FiO2 Intake & Output 04/16/23 04/17/23 04/17/23 18:59 06:59 18:59 Other: Voiding Method Toilet Toilet Toilet # Voids 3 2 - Exam GENERAL DESCRIPTION: An elderly male lying in bed in no distress RESPIRATORY SYSTEM: Unlabored breathing , decreased breath sounds at bases HEART: S1 S2 regular rate and rhythm , ABDOMEN: Soft , no tenderness EXTREMITIES: No edema feet - Labs CBC & Chem 7: 04/16/23 06:57 04/16/23 06:57 Labs: Microbiology - Last 24 Hours (Table) 04/14/23 00:13 Blood Culture - Preliminary Blood 04/14/23 00:00 Blood Culture - Preliminary Blood Assessment and Plan (1) COVID-19 Current Visit: Yes Status: Acute Code(s): U07.1 - COVID-19 SNOMED Code(s): 137292732 (2) Leukocytosis Current Visit: Yes Status: Acute Code(s): D72.829 - ELEVATED WHITE BLOOD CELL COUNT, UNSPECIFIED SNOMED Code(s): 774514427 (3) Pneumonia Current Visit: Yes Status: Acute Code(s): J18.9 - PNEUMONIA, UNSPECIFIED ORGANISM SNOMED Code(s): 562335671 Plan: 1patient present to hospital with increasing shortness of breath which is multifactorial in this patient who do have underlying COPD and was diagnosed with a COVID-19 more than a week ago now presenting with worsening respiratory symptoms did have a low-grade fever elevated white count predominant left lower lobe infiltrate with a question of possible secondary bacterial pneumonia. 2patient with a penicillin allergy that will limit the number of antibiotics safe to use. 3patient seem to have shown some clinical improvement and did have improvement in the chest x-ray as well we will keep the patient on Rocephin and plan to finish therapy with oral Ceftin 4leukocytosis more likely steroid related and will be monitored closely Dictation was produced using [employer] dictation software. please excuse any grammatical, word or spelling errors.
[2023-04-17] MEDS: ATORVASTATIN 20 MG TAB PO SCH (20:09)
[2023-04-18] MEDS: ACETAMINOPHEN TAB 325 MG TAB PO PRN (01:29)
[2023-04-18] MEDS: DEXAMETHASONE SOD PHOSPHATE 10 MG/ML 1 ML VIAL IVP SCH (08:43)
[2023-04-18] MEDS: amLODIPine 5 MG TAB PO SCH (08:43)
[2023-04-18 08:52] VITALS: BMI 20.7
[2023-04-18] MEDS: FLUTICASONE 110 MCG INHALER INHALATION SCH ×2 (09:09→20:20)
[2023-04-18] MEDS: ALBUTEROL HFA INHALER INHALATION SCH ×4 (09:09→20:20)
[2023-04-18] MEDS: TIOTROPIUM 2.5 MCG INHALER INHALATION SCH (09:10)
[2023-04-18] MEDS: AZITHROMYCIN 500 MG in SODIUM CHLORIDE 0.9% 250 ML IVPB SCH (11:19)
--- NOTE | 2023-04-18 13:09 | P.PN ---
Subjective Progress Note Date: 04/18/23 This is a 87-year-old male patient with known history of COPD who presented emergency department having shortness of breath. The patient was in the hospital approximately week ago and he tested positive for Covid 19 and he was discharged home. Noted at that time, the patient denied having any significant respiratory difficulties and some increased cough. No nausea or emesis. The patient came back and the Covid 19 testing was again positive. The white cell count was at 9.8, hemoglobin is at 10.8, BUN is at 46 and the creatinine is at 1.96 and the patient has chronic kidney disease. Potassium is at 5.8. Legionella urine antigen is negative for now. The rest of the viral screen was also negative. CAT scan of the chest was also done that showed a trace left- sided pleural effusion and areas of patchy scattered peripheral reticular opacities throughout the lungs most prominent in the left. There is concern for an atypical pneumonia although bacterial pneumonia cannot be completely ruled out. There was background emphysema. At home, the patient does not have any maintenance respiratory medications. Uses a nebulizer. He is currently on a termination of Rocephin and Zithromax and is also on Decadron. Patient is also on 2 L O2 nasal cannula with a pulse ox of 95%. No abdominal pain. No nausea or vomiting and there is no altered mentation. Coagulation profile is normal. D-dimer has not been checked. On today's evaluation of 04/15/2023, I'm seeing the patient for a follow-up. The patient is feeling better compared to yesterday. The patient remains on examination Rocephin and Zithromax. The patient is also on Decadron. Noted the patient was positive for Covid 19 for the past 1 week at least. There is suspicion for a superinfection and based on that the patient was covered with accommodation of Rocephin and Zithromax. The labs from today shows a WBC count of 19.5, hematemesis 10.6, renal function is improved compared to yesterday and creatinine is down to 1.68 with a BUN of 45, potassium level is at 5.0 with a sodium level of 139. The patient is known to have advanced COPD. Pulse ox on room air is around 94-95%. No altered mentation. No nausea or vomiting or diarrhea or any other new complaints. 04/16 2023, the patient is feeling well. Patient has no specific complaints. White cell count remains elevated at 19.4 with a hemoglobin of 11.5, BUN is at 41 with a creatinine of 1.6. LFTs are within normal limits. Sodium level is at 140. Pro-calcitonin level is at 0.2. The patient is on 3 L of Oxymizer nasal cannula with a pulse ox of 98%. He is afebrile. No other new complaints otherwise for now. 04/17/2023, seeing the patient for a follow-up. The patient had a follow-up chest x-ray today that showed improvement in left basilar infiltrate. The patient otherwise is stable. He has no specific complaints. No fever or chills. He does have no other changes bilaterally that needs to be followed up on outpatient basis and this could be essentially post Covid/parapneumonic in nature. Please refer to the CAT scan of the chest. Otherwise, the white cell count is at 19.4 from yesterday with a hemoglobin of 11.5, creatinine from is at 1.6. The patient remains on Decadron 6 mg IV 24 hours. The patient remains on IV Rocephin. Bronchodilators are still being administered in the form of a Ventolin HFA around the clock 4 times a day and he is also on Spiriva 2 puffs once a day. On today's evaluation of 04/18/2023, the patient is stable on 3 L of oxygen by nasal cannula with a pulse ox of 97%. No new complaints. White cell count at 19.4 with a hemoglobin 11.5, BUN is 41 with a creatinine 1.6 which is essentially stable and the patient remains on the same treatment which includes IV Rocephin. Suspected bacterial pneumonia, Decadron regarding the Covid 19 infection. He remains on Spiriva and albuterol HFA [id number]. White cell count remains elevated. The blood cultures are negative. Objective - Vital Signs Vital signs: Vital Signs Temp 97.8 F 04/18/23 07:15 Pulse 106 H 04/18/23 07:15 Resp 20 04/18/23 07:15 BP 158/91 04/18/23 07:15 Pulse Ox 97 04/18/23 07:15 FiO2 Intake & Output 04/17/23 04/18/23 04/18/23 18:59 06:59 18:59 Intake Total 480 Balance 480 Weight 63.503 kg Intake: Oral 480 Other: Voiding Method Toilet # Voids 2 2 1 - Exam General appearance: alert, in no apparent distress, the patient is currently on 3 L O2 with a pulse ox of 98%. Breathing is nonlabored Head exam: Present: atraumatic, normocephalic, normal inspection Eye exam: Present: normal appearance, PERRL, EOMI. Absent: scleral icterus, conjunctival injection, periorbital swelling ENT exam: Present: normal exam, mucous membranes moist Neck exam: Present: normal inspection. Absent: tenderness, meningismus, ly mphadenopathy Respiratory exam: Present: rales, accessory muscle use, decreased breath sounds. Absent: respiratory distress, wheezes, rhonchi, stridor Cardiovascular Exam: Present: regular rate, normal rhythm, normal heart sounds. Absent: systolic murmur, diastolic murmur, rubs, gallop, clicks GI/Abdominal exam: Present: soft, normal bowel sounds. Absent: distended, tenderness, guarding, rebound, rigid Extremities exam: Present: normal inspection, full ROM, normal capillary refill. Absent: tenderness, pedal edema, joint swelling, calf tenderness Back exam: Present: normal inspection Neurological exam: Present: alert, oriented X3, CN II-XII intact Psychiatric exam: Present: normal affect, normal mood Skin exam: Present: warm, dry, intact, normal color. Absent: rash - Labs CBC & Chem 7: 04/16/23 06:57 04/16/23 06:57 Labs: Microbiology - Last 24 Hours (Table) 04/14/23 00:13 Blood Culture - Preliminary Blood 04/14/23 00:00 Blood Culture - Preliminary Blood Assessment and Plan Plan: Covid 19 infection, diagnosed on 05/03/2023, currently on Decadron 6 mg IV every 24 hours Acute pneumonia with vague patchy but the pulmonary infiltrates more so on the l eft lower lobe. Consider possibility of a Covid 19 related pneumonia. Superimposed bacterial pneumonia cannot be completely excluded. The patient is currently on IV Rocephin Acute COPD exacerbation secondary to above, improving Acute hypoxic respiratory failure currently on room air oxygen Sinus tachycardia Mild leukocytosis Chronic stage III kidney disease, creatinine is improved compared to yesterday Hyperkalemia with a potassium level of 5.8 Plan Continue same treatment Clinically improving slowly Chest x-ray shows limited improvement in left basal pulmonary infiltrate and a left lower lobe pulmonary infiltrate essentially improving We'll continue same treatment Continue Spiriva 2 puffs once a day and albuterol HFA 2 puffs 4 times a day Check pro calcitonin level was checked yesterday and the level was at 0.2 CAT scan of the chest was reviewed and there is a concern for bacterial pneumonia. I do suggest continuing the current antibiotics for now. No evidence of any pulmonary embolism. There are bilateral patchy no other densities that needs to be followed up on outpatient basis Continue Rocephin Continue Decadron 6 mg IV every 24 hours IV fluids KVO Albuterol HFA Oxygen supplementation to maintain a saturation above 90% We'll continue to follow
--- NOTE | 2023-04-18 16:16 | P.PN ---
Subjective Progress Note Date: 04/18/23 Principal diagnosis: Pneumonia This patient is a 87-year-old male with a past medical history significant for COPD pneumonia patient presenting to the hospital for evaluation of increasing shortness of breath patient mention has not been feeling well for about a week and apparently has been diagnosed with a COVID-19 when the patient was evaluated in [facility] ER on 04/06/2023, patient did test positive for covid 19, CT chest with scattered infected more on the left lower lobe and did have elevated procalcitonin. On today's evaluation that is 04/18/2023, the patient remains to be afebrile, the patient is breathing comfortably on 3 L oxygen , the patient denies chest pain and patient cough is decreased intensity mostly dry in nature, the patient denies nausea and vomiting no abdominal pain and no diarrhea, Patient white count is 19.40, creatinine is 1.6 as of 04/16/2023. No blood draw today Blood culture has been negative so far sputum not collected. Chest x-ray this morning shows improvement in the left lower lobe infiltrate Objective - Vital Signs Vital signs: Vital Signs Temp 97.8 F 04/18/23 07:15 Pulse 106 H 04/18/23 08:00 Resp 20 04/18/23 08:00 BP 158/91 04/18/23 07:15 Pulse Ox 97 04/18/23 07:15 FiO2 Intake & Output 04/17/23 04/18/23 04/18/23 18:59 06:59 18:59 Intake Total 480 Balance 480 Weight 63.503 kg Intake: Oral 480 Other: Voiding Method Toilet Toilet # Voids 2 2 1 - Exam GENERAL DESCRIPTION: An elderly male lying in bed in no distress RESPIRATORY SYSTEM: Unlabored breathing , decreased breath sounds at bases HEART: S1 S2 regular rate and rhythm , ABDOMEN: Soft , no tenderness EXTREMITIES: No edema feet - Labs CBC & Chem 7: 04/16/23 06:57 04/16/23 06:57 Labs: Microbiology - Last 24 Hours (Table) 04/14/23 00:13 Blood Culture - Preliminary Blood 04/14/23 00:00 Blood Culture - Preliminary Blood Assessment and Plan (1) COVID-19 Current Visit: Yes Status: Acute Code(s): U07.1 - COVID-19 SNOMED Code(s): 424288624 (2) Leukocytosis Current Visit: Yes Status: Acute Code(s): D72.829 - ELEVATED WHITE BLOOD CELL COUNT, UNSPECIFIED SNOMED Code(s): 598802252 (3) Pneumonia Current Visit: Yes Status: Acute Code(s): J18.9 - PNEUMONIA, UNSPECIFIED ORGANISM SNOMED Code(s): 976759081 Plan: 1patient present to hospital with increasing shortness of breath which is multifactorial in this patient who do have underlying COPD and was diagnosed with a COVID-19 more than a week ago now presenting with worsening respiratory symptoms did have a low-grade fever elevated white count predominant left lower lobe infiltrate with a question of possible secondary bacterial pneumonia. 2patient with a penicillin allergy that will limit the number of antibiotics safe to use. 3patient seem to have shown some clinical improvement and did have improvement in the chest x-ray as well we will keep the patient on Rocephin and azithromycin in view of clinical response 4leukocytosis more likely steroid related and will repeat CBC CRP and a pro- consistent with a.m. lab Dictation was produced using [employer] dictation software. please excuse any grammatical, word or spelling errors.
[2023-04-18] MEDS: ATORVASTATIN 20 MG TAB PO SCH (21:15)
[2023-04-18] MEDS: hydrALAZINE HCL 20 MG/ML 1 ML VIAL IVP PRN (21:24)
--- NOTE | 2023-04-18 23:22 | PN ---
PROGRESS NOTE SUBJECTIVE: This is an 87-year-old white male, remains on Ventolin inhalers, Norvasc for hypertension, Ventolin inhaler, Flovent inhaler for breathing, history of refractory breathing. He has positive COVID, got Decadron, azithromycin. 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 He is feeling better every day. He has positive COVID, possible secondary pneumonia. OBJECTIVE: VITAL SIGNS: He is on 100% on 3 L. Blood pressure 120s over 70s, temp 98.4, pulse is low 100s, respiratory rate 17 to 20, and temp 98.2. CARDIOVASCULAR: S1, S2. LUNGS: Scattered rhonchi and wheeze. HEMATOLOGY: Negative for Homans. PSYCH: Fair mood and affect. GI: Soft. Blood cultures are negative. PLAN: Wean off oxygen. He has low procalcitonin titers and need antibiotics. Stop the Unasyn. White count high at 19.4 still. He feels better. Continue current treatment, COVID-19 pneumonia protocol. Wait for Pulmonary recommendation. Blood pressure control with medications will be done. His blood pressure is little high today. Plan to continue current treatments as mentioned above. Treat hypertension as it occurs. Monitor white count, monitor his dehydration. Tiredness improved secondary to yesterday. Hyperkalemia will have to be addressed sinus tachycardia secondary to COPD, hypoxemic respiratory failure, acute pneumonia, COVID-19. PROGNOSIS: Guarded. Please see further Orders. MMODL / IJN: [id number] /
[2023-04-19] MEDS: SODIUM CHLORIDE 0.9% 1,000 ML IV SCH ×2 (00:34→05:14)
[2023-04-19] MEDS: hydrALAZINE HCL 20 MG/ML 1 ML VIAL IVP PRN (02:24)
[2023-04-19] MEDS: ALBUTEROL HFA INHALER INHALATION SCH ×4 (08:43→21:27)
[2023-04-19] MEDS: TIOTROPIUM 2.5 MCG INHALER INHALATION SCH (08:43)
[2023-04-19] MEDS: FLUTICASONE 110 MCG INHALER INHALATION SCH ×2 (08:43→21:28)
[2023-04-19] MEDS: DEXAMETHASONE SOD PHOSPHATE 10 MG/ML 1 ML VIAL IVP SCH (09:15)
[2023-04-19] MEDS: amLODIPine 5 MG TAB PO SCH (09:15)
[2023-04-19] MEDS: AZITHROMYCIN 500 MG in SODIUM CHLORIDE 0.9% 250 ML IVPB SCH (09:16)
[2023-04-19 11:22] LABS: Basophils # (A) 0.01 X 10*3/uL (0.00-0.10); Basophils % (A) 0.1 %; Eosinophils # (A) 0.02 X 10*3/uL (0.04-0.35); Eosinophils % (A) 0.2 %; HCT 32.8 % (39.6-50.0); HGB 10.3 d/dL (13.0-17.0); Lymphocytes # (A) 2.37 X 10*3/uL (0.90-5.00); MCH 28.5 pg (27.0-32.0); MCHC 31.4 d/dL (32.0-37.0); MCV 90.9 FL (80.0-97.0); Mean Platelet Volume 9.7 FL (9.5-12.2); Monocytes # (A) 0.61 X 10*3/uL (0.20-1.00); Monocytes % (A) 5.4 %; NRBC Per 100 WBC 0 X 10*3/uL (0.00-0.01); Neutrophils # (A) 8.23 X 10*3/uL (1.80-7.70); Neutrophils % (A) 72.9 %; Platelet Count 269 X 10*3/uL (140-440); RBC 3.61 X 10*6/uL (4.40-5.60); RDW 15.2 % (11.5-14.5); WBC 11.29 X 10*3/uL (4.50-10.00)
[2023-04-19 11:46] LABS: BUN/Creat Ratio 33.67 Ratio (12.00-20.00); Blood Urea Nitrogen 50.5 mg/dL (9.0-27.0); Calcium 8.9 mg/dL (8.7-10.3); Carbon Dioxide 22.1 mmol/L (21.6-31.8); Chloride 107 mmol/L (96-109); Glucose 80 mg/dL (70-110); Potassium 5.1 mmol/L (3.5-5.5); Sodium 140 mmol/L (135-145)
--- NOTE | 2023-04-19 12:39 | P.PN ---
Subjective Progress Note Date: 04/19/23 This is a 87-year-old male patient with known history of COPD who presented emergency department having shortness of breath. The patient was in the hospital approximately week ago and he tested positive for Covid 19 and he was discharged home. Noted at that time, the patient denied having any significant respiratory difficulties and some increased cough. No nausea or emesis. The patient came back and the Covid 19 testing was again positive. The white cell count was at 9.8, hemoglobin is at 10.8, BUN is at 46 and the creatinine is at 1.96 and the patient has chronic kidney disease. Potassium is at 5.8. Legionella urine antigen is negative for now. The rest of the viral screen was also negative. CAT scan of the chest was also done that showed a trace left- sided pleural effusion and areas of patchy scattered peripheral reticular opacities throughout the lungs most prominent in the left. There is concern for an atypical pneumonia although bacterial pneumonia cannot be completely ruled out. There was background emphysema. At home, the patient does not have any maintenance respiratory medications. Uses a nebulizer. He is currently on a termination of Rocephin and Zithromax and is also on Decadron. Patient is also on 2 L O2 nasal cannula with a pulse ox of 95%. No abdominal pain. No nausea or vomiting and there is no altered mentation. Coagulation profile is normal. D-dimer has not been checked. On today's evaluation of 04/15/2023, I'm seeing the patient for a follow-up. The patient is feeling better compared to yesterday. The patient remains on examination Rocephin and Zithromax. The patient is also on Decadron. Noted the patient was positive for Covid 19 for the past 1 week at least. There is suspicion for a superinfection and based on that the patient was covered with accommodation of Rocephin and Zithromax. The labs from today shows a WBC count of 19.5, hematemesis 10.6, renal function is improved compared to yesterday and creatinine is down to 1.68 with a BUN of 45, potassium level is at 5.0 with a sodium level of 139. The patient is known to have advanced COPD. Pulse ox on room air is around 94-95%. No altered mentation. No nausea or vomiting or diarrhea or any other new complaints. 04/16 2023, the patient is feeling well. Patient has no specific complaints. White cell count remains elevated at 19.4 with a hemoglobin of 11.5, BUN is at 41 with a creatinine of 1.6. LFTs are within normal limits. Sodium level is at 140. Pro-calcitonin level is at 0.2. The patient is on 3 L of Oxymizer nasal cannula with a pulse ox of 98%. He is afebrile. No other new complaints otherwise for now. 04/17/2023, seeing the patient for a follow-up. The patient had a follow-up chest x-ray today that showed improvement in left basilar infiltrate. The patient otherwise is stable. He has no specific complaints. No fever or chills. He does have no other changes bilaterally that needs to be followed up on outpatient basis and this could be essentially post Covid/parapneumonic in nature. Please refer to the CAT scan of the chest. Otherwise, the white cell count is at 19.4 from yesterday with a hemoglobin of 11.5, creatinine from is at 1.6. The patient remains on Decadron 6 mg IV 24 hours. The patient remains on IV Rocephin. Bronchodilators are still being administered in the form of a Ventolin HFA around the clock 4 times a day and he is also on Spiriva 2 puffs once a day. On today's evaluation of 04/18/2023, the patient is stable on 3 L of oxygen by nasal cannula with a pulse ox of 97%. No new complaints. White cell count at 19.4 with a hemoglobin 11.5, BUN is 41 with a creatinine 1.6 which is essentially stable and the patient remains on the same treatment which includes IV Rocephin. Suspected bacterial pneumonia, Decadron regarding the Covid 19 infection. He remains on Spiriva and albuterol HFA [id number]. White cell count remains elevated. The blood cultures are negative. 04/19/2023, the patient gradually improving. No new complaints. Remains on 3 L. He remains on Zithromax. Remains on Decadron. No cough or sputum production. The white cell count is improved and is currently down to 11.2, hemoglobin is at 10.3, platelet count is at 269, BUN is at 50 with a creatinine of 1.5 and a sodium levels of 140. Objective - Vital Signs Vital signs: Vital Signs Temp 97.7 F 04/19/23 06:58 Pulse 105 H 04/19/23 06:58 Resp 18 04/19/23 06:58 BP 113/69 04/19/23 06:58 Pulse Ox 97 04/19/23 08:52 FiO2 Intake & Output 04/18/23 04/19/23 04/19/23 18:59 06:59 18:59 Intake Total 480 Balance 480 Weight 63.503 kg Intake: Oral 480 Other: Voiding Method Toilet Toilet # Voids 2 2 - Exam General appearance: alert, in no apparent distress, the patient is currently on 3 L O2 with a pulse ox of 98%. Breathing is nonlabored Head exam: Present: atraumatic, normocephalic, normal inspection Eye exam: Present: normal appearance, PERRL, EOMI. Absent: scleral icterus, conjunctival injection, periorbital swelling ENT exam: Present: normal exam, mucous membranes moist Neck exam: Present: normal inspection. Absent: tenderness, meningismus, lymphadenopathy Respiratory exam: Present: rales, accessory muscle use, decreased breath sounds. Absent: respiratory distress, wheezes, rhonchi, stridor Cardiovascular Exam: Present: regular rate, normal rhythm, normal heart sounds. Absent: systolic murmur, diastolic murmur, rubs, gallop, clicks GI/Abdominal exam: Present: soft, normal bowel sounds. Absent: distended, tende rness, guarding, rebound, rigid Extremities exam: Present: normal inspection, full ROM, normal capillary refill. Absent: tenderness, pedal edema, joint swelling, calf tenderness Back exam: Present: normal inspection Neurological exam: Present: alert, oriented X3, CN II-XII intact Psychiatric exam: Present: normal affect, normal mood Skin exam: Present: warm, dry, intact, normal color. Absent: rash - Labs CBC & Chem 7: 04/19/23 05:54 04/19/23 05:54 Assessment and Plan Plan: Covid 19 infection, diagnosed on 05/03/2023, currently on Decadron 6 mg IV every 24 hours, improving Acute pneumonia with vague patchy but the pulmonary infiltrates more so on the left lower lobe. Consider possibility of a Covid 19 related pneumonia. Superimposed bacterial pneumonia cannot be completely excluded. The patient is currently on IV Rocephin, improving Acute COPD exacerbation secondary to above, improving Acute hypoxic respiratory failure currently on room air oxygen Sinus tachycardia Mild leukocytosis, improving Chronic stage III kidney disease, creatinine is improved compared to yesterday Hyperkalemia with a potassium level of 5.8 Plan Continue same treatment Clinically improving slowly Lites echoes improving Renal function is improving Chest x-ray shows limited improvement in left basal pulmonary infiltrate and a left lower lobe pulmonary infiltrate essentially improving We'll continue same treatment Continue Spiriva 2 puffs once a day and albuterol HFA 2 puffs 4 times a day Check pro calcitonin level was checked yesterday and the level was at 0.2 CAT scan of the chest was reviewed and there is a concern for bacterial pneumonia. I do suggest continuing the current antibiotics for now. No evidence of any pulmonary embolism. There are bilateral patchy no other densities that needs to be followed up on outpatient basis Continue Rocephin Continue Decadron 6 mg IV every 24 hours IV fluids KVO Albuterol HFA Oxygen supplementation to maintain a saturation above 90% We'll continue to follow
--- NOTE | 2023-04-19 12:46 | P.PN ---
Subjective Progress Note Date: 04/19/23 Principal diagnosis: Pneumonia This patient is a 87-year-old male with a past medical history significant for COPD pneumonia patient presenting to the hospital for evaluation of increasing shortness of breath patient mention has not been feeling well for about a week and apparently has been diagnosed with a COVID-19 when the patient was evaluated in [facility] ER on 04/06/2023, patient did test positive for covid 19, CT chest with scattered infected more on the left lower lobe and did have elevated procalcitonin. On today's evaluation that is 04/19/2023, the patient denies any fever or any chills, the patient is breathing comfortably on 3 L cannula oxygen, the patient denies chest pain patient cough has decreased in intensity, the patient denies nausea and vomiting no abdominal pain and no diarrhea, Patient white count is down to 11.29, creatinine is 1.5 Blood culture has been negative so far sputum not collected. Chest x-ray 04/17/2023 shows improvement in the left lower lobe infiltrate Objective - Vital Signs Vital signs: Vital Signs Temp 97.7 F 04/19/23 06:58 Pulse 105 H 04/19/23 06:58 Resp 18 04/19/23 06:58 BP 113/69 04/19/23 06:58 Pulse Ox 97 04/19/23 08:52 FiO2 Intake & Output 04/18/23 04/19/23 04/19/23 18:59 06:59 18:59 Intake Total 480 Balance 480 Weight 63.503 kg Intake: Oral 480 Other: Voiding Method Toilet Toilet # Voids 2 2 - Exam GENERAL DESCRIPTION: An elderly male lying in bed in no distress RESPIRATORY SYSTEM: Unlabored breathing , decreased breath sounds at bases HEART: S1 S2 regular rate and rhythm , ABDOMEN: Soft , no tenderness EXTREMITIES: No edema feet - Labs CBC & Chem 7: 04/19/23 05:54 04/19/23 05:54 Labs: Abnormal Lab Results - Last 24 Hours (Table) 04/19/23 04/19/23 Range/Units 05:54 05:54 WBC 11.29 H (4.50-10.00) X 10*3/uL RBC 3.61 L (4.40-5.60) X 10*6/uL Hgb 10.3 L (13.0-17.0) d/dL Hct 32.8 L (39.6-50.0) % MCHC 31.4 L (32.0-37.0) d/dL RDW 15.2 H (11.5-14.5) % Neutrophils # 8.23 H (1.80-7.70) X 10*3/uL Eosinophils # 0.02 L (0.04-0.35) X 10*3/uL BUN 50.5 H (9.0-27.0) mg/dL Est GFR (CKD-EPI) 44 L (>=60) BUN/Creatinine Ratio 33.67 H (12.00-20.00) Ratio C-Reactive Protein 1.80 H (0.00-0.80) mg/dL Assessment and Plan (1) COVID-19 Current Visit: Yes Status: Acute Code(s): U07.1 - COVID-19 SNOMED Code(s): 204796899 (2) Leukocytosis Current Visit: Yes Status: Acute Code(s): D72.829 - ELEVATED WHITE BLOOD CELL COUNT, UNSPECIFIED SNOMED Code(s): 384698964 (3) Pneumonia Current Visit: Yes Status: Acute Code(s): J18.9 - PNEUMONIA, UNSPECIFIED ORGANISM SNOMED Code(s): 024552964 Plan: 1patient present to hospital with increasing shortness of breath which is multifactorial in this patient who do have underlying COPD and was diagnosed with a COVID-19 more than a week ago now presenting with worsening respiratory symptoms did have a low-grade fever elevated white count predominant left lower lobe infiltrate with a question of possible secondary bacterial pneumonia. 2patient with a penicillin allergy that will limit the number of antibiotics safe to use. 3patient seem to have shown some clinical improvement and did have improvement in the chest x-ray as well we will keep the patient on Rocephin and azithromycin 4leukocytosis more likely steroid related and the patient white count is trending down and will be monitored closely Dictation was produced using [employer] dictation software. please excuse any grammatical, word or spelling errors.
[2023-04-19] MEDS: atenoloL 25 MG TAB PO SCH ×2 (13:12→21:38)
[2023-04-19] MEDS: ATORVASTATIN 20 MG TAB PO SCH (21:38)
[2023-04-19] MEDS: ACETAMINOPHEN TAB 325 MG TAB PO PRN (23:58)
[2023-04-20] MEDS: SODIUM CHLORIDE 0.9% 1,000 ML IV SCH (06:48)
[2023-04-20] MEDS: FLUTICASONE 110 MCG INHALER INHALATION SCH ×2 (07:46→20:39)
[2023-04-20] MEDS: TIOTROPIUM 2.5 MCG INHALER INHALATION SCH (07:46)
[2023-04-20] MEDS: ALBUTEROL HFA INHALER INHALATION SCH ×4 (07:46→20:39)
[2023-04-20] MEDS: DEXAMETHASONE SOD PHOSPHATE 10 MG/ML 1 ML VIAL IVP SCH (09:36)
[2023-04-20] MEDS: amLODIPine 5 MG TAB PO SCH (09:36)
[2023-04-20] MEDS: atenoloL 25 MG TAB PO SCH ×2 (09:36→21:10)
[2023-04-20] MEDS: AZITHROMYCIN 500 MG in SODIUM CHLORIDE 0.9% 250 ML IVPB SCH (10:45)
--- NOTE | 2023-04-20 11:19 | P.PN ---
Subjective Progress Note Date: 04/20/23 Principal diagnosis: Pneumonia This patient is a 87-year-old male with a past medical history significant for COPD pneumonia patient presenting to the hospital for evaluation of increasing shortness of breath patient mention has not been feeling well for about a week and apparently has been diagnosed with a COVID-19 when the patient was evaluated in [facility] ER on 04/06/2023, patient did test positive for covid 19, CT chest with scattered infected more on the left lower lobe and did have elevated procalcitonin. On today's evaluation that is 04/20/2023, the patient remains to be afebrile, the patient is breathing comfortably on 2 lesion is occasional oxygen , the patient denies chest pain , the patient cough has decreased in intensity , the patient denies nausea or vomiting , patient denies abdominal pain and no diarrhea has been reported, Patient white count is down to 11.29, creatinine is 1.5, as of 04/19/2023 Blood culture has been negative so far sputum not collected. Chest x-ray 04/17/2023 shows improvement in the left lower lobe infiltrate Objective - Vital Signs Vital signs: Vital Signs Temp 97.9 F 04/20/23 07:37 Pulse 75 04/20/23 07:37 Resp 18 04/20/23 07:37 BP 159/88 04/20/23 07:37 Pulse Ox 96 04/20/23 07:46 FiO2 Intake & Output 04/19/23 04/20/23 04/20/23 18:59 06:59 18:59 Intake Total 120 Balance 120 Intake: IV 120 Sodium Chloride 0.9% 1, 120 000 ml @ 10 mls/hr IV . Q24H [facility] Rx#:[id number] Other: Voiding Method Toilet # Voids 3 - Exam GENERAL DESCRIPTION: An elderly male lying in bed in no distress RESPIRATORY SYSTEM: Unlabored breathing , decreased breath sounds at bases HEART: S1 S2 regular rate and rhythm , ABDOMEN: Soft , no tenderness EXTREMITIES: No edema feet - Labs CBC & Chem 7: 04/19/23 05:54 04/19/23 05:54 Labs: Abnormal Lab Results - Last 24 Hours (Table) 04/19/23 04/19/23 Range/Units 05:54 05:54 WBC 11.29 H (4.50-10.00) X 10*3/uL RBC 3.61 L (4.40-5.60) X 10*6/uL Hgb 10.3 L (13.0-17.0) d/dL Hct 32.8 L (39.6-50.0) % MCHC 31.4 L (32.0-37.0) d/dL RDW 15.2 H (11.5-14.5) % Neutrophils # 8.23 H (1.80-7.70) X 10*3/uL Eosinophils # 0.02 L (0.04-0.35) X 10*3/uL BUN 50.5 H (9.0-27.0) mg/dL Est GFR (CKD-EPI) 44 L (>=60) BUN/Creatinine Ratio 33.67 H (12.00-20.00) Ratio C-Reactive Protein 1.80 H (0.00-0.80) mg/dL Microbiology - Last 24 Hours (Table) 04/14/23 00:13 Blood Culture - Final Blood 04/14/23 00:00 Blood Culture - Final Blood Assessment and Plan (1) COVID-19 Current Visit: Yes Status: Acute Code(s): U07.1 - COVID-19 SNOMED Code(s): 092630400 (2) Leukocytosis Current Visit: Yes Status: Acute Code(s): D72.829 - ELEVATED WHITE BLOOD CELL COUNT, UNSPECIFIED SNOMED Code(s): 066762730 (3) Pneumonia Current Visit: Yes Status: Acute Code(s): J18.9 - PNEUMONIA, UNSPECIFIED ORGANISM SNOMED Code(s): 376937384 Plan: 1patient present to hospital with increasing shortness of breath which is m ultifactorial in this patient who do have underlying COPD and was diagnosed with a COVID-19 more than a week ago now presenting with worsening respiratory symptoms did have a low-grade fever elevated white count predominant left lower lobe infiltrate with a question of possible secondary bacterial pneumonia. 2patient with a penicillin allergy that will limit the number of antibiotics safe to use. 3leukocytosis more likely steroid related and the patient white count is trending down and will be monitored closely 4-patient seem to have shown some clinical improvement and did have improvement in the chest x-ray as , plan is to continue the patient on Rocephin and azithromycin and transitioned to short course of Ceftin on discharge Dictation was produced using [employer] dictation software. please excuse any grammatical, word or spelling errors. Time with Patient: Less than 30
--- NOTE | 2023-04-20 12:21 | P.PN ---
Subjective Progress Note Date: 04/20/23 This is a 87-year-old male patient with known history of COPD who presented emergency department having shortness of breath. The patient was in the hospital approximately week ago and he tested positive for Covid 19 and he was discharged home. Noted at that time, the patient denied having any significant respiratory difficulties and some increased cough. No nausea or emesis. The patient came back and the Covid 19 testing was again positive. The white cell count was at 9.8, hemoglobin is at 10.8, BUN is at 46 and the creatinine is at 1.96 and the patient has chronic kidney disease. Potassium is at 5.8. Legionella urine antigen is negative for now. The rest of the viral screen was also negative. CAT scan of the chest was also done that showed a trace left- sided pleural effusion and areas of patchy scattered peripheral reticular opacities throughout the lungs most prominent in the left. There is concern for an atypical pneumonia although bacterial pneumonia cannot be completely ruled out. There was background emphysema. At home, the patient does not have any maintenance respiratory medications. Uses a nebulizer. He is currently on a termination of Rocephin and Zithromax and is also on Decadron. Patient is also on 2 L O2 nasal cannula with a pulse ox of 95%. No abdominal pain. No nausea or vomiting and there is no altered mentation. Coagulation profile is normal. D-dimer has not been checked. On today's evaluation of 04/15/2023, I'm seeing the patient for a follow-up. The patient is feeling better compared to yesterday. The patient remains on examination Rocephin and Zithromax. The patient is also on Decadron. Noted the patient was positive for Covid 19 for the past 1 week at least. There is suspicion for a superinfection and based on that the patient was covered with accommodation of Rocephin and Zithromax. The labs from today shows a WBC count of 19.5, hematemesis 10.6, renal function is improved compared to yesterday and creatinine is down to 1.68 with a BUN of 45, potassium level is at 5.0 with a sodium level of 139. The patient is known to have advanced COPD. Pulse ox on room air is around 94-95%. No altered mentation. No nausea or vomiting or diarrhea or any other new complaints. 04/16 2023, the patient is feeling well. Patient has no specific complaints. White cell count remains elevated at 19.4 with a hemoglobin of 11.5, BUN is at 41 with a creatinine of 1.6. LFTs are within normal limits. Sodium level is at 140. Pro-calcitonin level is at 0.2. The patient is on 3 L of Oxymizer nasal cannula with a pulse ox of 98%. He is afebrile. No other new complaints otherwise for now. 04/17/2023, seeing the patient for a follow-up. The patient had a follow-up chest x-ray today that showed improvement in left basilar infiltrate. The patient otherwise is stable. He has no specific complaints. No fever or chills. He does have no other changes bilaterally that needs to be followed up on outpatient basis and this could be essentially post Covid/parapneumonic in nature. Please refer to the CAT scan of the chest. Otherwise, the white cell count is at 19.4 from yesterday with a hemoglobin of 11.5, creatinine from is at 1.6. The patient remains on Decadron 6 mg IV 24 hours. The patient remains on IV Rocephin. Bronchodilators are still being administered in the form of a Ventolin HFA around the clock 4 times a day and he is also on Spiriva 2 puffs once a day. On today's evaluation of 04/18/2023, the patient is stable on 3 L of oxygen by nasal cannula with a pulse ox of 97%. No new complaints. White cell count at 19.4 with a hemoglobin 11.5, BUN is 41 with a creatinine 1.6 which is essentially stable and the patient remains on the same treatment which includes IV Rocephin. Suspected bacterial pneumonia, Decadron regarding the Covid 19 infection. He remains on Spiriva and albuterol HFA [id number]. White cell count remains elevated. The blood cultures are negative. 04/19/2023, the patient gradually improving. No new complaints. Remains on 3 L. He remains on Zithromax. Remains on Decadron. No cough or sputum production. The white cell count is improved and is currently down to 11.2, hemoglobin is at 10.3, platelet count is at 269, BUN is at 50 with a creatinine of 1.5 and a sodium levels of 140. On 04/20/2023, the patient continues to improve. No new complaints. White cell count is also improving. No cough or sputum production. No chest pain. Objective - Vital Signs Vital signs: Vital Signs Temp 97.9 F 04/20/23 07:37 Pulse 75 04/20/23 07:37 Resp 18 04/20/23 07:37 BP 159/88 04/20/23 07:37 Pulse Ox 96 04/20/23 07:46 FiO2 Intake & Output 04/19/23 04/20/23 04/20/23 18:59 06:59 18:59 Intake Total 120 Balance 120 Intake: IV 120 Sodium Chloride 0.9% 1, 120 000 ml @ 10 mls/hr IV . Q24H REPLACED BY [facility] Rx#:[id number] Other: Voiding Method Toilet # Voids 3 - Exam General appearance: alert, in no apparent distress, the patient is currently on 3 L O2 with a pulse ox of 98%. Breathing is nonlabored Head exam: Present: atraumatic, normocephalic, normal inspection Eye exam: Present: normal appearance, PERRL, EOMI. Absent: scleral icterus, conjunctival injection, periorbital swelling ENT exam: Present: normal exam, mucous membranes moist Neck exam: Present: normal inspection. Absent: tenderness, meningismus, lymphadenopathy Respiratory exam: Present: rales, accessory muscle use, decreased breath sounds. Absent: respiratory distress, wheezes, rhonchi, stridor Cardiovascular Exam: Present: regular rate, normal rhythm, normal heart sounds. Absent: systolic murmur, diastolic murmur, rubs, gallop, clicks GI/Abdominal exam: Present: soft, normal bowel sounds. Absent: distended, tenderness, guarding, rebound, rigid Extremities exam: Present: normal inspection, full ROM, normal capillary refill. Absent: tenderness, pedal edema, joint swelling, calf tenderness Back exam: Present: normal inspection Neurological exam: Present: alert, oriented X3, CN II-XII intact Psychiatric exam: Present: normal affect, normal mood Skin exam: Present: warm, dry, intact, normal color. Absent: rash - Labs CBC & Chem 7: 04/19/23 05:54 04/19/23 05:54 Labs: Abnormal Lab Results - Last 24 Hours (Table) 04/19/23 04/19/23 Range/Units 05:54 05:54 WBC 11.29 H (4.50-10.00) X 10*3/uL RBC 3.61 L (4.40-5.60) X 10*6/uL Hgb 10.3 L (13.0-17.0) d/dL Hct 32.8 L (39.6-50.0) % MCHC 31.4 L (32.0-37.0) d/dL RDW 15.2 H (11.5-14.5) % Neutrophils # 8.23 H (1.80-7.70) X 10*3/uL Eosinophils # 0.02 L (0.04-0.35) X 10*3/uL BUN 50.5 H (9.0-27.0) mg/dL Est GFR (CKD-EPI) 44 L (>=60) BUN/Creatinine Ratio 33.67 H (12.00-20.00) Ratio C-Reactive Protein 1.80 H (0.00-0.80) mg/dL Microbiology - Last 24 Hours (Table) 04/14/23 00:13 Blood Culture - Final Blood 04/14/23 00:00 Blood Culture - Final Blood Assessment and Plan Plan: Covid 19 infection, diagnosed on 05/03/2023, currently on Decadron 6 mg IV every 24 hours, improving Acute pneumonia with vague patchy but the pulmonary infiltrates more so on the left lower lobe. Consider possibility of a Covid 19 related pneumonia. Superimposed bacterial pneumonia cannot be completely excluded. The patient is currently on IV Rocephin, improving Acute COPD exacerbation secondary to above, improving Acute hypoxic respiratory failure currently on room air oxygen Sinus tachycardia Mild leukocytosis, improving Chronic stage III kidney disease, creatinine is improved compared to yesterday Hyperkalemia with a potassium level of 5.8 Plan Continue same treatment, clinically continues to improve. No new complaints otherwise for now. No fever or chills. The white cell count is improving Chest x-ray shows limited improvement in left basal pulmonary infiltrate and a left lower lobe pulmonary infiltrate essentially improving We'll continue same treatment Continue Spiriva 2 puffs once a day and albuterol HFA 2 puffs 4 times a day Check pro calcitonin level was checked yesterday and the level was at 0.2 CAT scan of the chest was reviewed and there is a concern for bacterial pneumonia. I do suggest continuing the current antibiotics for now. No evidence of any pulmonary embolism. There are bilateral patchy no other densities that needs to be followed up on outpatient basis Continue Rocephin Continue Decadron 6 mg IV every 24 hours IV fluids KVO Albuterol HFA Oxygen supplementation to maintain a saturation above 90% We'll continue to follow Possible discharge in next 24-48 hours
[2023-04-20] MEDS: ATORVASTATIN 20 MG TAB PO SCH (21:10)
--- NOTE | 2023-04-21 01:37 | PN ---
PROGRESS NOTE DATE OF SERVICE: 04/19/2023 SUBJECTIVE: This is a white male came in with COVID pneumonia, acute hypoxemic respiratory failure. He is slowly improving with his breathing treatments, steroids, etc.. OBJECTIVE: VITAL SIGNS: Respiratory rate 18-20, temp 97.8, blood pressure 140s to 150s, O2 is 99 on 2 L. CARDIOVASCULAR: S1, S2. LUNGS: Scattered rhonchi and wheeze. HEMATOLOGY: Negative Homans. PSYCH: Fair mood and affect. ASSESSMENT: 1. COPD with COVID pneumonia. 2. Hypoxic respiratory failure. PLAN: Continue with IV steroids, updraft treatments, fluids, Decadron, pulmonary recommendations. MMODL / IJN: [id number] /
--- NOTE | 2023-04-21 02:36 | PN ---
PROGRESS NOTE SUBJECTIVE: An 87-year-old white male, who continues on Rocephin for secondary pneumonia secondary to COVID, hypoxemic respiratory failure. He is breathing. He is 96 on 3 L. OBJECTIVE: VITAL SIGNS: Temperature 97.9, blood pressure is 150s over 80s. CARDIOVASCULAR: S1, S2. LUNGS: Transmitted upper sounds, scattered wheeze. PSYCH: Fair mood and affect. NEUROLOGIC: Alert and oriented x3. EXTREMITIES: No edema. LABORATORY DATA: Reviewed. Infectious Disease consult reviewed. ASSESSMENT: 1. COVID-19. 2. Leukocytosis. 3. Pneumonia, multifactorial. 4. Chronic obstructive pulmonary disease. 5. Tracheobronchitis. 6. COVID pneumonia, left lower lobe infiltrate. 7. Penicillin allergy. PLAN: Some medical improvement every day. Continue Rocephin, azithromycin. Treat for COVID as mentioned. and Ceftin on discharge. Possibly go home in the next 24 to 48 hours. MMODL / IJN: [id number] /
[2023-04-21] MEDS: SODIUM CHLORIDE 0.9% 1,000 ML IV SCH (06:45)
[2023-04-21] MEDS: DEXAMETHASONE SOD PHOSPHATE 10 MG/ML 1 ML VIAL IVP SCH (08:37)
[2023-04-21] MEDS: atenoloL 25 MG TAB PO SCH (08:37)
[2023-04-21] MEDS: amLODIPine 5 MG TAB PO SCH (08:38)
[2023-04-21] MEDS: TIOTROPIUM 2.5 MCG INHALER INHALATION SCH (09:08)
[2023-04-21] MEDS: ALBUTEROL HFA INHALER INHALATION SCH ×3 (09:08→16:42)
[2023-04-21] MEDS: FLUTICASONE 110 MCG INHALER INHALATION SCH (09:08)
--- NOTE | 2023-04-21 11:13 | P.PN ---
Subjective Progress Note Date: 04/21/23 This is a 87-year-old male patient with known history of COPD who presented emergency department having shortness of breath. The patient was in the hospital approximately week ago and he tested positive for Covid 19 and he was discharged home. Noted at that time, the patient denied having any significant respiratory difficulties and some increased cough. No nausea or emesis. The patient came back and the Covid 19 testing was again positive. The white cell count was at 9.8, hemoglobin is at 10.8, BUN is at 46 and the creatinine is at 1.96 and the patient has chronic kidney disease. Potassium is at 5.8. Legionella urine antigen is negative for now. The rest of the viral screen was also negative. CAT scan of the chest was also done that showed a trace left- sided pleural effusion and areas of patchy scattered peripheral reticular opacities throughout the lungs most prominent in the left. There is concern for an atypical pneumonia although bacterial pneumonia cannot be completely ruled out. There was background emphysema. At home, the patient does not have any maintenance respiratory medications. Uses a nebulizer. He is currently on a termination of Rocephin and Zithromax and is also on Decadron. Patient is also on 2 L O2 nasal cannula with a pulse ox of 95%. No abdominal pain. No nausea or vomiting and there is no altered mentation. Coagulation profile is normal. D-dimer has not been checked. On today's evaluation of 04/15/2023, I'm seeing the patient for a follow-up. The patient is feeling better compared to yesterday. The patient remains on examination Rocephin and Zithromax. The patient is also on Decadron. Noted the patient was positive for Covid 19 for the past 1 week at least. There is suspicion for a superinfection and based on that the patient was covered with accommodation of Rocephin and Zithromax. The labs from today shows a WBC count of 19.5, hematemesis 10.6, renal function is improved compared to yesterday and creatinine is down to 1.68 with a BUN of 45, potassium level is at 5.0 with a sodium level of 139. The patient is known to have advanced COPD. Pulse ox on room air is around 94-95%. No altered mentation. No nausea or vomiting or diarrhea or any other new complaints. 04/16 2023, the patient is feeling well. Patient has no specific complaints. White cell count remains elevated at 19.4 with a hemoglobin of 11.5, BUN is at 41 with a creatinine of 1.6. LFTs are within normal limits. Sodium level is at 140. Pro-calcitonin level is at 0.2. The patient is on 3 L of Oxymizer nasal cannula with a pulse ox of 98%. He is afebrile. No other new complaints otherwise for now. 04/17/2023, seeing the patient for a follow-up. The patient had a follow-up chest x-ray today that showed improvement in left basilar infiltrate. The patient otherwise is stable. He has no specific complaints. No fever or chills. He does have no other changes bilaterally that needs to be followed up on outpatient basis and this could be essentially post Covid/parapneumonic in nature. Please refer to the CAT scan of the chest. Otherwise, the white cell count is at 19.4 from yesterday with a hemoglobin of 11.5, creatinine from yes terday is at 1.6. The patient remains on Decadron 6 mg IV 24 hours. The patient remains on IV Rocephin. Bronchodilators are still being administered in the form of a Ventolin HFA around the clock 4 times a day and he is also on Spiriva 2 puffs once a day. On today's evaluation of 04/18/2023, the patient is stable on 3 L of oxygen by nasal cannula with a pulse ox of 97%. No new complaints. White cell count at 19.4 with a hemoglobin 11.5, BUN is 41 with a creatinine 1.6 which is essentially stable and the patient remains on the same treatment which includes IV Rocephin. Suspected bacterial pneumonia, Decadron regarding the Covid 19 infection. He remains on Spiriva and albuterol HFA [id number]. White cell count remains elevated. The blood cultures are negative. 04/19/2023, the patient gradually improving. No new complaints. Remains on 3 L. He remains on Zithromax. Remains on Decadron. No cough or sputum production. The white cell count is improved and is currently down to 11.2, hemoglobin is at 10.3, platelet count is at 269, BUN is at 50 with a creatinine of 1.5 and a sodium levels of 140. On 04/20/2023, the patient continues to improve. No new complaints. White cell count is also improving. No cough or sputum production. No chest pain. The patient is seen today 04/21/2023 in follow-up on the regular medical floor. He is awake and alert in no acute distress. He is maintaining O2 saturations in the upper 90s on 2 L/m per nasal cannula. Blood cultures revealed no growth. He is continued on Decadron, Spiriva, albuterol. Antibiotics in the form of ceftriaxone. Pro-calcitonin 0.07. ID is on the case. Objective - Vital Signs Vital signs: Vital Signs Temp 98.4 F 04/21/23 07:22 Pulse 60 04/21/23 08:38 Resp 18 04/21/23 08:38 BP 136/80 04/21/23 07:22 Pulse Ox 97 04/21/23 09:11 FiO2 Intake & Output 04/20/23 04/21/23 04/21/23 18:59 06:59 18:59 Intake Total 1080 240 Balance 1080 240 Intake: Oral 1080 240 Other: Voiding Method Toilet # Voids 3 3 - Exam GENERAL EXAM: Alert, pleasant 87-year-old male, on 2 L nasal cannula, comfortable in no apparent distress. HEAD: Normocephalic. EYES: Normal reaction of pupils, equal size. NOSE: Clear with pink turbinates. THROAT: No erythema or exudates. NECK: No masses, no JVD. CHEST: No chest wall deformity. LUNGS: Equal air entry with few scattered rhonchi. CVS: S1 and S2 normal with no audible murmur, regular rhythm. ABDOMEN: No hepatosplenomegaly, normal bowel sounds, no guarding or rigidity. SPINE: No scoliosis or deformity SKIN: No rashes CENTRAL NERVOUS SYSTEM: No focal deficits, tone is normal in all 4 extremities. EXTREMITIES: There is no peripheral edema. No clubbing, no cyanosis. Peripheral pulses are intact. - Labs CBC & Chem 7: 04/19/23 05:54 04/19/23 05:54 Assessment and Plan Assessment: Covid 19 infection, diagnosed on 04/13/2023, currently on Decadron 6 mg IV every 24 hours, improving Acute pneumonia with vague patchy but the pulmonary infiltrates more so on the left lower lobe. Consider possibility of a Covid 19 related pneumonia. Superimposed bacterial pneumonia cannot be completely excluded. The patient is currently on IV Rocephin, improving Acute COPD exacerbation secondary to above, improving Acute hypoxic respiratory failure currently on room air oxygen Sinus tachycardia Mild leukocytosis, improving Chronic stage III kidney disease, creatinine is improved to 1.5 Hyperkalemia with a potassium level of 5.8, improved and currently 5.1 Plan: The patient was seen and evaluated Medications are reviewed Stable for discharge from the pulmonary standpoint States he has home oxygen, Symbicort Complete a ten-day course of Decadron Antibiotics per ID services Follow-up with pulmonology in one week I have personally seen and examined the patient, performed the documentation and the assessment and plan as written. Number of minutes spent on the visit: 10.
--- NOTE | 2023-04-21 12:33 | P.PN ---
Subjective Progress Note Date: 04/21/23 Principal diagnosis: Pneumonia This patient is a 87-year-old male with a past medical history significant for COPD pneumonia patient presenting to the hospital for evaluation of increasing shortness of breath patient mention has not been feeling well for about a week and apparently has been diagnosed with a COVID-19 when the patient was evaluated in [facility] ER on 04/06/2023, patient did test positive for covid 19, CT chest with scattered infected more on the left lower lobe and did have elevated procalcitonin. On today's evaluation that is 04/21/2023, the patient continues to be afebrile, the patient is breathing comfortably on 2, oxygen, the patient denies chest pain, the patient cough is decreased intensity, the patient denies having any nausea or vomiting ,, no abdominal pain or diarrhea Patient white count is down to 11.29, creatinine is 1.5, as of 04/19/2023 Blood culture has been negative so far sputum not collected. Chest x-ray 2022 shows improvement in the left lower lobe infiltrate Objective - Vital Signs Vital signs: Vital Signs Temp 98.4 F 04/21/23 07:22 Pulse 60 04/21/23 08:38 Resp 18 04/21/23 08:38 BP 136/80 04/21/23 07:22 Pulse Ox 97 04/21/23 09:11 FiO2 Intake & Output 04/20/23 04/21/23 04/21/23 18:59 06:59 18:59 Intake Total 1080 240 Balance 1080 240 Intake: Oral 1080 240 Other: Voiding Method Toilet # Voids 3 3 - Exam GENERAL DESCRIPTION: An elderly male lying in bed in no distress RESPIRATORY SYSTEM: Unlabored breathing , decreased breath sounds at bases HEART: S1 S2 regular rate and rhythm , ABDOMEN: Soft , no tenderness EXTREMITIES: No edema feet - Labs CBC & Chem 7: 04/19/23 05:54 04/19/23 05:54 Assessment and Plan (1) COVID-19 Current Visit: Yes Status: Acute Code(s): U07.1 - COVID-19 SNOMED Code(s): 574419359 (2) Leukocytosis Current Visit: Yes Status: Acute Code(s): D72.829 - ELEVATED WHITE BLOOD CELL COUNT, UNSPECIFIED SNOMED Code(s): 427683927 (3) Pneumonia Current Visit: Yes Status: Acute Code(s): J18.9 - PNEUMONIA, UNSPECIFIED ORGANISM SNOMED Code(s): 806525623 Plan: 1patient present to hospital with increasing shortness of breath which is multifactorial in this patient who do have underlying COPD and was diagnosed with a COVID-19 more than a week ago now presenting with worsening respiratory symptoms did have a low-grade fever elevated white count predominant left lower lobe infiltrate with a question of possible secondary bacterial pneumonia. 2patient with a penicillin allergy that will limit the number of antibiotics safe to use. 3leukocytosis more likely steroid related and the patient white count is trending down , we will repeat a CBC in the a.m. lab 4-patient has shown clinical improvement and did have improvement in the chest x-ray as , plan is to continue the patient on Rocephin, to finish therapy with short course of Ceftin on discharge Dictation was produced using [employer] dictation software. please excuse any grammatical, word or spelling errors. Time with Patient: Less than 30
[2023-04-21 15:07] VITALS: BP 124/65; PULSE 63; RESP 16; TEMP 97.6
== END 2023-04-21 18:34 | disposition home health service (06) | DRG 177 ==
LOC: EC 21:09 → 4SSUR 23:38
PROVIDERS: ADMIT Family Medicine; ATTEND Family Medicine
DX: U07.1 COVID-19 (principal); J12.82 Pneumonia due to coronavirus disease 2019; J15.9 Unspecified bacterial pneumonia; J96.01 Acute respiratory failure with hypoxia; E87.5 Hyperkalemia; F10.20 Alcohol dependence, uncomplicated; I12.9 Hypertensive chronic kidney disease with stage 1 through stage 4 chronic kidney disease, or unspecified chronic kidney disease; R00.0 Tachycardia, unspecified; J43.9 Emphysema, unspecified; Z99.81 Dependence on supplemental oxygen; Z79.51 Long term (current) use of inhaled steroids; Z79.899 Other long term (current) drug therapy; N18.30 Chronic kidney disease, stage 3 unspecified; Z88.0 Allergy status to penicillin
CPT/HCPCS: 36415; 71045; 71250; 80048; 80053; 83605; 83735; 83880; 84145; 84484; 85025; 85610; 85730; 86140; 87040; 87449; 87636; 93005; 94640; 94760; 96365; 96366; 96367; 96375; 96376; 99285

== ENCOUNTER 2024-08-10 13:05 | Observation (INO) | payer MEDICARE ==
[2024-08-10 13:44] LABS: Basophils % (A) 1 %; Eosinophils # (A) 0.2 k/uL (0-0.7); Eosinophils % (A) 3 %; HCT 34.4 % (39.0-53.0); HGB 10.8 gm/dL (13.0-17.5); Hypochromasia Slight; Lymphocytes # (A) 0.9 k/uL (1.0-4.8); Lymphocytes % (A) 13 %; MCH 28.4 pg (25.0-35.0); MCHC 31.5 g/dL (31.0-37.0); Mean Platelet Volume 6.8; Monocytes # (A) 0.3 k/uL (0-1.0); Monocytes % (A) 4 %; Neutrophils # (A) 5.5 k/uL (1.3-7.7); Neutrophils % (A) 78 %; Platelet Count 272 k/uL (150-450); RBC 3.82 m/uL (4.30-5.90); WBC 7.1 k/uL (3.8-10.6)
--- NOTE | 2024-08-10 13:52 | ED ---
General Adult HPI - General Chief complaint: Chest Pain Stated complaint: CP, L arm+neck pain Time Seen by Provider: 08/10/24 13:20 Source: patient, RN notes reviewed, old records reviewed Mode of arrival: ambulatory Limitations: no limitations - History of Present Illness Initial comments: This is an 88-year-old male who has a past medical history significant for high cholesterol. Patient presents to the emergency department today complaining of chest pain. Patient states the pain starts in the left side of his chest went into his neck and down his left arm. Patient states yesterday he took 2 aspirin and took the pain away. Patient stated it reoccurred today and took 2 Tylenol and he did not take the pain away so he came to the emergency department. Patient states currently there is no pain it took about an hour for it to go away. Patient did not think he was short of breath or diaphoretic. Patient denied any nausea. Patient had any abdominal pain. Patient denies any recent fever chills or cough. Patient denies a headache patient has numbness weakness. - Related Data Home Medications Medication Instructions Recorded Confirmed Albuterol Sulfate [Albuterol 2 puff PO RT-Q4H PRN 08/10/24 08/10/24 Sulfate Hfa] Cetirizine HCl [Zyrtec] 10 mg PO BID 08/10/24 08/10/24 Clobetasol Propionate [Temovate 1 applic TOPICAL BID PRN 08/10/24 08/10/24 0.05% Cream] amLODIPine [Norvasc] 2.5 mg PO DAILY 08/10/24 08/10/24 Previous Rx's Medication Instructions Recorded Atorvastatin [Lipitor] 20 mg PO HS tab 04/27/20 Tiotropium 2.5 Mcg/Puff [Spiriva 2 puff INHALATION RT-DAILY 30 Days 04/21/23 Respimat 2.5 Mcg] #1 each atenoloL [Tenormin] 25 mg PO BID 30 Days #60 tab 04/21/23 Allergies Allergy/AdvReac Type Severity Reaction Status Date / Time Penicillins Allergy Unknown Verified 08/10/24 15:30 Childhood Review of Systems ROS Statement: Those systems with pertinent positive or pertinent negative responses have been documented in the HPI. ROS Other: All systems not noted in ROS Statement are negative. Past Medical History Past Medical History: COPD, Pneumonia Additional Past Medical History / Comment(s): HX C-DIFF (2011), BACK PAIN History of Any Multi-Drug Resistant Organisms: C-DIFF Date of last positivie culture/infection: 2011/C-Diff MDRO Source:: stool Past Surgical History: Hernia Repair Past Anesthesia/Blood Transfusion Reactions: No Reported Reaction Past Psychological History: No Psychological Hx Reported Smoking Status: Former smoker Past Alcohol Use History: Rare Past Drug Use History: None Reported - Past Family History Sister(s) Family Medical History: Cancer Additional Family Medical History / Comment(s): pancreatic Brother(s) Family Medical History: Cancer General Exam - General Exam Comments Initial Comments: GENERAL: Patient is well-developed and well-nourished. Patient is nontoxic and well- hydrated and is in no acute distress. ENT: Neck is soft and supple. No significant lymphadenopathy is noted. Oropharynx is clear. Moist mucous membranes. Neck has full range of motion without eliciting any pain. EYES: The sclera were anicteric and conjunctiva were pink and moist. Extraocular movements were intact and pupils were equal round and reactive to light. Eyelids were unremarkable. PULMONARY: Unlabored respirations. Good breath sounds bilaterally. No audible rales rhonchi or wheezing was noted. CARDIOVASCULAR: There is a regular rate and rhythm without any murmurs gallops or rubs. ABDOMEN: Soft and nontender with normal bowel sounds. SKIN: Skin is clear with no lesions or rashes and otherwise unremarkable. NEUROLOGIC: Patient is alert and oriented x3. Cranial nerves II through XII are grossly intact. Motor and sensory are also intact. Normal speech, volume and content. Symmetrical smile. MUSCULOSKELETAL: Normal extremities with adequate strength and full range of motion. No lower extremity swelling or edema. No calf tenderness. LYMPHATICS: No significant lymphadenopathy is noted PSYCHIATRIC: Normal psychiatric evaluation. Limitations: no limitations Course Vital Signs 08/10/24 08/10/24 08/10/24 13:07 13:13 14:54 Temperature 98.3 F Pulse Rate 80 88 85 Respiratory 16 16 Rate Blood Pressure 151/76 O2 Sat by Pulse 97 97 96 Oximetry 08/10/24 15:18 Temperature Pulse Rate 71 Respiratory 15 Rate Blood Pressure 137/76 O2 Sat by Pulse 97 Oximetry Medical Decision Making - Medical Decision Making EKG is interpreted by myself. EKG shows sinus rhythm at 76 bpm DE interval 191 QRS is 94 QT interval 340 QTc is 371. Patient's EKG shows no ST segment elevation or depression Was pt. sent in by a medical professional or institution (JOSE Amaral, EXPERIMENTAL PSYCHOLOGIST, urgent care, hospital, or fdc...) When possible be specific @ -No Did you speak to anyone other than the patient for history (EMS, parent, family, police, friend...)? What history was obtained from this source @ -No Did you review nursing and triage notes (agree or disagree)? Why? @ -I reviewed and agree with nursing and triage notes Were old charts reviewed (outside hosp., previous admission, EMS record, old EKG, old radiological studies, urgent care reports/EKG's, fdc records)? Report findings @ -No old charts were reviewed Differential Diagnosis? @ -Differential Chest Pain: Stable Angina, Unstable Angina, STEMI, NSTEMI Aortic Dissection, Pneumothorax, Musculoskeletal, Esophageal Spasm GERD, Cholecystitis, Pancreatitis, Zoster, this is not meant to be an all-inclusive list. EKG interpreted by me (3pts min.). @ -As above X-rays interpreted by me (1pt min.). @ -Chest x-ray shows no acute normality CT interpreted by me (1pt min.). @ -None done U/S interpreted by me (1pt. min.). @ -None done What testing was considered but not performed or refused? (CT, X-rays, U/S, labs)? Why? @ -None What meds were considered but not given or refused? Why? @ -None Did you discuss the management of the patient with other professionals (professionals i.e. JOSE Amaral, EXPERIMENTAL PSYCHOLOGIST, lab, RT, psych nurse, social staff worker, software validation technician, teacher, retail loss prevention officer, case resource manager)? Give summary @ -I spoke with Dr. Wu and he agreed to admit the patient Was smoking cessation discussed for >3mins.? @ -No Was critical care preformed (if so, how long)? @ -No Were there social determinants of health that impacted care today? How? (Homelessness, low income, unemployed, alcoholism, drug addiction, transportation, low edu. Level, literacy, decrease access to med. care, long-term, rehab)? @ -No Was there de-escalation of care discussed even if they declined (Discuss DNR or withdrawal of care, Hospice)? DNR status @ -No What co-morbidities impacted this encounter? (DM, HTN, Smoking, COPD, CAD, Cancer, CVA, ARF, Chemo, Hep., AIDS, mental health diagnosis, sleep apnea, morbid obesity)? @ -None Was patient admitted / discharged? Hospital course, mention meds given and route, prescriptions, significant lab abnormalities, going to OR and other pertinent info. @ -patient is not having any chest pain currently he states he has not had any chest pain since has been in the emergency department patient will be admitted to Dr. Wu with a consult to cardiology Undiagnosed new problem with uncertain prognosis? @ -No Drug Therapy requiring intensive monitoring for toxicity (Heparin, Nitro, Insulin, Cardizem)? @ -No Were any procedures done? @ -No Diagnosis/symptom? @ -Chest pain Acute, or Chronic, or Acute on Chronic? @ -Acute Uncomplicated (without systemic symptoms) or Complicated (systemic symptoms)? @ -Complicated Side effects of treatment? @ -No Exacerbation, Progression, or Severe Exacerbation? @ -No Poses a threat to life or bodily function? How? (Chest pain, [place], [place], pneumonia, PE, COPD, DKA, ARF, appy, cholecystitis, CVA, Diverticulitis, Homicidal, Suicidal, threat to staff... and all critical care pts) @ -No - Lab Data Result diagrams: 08/10/24 13:28 08/10/24 13:28 Lab Results 08/10/24 08/10/24 08/10/24 Range/Units 13:28 13:28 13:28 WBC 7.1 (3.8-10.6) k/uL RBC 3.82 L (4.30-5.90) m/uL Hgb 10.8 L (13.0-17.5) gm/dL Hct 34.4 L (39.0-53.0) % MCV 90.0 (80.0-100.0) fL MCH 28.4 (25.0-35.0) pg MCHC 31.5 (31.0-37.0) g/dL RDW 15.0 (11.5-15.5) % Plt Count 272 (150-450) k/uL MPV 6.8 Neutrophils % 78 % Lymphocytes % 13 % Monocytes % 4 % Eosinophils % 3 % Basophils % 1 % Neutrophils # 5.5 (1.3-7.7) k/uL Lymphocytes # 0.9 L (1.0-4.8) k/uL Monocytes # 0.3 (0-1.0) k/uL Eosinophils # 0.2 (0-0.7) k/uL Basophils # 0.0 (0-0.2) k/uL Hypochromasia Slight PT 10.6 (10.0-12.5) sec INR 0.9 (<1.2) APTT 23.1 (22.0-30.0) sec Sodium 142 (137-145) mmol/L Potassium 5.9 H (3.5-5.1) mmol/L Chloride 111 H (98-107) mmol/L Carbon Dioxide 22 (22-30) mmol/L Anion Gap 9 mmol/L BUN 48 H (9-20) mg/dL Creatinine 1.95 H (0.66-1.25) mg/dL Est GFR (CKD-EPI)AfAm 34 (>60 ml/min/1.73 sqM) Est GFR (CKD-EPI)NonAf 30 (>60 ml/min/1.73 sqM) Glucose 128 H (74-99) mg/dL Calcium 9.3 (8.4-10.2) mg/dL Magnesium 2.1 (1.6-2.3) mg/dL Total Bilirubin 0.3 (0.2-1.3) mg/dL AST 25 (17-59) U/L ALT 15 (4-49) U/L Alkaline Phosphatase 111 (38-126) U/L Troponin I (0.000-0.034) ng/mL Total Protein 7.2 (6.3-8.2) g/dL Albumin 4.1 (3.5-5.0) g/dL 08/10/24 Range/Units 13:28 WBC (3.8-10.6) k/uL RBC (4.30-5.90) m/uL Hgb (13.0-17.5) gm/dL Hct (39.0-53.0) % MCV (80.0-100.0) fL MCH (25.0-35.0) pg MCHC (31.0-37.0) g/dL RDW (11.5-15.5) % Plt Count (150-450) k/uL MPV Neutrophils % % Lymphocytes % % Monocytes % % Eosinophils % % Basophils % % Neutrophils # (1.3-7.7) k/uL Lymphocytes # (1.0-4.8) k/uL Monocytes # (0-1.0) k/uL Eosinophils # (0-0.7) k/uL Basophils # (0-0.2) k/uL Hypochromasia PT (10.0-12.5) sec INR (<1.2) APTT (22.0-30.0) sec Sodium (137-145) mmol/L Potassium (3.5-5.1) mmol/L Chloride (98-107) mmol/L Carbon Dioxide (22-30) mmol/L Anion Gap mmol/L BUN (9-20) mg/dL Creatinine (0.66-1.25) mg/dL Est GFR (CKD-EPI)AfAm (>60 ml/min/1.73 sqM) Est GFR (CKD-EPI)NonAf (>60 ml/min/1.73 sqM) Glucose (74-99) mg/dL Calcium (8.4-10.2) mg/dL Magnesium (1.6-2.3) mg/dL Total Bilirubin (0.2-1.3) mg/dL AST (17-59) U/L ALT (4-49) U/L Alkaline Phosphatase (38-126) U/L Troponin I <0.012 (0.000-0.034) ng/mL Total Protein (6.3-8.2) g/dL Albumin (3.5-5.0) g/dL Disposition Clinical Impression: Chest pain Disposition: ADMITTED IP TO THIS HOSP Referrals: Maksim Wu MD [Primary Care Provider] - 1-2 days Time of Disposition: 16:34
[2024-08-10 14:00] LABS: ALT 15 U/L (4-49); AST 25 U/L (17-59); African American GFR (CKD) 34 (>60 ml/min/1.73 sqM); Albumin 4.1 g/dL (3.5-5.0); Alkaline Phosphatase 111 U/L (38-126); Anion Gap 9 mmol/L; Blood Urea Nitrogen 48 mg/dL (9-20); Calcium 9.3 mg/dL (8.4-10.2); Carbon Dioxide 22 mmol/L (22-30); Chloride 111 mmol/L (98-107); Glucose 128 mg/dL (74-99); Magnesium 2.1 mg/dL (1.6-2.3); Non-African American GFR(CKD) 30 (>60 ml/min/1.73 sqM); Potassium 5.9 mmol/L (3.5-5.1); Sodium 142 mmol/L (137-145); Total Bilirubin 0.3 mg/dL (0.2-1.3); Total Protein 7.2 g/dL (6.3-8.2)
--- NOTE | 2024-08-10 14:18 | XR ---
EXAMINATION TYPE: XR chest 2V DATE OF EXAM: 08/10/2024 2:10 PM COMPARISON: 04/17/2023 CLINICAL INDICATION: Male, 88 years old with history of Chest Pain, , TECHNIQUE: PA and lateral views FINDINGS: Heart mildly enlarged. Atherosclerotic arch calcifications. Diffuse interstitial density. Focal left midlung pleural calcification again noted. Some patchy left infrahilar opacity and chronic pleural pa renchymal scarring posterior left lower lung especially on the lateral view. IMPRESSION: COPD with chronic pleural-parenchymal scarring at the posterior left lower lung. However, there is so me patchy atelectasis or pneumonia at the left infrahilar region. [facility], , 08/10/2024 2:16 PM
[2024-08-10 15:16] LABS: INR 0.9 (<1.2); Partial Thromboplastin Time 23.1 sec (22.0-30.0); Prothrombin Time 10.6 sec (10.0-12.5)
[2024-08-10] MEDS ORDERED: NITROGLYCERIN SL TABS 0.4 MG TAB SUBLINGUAL PRN (16:34)
[2024-08-10] MEDS: NITROGLYCERIN OINT 1 INCH/GM PACKET TOPICAL SCH (19:36)
[2024-08-10] MEDS: ATORVASTATIN 20 MG TAB PO SCH (22:01)
[2024-08-10] MEDS: traMADol 50 MG TAB PO PRN (22:01)
[2024-08-10] MEDS: IPRATROPIUM-ALBUTEROL 3 ML NEB INHALATION SCH (23:08)
[2024-08-10] MEDS: atenoloL 25 MG TAB PO SCH (23:33)
--- NOTE | 2024-08-10 23:54 | CT ---
EXAM: CT Chest Without Intravenous Contrast CLINICAL HISTORY: ITS.REASON CT Reason: cp,cap TECHNIQUE: Axial computed tomography images of the chest without intravenous contrast. CTDI is 6.4 mGy and DLP is 304 mGy-cm. This CT exam was performed using one or more of the following dose reduction techniques: automated exposure control, adjustment of the mA and/or kV according to patient size, and/or use of iterative reconstruction technique. COMPARISON: No relevant prior studies available. FINDINGS: Lungs: Spiculated nodule in the LEFT lung apex measures 1.4 x 1.6 x 2. 8 cm, concerning for lung cancer. Underlying, mild centrilobular emphysema. LEFT upper lobe nodule, in the lingula measures 12 mm. Atelectasis at the lung bases. Pleural space: Unremarkable. No pneumothorax. No significant effusion. Heart: Unremarkable. No cardiomegaly. No significant pericardial effusion. No significant coronary artery calcifications. Bones/joints: Degenerative changes of the spine. No acute fracture. No dislocation. Soft tissues: Unremarkable. Vasculature: Atherosclerotic changes of the aorta. No thoracic aortic aneurysm. Lymph nodes: Unremarkable. No enlarged lymph nodes. Spleen: Low-attenuation mass in the spleen measures 2.7 x 2.5 cm. This is indeterminate. Metastatic involvement not excluded. IMPRESSION: 1. Spiculated nodule in the LEFT lung apex measures 1.4 x 1.6 x 2.8 cm, concerning for lung cancer. Underlying, mild centrilobular emphysema. 2. LEFT upper lobe nodule, in the lingula measures 12 mm.
[2024-08-11] MEDS: SODIUM CHLORIDE 0.9% 1,000 ML IV SCH (00:03)
[2024-08-11] MEDS: AZITHROMYCIN 500 MG in SODIUM CHLORIDE 0.9% 250 ML IVPB SCH (00:43)
[2024-08-11 08:37] LABS: Basophils # (A) 0.05 X 10*3/uL (0.00-0.10); Basophils % (A) 0.7 %; Eosinophils % (A) 3.9 %; HCT 32.2 % (39.6-50.0); HGB 9.8 g/dL (13.0-17.0); Lymphocytes # (A) 1.24 X 10*3/uL (0.90-5.00); Lymphocytes % (A) 16.2 %; MCH 27.8 pg (27.0-32.0); MCHC 30.4 g/dL (32.0-37.0); MCV 91.2 FL (80.0-97.0); Mean Platelet Volume 9.9 FL (9.5-12.2); Monocytes # (A) 0.53 X 10*3/uL (0.20-1.00); Monocytes % (A) 6.9 %; NRBC Per 100 WBC 0 X 10*3/uL (0.00-0.01); Neutrophils # (A) 5.51 X 10*3/uL (1.80-7.70); Neutrophils % (A) 71.9 %; Platelet Count 249 X 10*3/uL (140-440); RBC 3.53 X 10*6/uL (4.40-5.60); RDW 15.3 % (11.5-14.5); WBC 7.66 X 10*3/uL (4.50-10.00)
[2024-08-11 08:44] LABS: Chol/HDL Ratio 2.91 Ratio; LDL Cholesterol,Calculated 77.8 mg/dL (0.0-131.0); VLDL Calculation 14.84 mg/dL (5.00-40.00)
[2024-08-11 08:50] LABS: ALT 12 U/L (10-49); AST 24 U/L (14-35); Albumin 3.9 g/dL (3.8-4.9); Albumin/Globulin Ratio 1.34 Ratio (1.60-3.17); Alkaline Phosphatase 122 U/L (41-126); Blood Urea Nitrogen 44.4 mg/dL (9.0-27.0); Calcium 8.6 mg/dL (8.7-10.3); Carbon Dioxide 18.1 mmol/L (21.6-31.8); Chloride 110 mmol/L (96-109); Globulin 2.9 g/dL (1.6-3.3); Glucose 101 mg/dL (70-110); Potassium 6.5 mmol/L (3.5-5.5); Sodium 139 mmol/L (135-145); Total Bilirubin <0.2 mg/dL (0.3-1.2); Total Protein 6.8 g/dL (6.2-8.2)
[2024-08-11] MEDS: ASPIRIN 325 MG TAB PO SCH (09:13)
[2024-08-11] MEDS: amLODIPine 2.5 MG TAB PO SCH (09:13)
[2024-08-11] MEDS: SODIUM ZIRCONIUM CYCLOSILICATE 10 GM PACKET PO ONE (11:30)
--- NOTE | 2024-08-11 11:34 | P.CRDCN ---
History of Present Illness Consult date: 08/11/24 History of present illness: HISTORY OF PRESENTING ILLNESS: Patient is a 88-year-old male with past medical history of dyslipidemia, hypertension, COPD, He is known to Dr. Deleon. He presents to the hospital because of concerns of left-sided chest pain that was radiating to his neck and arm. Patient took 2 baby aspirin and symptoms resolved. Patient has not had any recurrent symptoms while in the hospital. He also had mild associated shortness of breath. Admission Cardiac Labs: Troponin x 3 were negative. BUN 48, creatinine 1.9. Potassium 5.9. Repeat potassium 6.5. Admission testing: EKG shows sinus rhythm, hyperacute T waves could be related to hyperkalemia Prior cardiac testing: Lexiscan nuclear outpatient, 2022, no evidence of ischemia, shows moderate size moderate intensity primarily fixed perfusion defect in inferior wall. REVIEW OF SYSTEMS: 14 point review of system is negative except what is mentioned above in HPI. PHYSICAL EXAMINATION: Neck: Brisk carotid upstroke, no jugular venous distention. Lungs: Clear to auscultation. Heart: Regular rate and rhythm, S1-S2, , no murmur or rub. Abdomen: Soft nontender, positive bowel sounds. Extremities: No edema, intact distal pulses. Neuro: Alert, oritented, no focal deficits. Detailed neuro exam was not performed. ASSESSMENT: # Atypical chest pain # Hyperkalemia, likely due to CKD # CKD # Essential hypertension # Dyslipidemia # Anemia # Pulmonary nodule PLAN: Not of ACS with negative ECG and troponin. Will obtain updated echocardiogram Primary team to manage hyperkalemia Primary team to manage pulmonary nodule Patient had a stress test in 2022 which showed fixed inferior wall perfusion defect but no signs of reversible ischemia. Because patient's ongoing symptoms are very atypical, I would not obtain a repeat stress test. We would reevaluate patient symptoms and evaluate if patient needs a stress test on outpatient basis. If patient's echocardiogram is nonrevealing with no significant valvular disease or regional wall motion abnormality or cardiomyopathy, patient can be discharged from cardiac standpoint with recommended outpatient follow-up. I will continue patient's home medication which includes Lipitor 20, amlodipine 2.5, atenolol 25 twice daily. I would add aspirin 81 mg daily Adiel Tay MD, FACC, RPVI Thank you for allowing [facility] to participate in this patient's care. Feel free to reach out in case of any followup questions. Past Medical History Past Medical History: COPD, Hyperlipidemia, Hypertension, Pneumonia Additional Past Medical History / Comment(s): HX C-DIFF (2011), BACK PAIN, AAA 4cm follows w/ Dr. ni. History of Any Multi-Drug Resistant Organisms: C-DIFF Date of last positivie culture/infection: 2011/C-Diff MDRO Source:: stool Past Surgical History: Hernia Repair Past Anesthesia/Blood Transfusion Reactions: No Reported Reaction Past Psychological History: No Psychological Hx Reported Smoking Status: Former smoker Past Alcohol Use History: Rare Additional Past Alcohol Use History / Comment(s): smoked 50-60 years ,1/2ppd quit smoking mar 2019 Past Drug Use History: None Reported - Past Family History Sister(s) Family Medical History: Cancer Additional Family Medical History / Comment(s): pancreatic Brother(s) Family Medical History: Cancer Medications and Allergies Home Medications Medication Instructions Recorded Confirmed Type Atorvastatin [Lipitor] 20 mg PO HS tab 04/27/20 08/10/24 Rx Tiotropium 2.5 Mcg/Puff [Spiriva 2 puff INHALATION RT-DAILY 30 Days 04/21/23 08/10/24 Rx Respimat 2.5 Mcg] #1 each atenoloL [Tenormin] 25 mg PO BID 30 Days #60 tab 04/21/23 08/10/24 Rx Albuterol Sulfate [Albuterol 2 puff PO RT-Q4H PRN 08/10/24 08/10/24 History Sulfate Hfa] Cetirizine HCl [Zyrtec] 10 mg PO BID 08/10/24 08/10/24 History Clobetasol Propionate [Temovate 1 applic TOPICAL BID PRN 08/10/24 08/10/24 History 0.05% Cream] amLODIPine [Norvasc] 2.5 mg PO DAILY 08/10/24 08/10/24 History Allergies Allergy/AdvReac Type Severity Reaction Status Date / Time Penicillins Allergy Unknown Verified 08/10/24 15:30 Childhood Physical Exam Vitals: Vital Signs Temp Pulse Pulse Resp BP BP Pulse Ox 08/11/24 09:52 88 08/11/24 09:40 88 08/11/24 07:00 97.6 F 73 16 152/73 100 08/11/24 02:00 97.6 F 74 17 127/70 99 08/11/24 00:22 97.7 F 79 20 152/85 98 08/10/24 23:00 91 168/94 08/10/24 19:31 97.9 F 77 18 129/73 98 08/10/24 17:56 85 15 137/76 92 L 08/10/24 15:18 71 15 137/76 97 08/10/24 14:54 85 96 08/10/24 13:13 88 16 97 08/10/24 13:07 98.3 F 80 16 151/76 97 Intake and Output 08/10/24 08/11/24 08/11/24 22:59 06:59 14:59 Other: # Voids 1 Weight 63.503 kg Results 08/11/24 04:31 08/11/24 04:31 Cardiac Enzymes 08/10/24 08/10/24 08/10/24 Range/Units 13:28 13:28 16:39 AST 25 (17-59) U/L Troponin I <0.012 <0.012 (0.000-0.034) ng/mL 08/10/24 08/11/24 Range/Units 19:35 04:31 AST 24 (17-59) U/L Troponin I <0.012 (0.000-0.034) ng/mL Coagulation 08/10/24 Range/Units 13:28 PT 10.6 (10.0-12.5) sec APTT 23.1 (22.0-30.0) sec Lipids 08/11/24 Range/Units 04:31 Triglycerides 74.20 (0.00-149.00) mg/dL Cholesterol 141.00 (0.00-200.00) mg/dL HDL Cholesterol 48.40 (40.00-60.00) mg/dL Cholesterol/HDL Ratio 2.91 Ratio CBC 08/10/24 08/11/24 Range/Units 13:28 04:31 WBC 7.1 7.66 (3.8-10.6) k/uL RBC 3.82 L 3.53 L (4.30-5.90) m/uL Hgb 10.8 L 9.8 L (13.0-17.5) gm/dL Hct 34.4 L 32.2 L (39.0-53.0) % Plt Count 272 249 (150-450) k/uL Comprehensive Metabolic Panel 08/10/24 08/11/24 Range/Units 13:28 04:31 Sodium 142 139 (137-145) mmol/L Potassium 5.9 H 6.5 A* (3.5-5.1) mmol/L Chloride 111 H 110 H (98-107) mmol/L Carbon Dioxide 22 18.1 L (22-30) mmol/L BUN 48 H 44.4 H (9-20) mg/dL Creatinine 1.95 H 2.0 H (0.66-1.25) mg/dL Glucose 128 H 101 (74-99) mg/dL Calcium 9.3 8.6 L (8.4-10.2) mg/dL AST 25 24 (17-59) U/L ALT 15 12 (4-49) U/L Alkaline Phosphatase 111 122 (38-126) U/L Total Protein 7.2 6.8 (6.3-8.2) g/dL Albumin 4.1 3.9 (3.5-5.0) g/dL Current Medications Generic Name Dose Route Start Last Admin Trade Name Freq PRN Reason Stop Dose Admin Albuterol/Ipratropium 3 ml 08/10/24 22:00 08/11/24 09:39 Ipratropium-Albuterol 3 Ml Neb INHALATION 3 ml RT-QID CHICHI Administration Amlodipine Besylate 2.5 mg 08/11/24 09:00 08/11/24 09:13 Amlodipine 2.5 Mg Tab PO 2.5 mg DAILY CHICHI Administration Aspirin 325 mg 08/11/24 09:00 08/11/24 09:13 Aspirin 325 Mg Tab PO 325 mg DAILY CHICHI Administration Atenolol 25 mg 08/10/24 21:45 08/11/24 09:13 Atenolol 25 Mg Tab PO 25 mg BID CHICHI Administration Atorvastatin Calcium 20 mg 08/10/24 21:45 08/10/24 22:01 Atorvastatin 20 Mg Tab PO 20 mg HS CHICHI Administration Azithromycin 500 mg/ Sodium 250 mls @ 250 mls/hr 08/10/24 23:00 08/11/24 00:43 Chloride IVPB 08/12/24 23:59 250 mls/hr DAILY@2300 CHICHI Administration Protocol Ceftriaxone Sodium 1 gm/ 50 mls @ 100 mls/hr 08/11/24 00:00 08/11/24 00:03 Sodium Chloride IVPB 100 mls/hr Q24H CHICHI Administration Protocol Sodium Chloride 1,000 mls @ 75 mls/hr 08/10/24 22:45 08/11/24 11:30 Saline 0.9% IV 75 mls/hr .[id number] CHICHI Administration Nitroglycerin 0.4 mg 08/10/24 16:34 Nitroglycerin Sl Tabs 0.4 Mg Tab SUBLINGUAL Q5M PRN Chest Pain Tramadol HCl 50 mg 08/10/24 21:27 08/10/24 22:01 Tramadol 50 Mg Tab PO 50 mg QID PRN Administration Pain Intake and Output 08/10/24 08/11/24 08/11/24 22:59 06:59 14:59 Other: # Voids 1 Weight 63.503 kg 08/11/24 04:31 08/11/24 04:31
--- NOTE | 2024-08-11 17:08 | P.CNPUL ---
History of Present Illness Consult date: 08/11/24 Reason for consult: lung mass History of present illness: 88-year-old male patient presented to the emergency department complaining of chest pain. The pain started on the left side of the chest and went to his neck and left upper extremity. He took aspirin at home and the pain subsided. Subsequently, it recurred and for that reason the patient came into the emergency department. No shortness of breath. No diaphoresis. No nausea or vomiting. No abdominal pain. No fever or chills. Workup included a white cell count of 7.1 with a hemoglobin 10.8 and a platelet count of 272. Normal coagulation profile. He has evidence of chronic kidney disease with a GFR of 34 with a creatinine of 1.9 and a potassium level of 5.9 that came back at 6.5 on morning's lab. Bicarb is at 22, chloride is 111. LFTs are normal. Troponins were negative x 3. LDL cholesterol was at 78. EKG showed normal sinus rhythm without any acute ischemic changes. The patient had some hyperacute T waves consistent with hyperkalemia. As part of his workup, a CTA of the chest was done on 08/10/[address] scan showed a spiculated left upper lobe pulmonary nodule measuring 1.4 x 1.6 x 2.8 cm in size concerning for primary lung cancer in addition to upper lobe emphysema. 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 I have consulted on this patient few years back in my office. He is known to have COPD with a baseline FEV1 of 37% of predicted and diffusion capacity of 29% of predicted. He has severe COPD as such and the patient has been maintained on a combination of Symbicort and brain and albuterol rescue inhaler on an as-needed basis. 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 He does have an area of round atelectasis left lung base. He has had previous COVID-19 infection most recent of which was in March 2024. He has had previous CAT scan of the chest including 1 in 04/14/2023. At that time, the left upper lobe nodule did not show any lesions and as such the left upper lobe pulmonary nodule has developed over the past 1 year. For now, the patient is hospitalized for chest pain. The patient was seen by cardiology and his pain was thought to be atypical in nature. Echocardiogram was ordered. As for the hyperkalemia, this is being managed by the medical [facility] and the patient is currently on normal citrate of 75 cc an hour. He was also given [facility] Review of Systems Constitutional: Denies chills, Denies fever Eyes: denies as per HPI, denies blurred vision, denies bulging eye, denies decreased vision, denies diplopia, denies discharge, denies dry eye, denies irritation, denies itching, denies pain, denies photophobia, denies loss of peripheral vision, denies loss of vision, denies tunnel vision/blind spots Ears: deny: decreased hearing, ear discharge, earache, tinnitus Ears, nose, mouth and throat: Reports as per HPI Breasts: absent: as per HPI, gynecomastia Cardiovascular: Reports chest pain Respiratory: Reports as per HPI Gastrointestinal: Reports as per HPI Genitourinary: Reports as per HPI Musculoskeletal: Reports as per HPI Musculoskeletal: absent: ankle pain, ankle stiffness, ankle swelling, as per HPI, elbow pain, elbow stiffness, elbow swelling, foot pain, foot stiffness, foot swelling, hand pain, hand stiffness, hand swelling, hip pain, hip stiffness, hip swelling, knee pain, knee stiffness, knee swelling, shoulder pain, shoulder stiffness, shoulder swelling, wrist pain, wrist stiffness, wrist swelling Integumentary: Reports as per HPI Neurological: Reports as per HPI Psychiatric: Reports as per HPI Endocrine: Reports as per HPI Hematologic/Lymphatic: Reports as per HPI Allergic/Immunologic: Reports as per HPI Past Medical History Past Medical History: COPD, Hyperlipidemia, Hypertension Additional Past Medical History / Comment(s): HX C-DIFF (2011), BACK PAIN, AAA 4cm follows w/ Dr. ni, chronic stage III kidney disease, asbestosis with bilateral pleural plaquing History of Any Multi-Drug Resistant Organisms: C-DIFF Date of last positivie culture/infection: 2011/C-Diff MDRO Source:: stool Past Surgical History: Hernia Repair Past Anesthesia/Blood Transfusion Reactions: No Reported Reaction Past Psychological History: No Psychological Hx Reported Smoking Status: Former smoker Past Alcohol Use History: Rare Additional Past Alcohol Use History / Comment(s): smoked 50-60 years ,1/2ppd quit smoking mar 2019 Past Drug Use History: None Reported - Past Family History Sister(s) Family Medical History: Cancer Additional Family Medical History / Comment(s): pancreatic Brother(s) Family Medical History: Cancer Medications and Allergies Home Medications Medication Instructions Recorded Confirmed Type Atorvastatin [Lipitor] 20 mg PO HS tab 04/27/20 08/10/24 Rx Tiotropium 2.5 Mcg/Puff [Spiriva 2 puff INHALATION RT-DAILY 30 Days 04/21/23 08/10/24 Rx Respimat 2.5 Mcg] #1 each atenoloL [Tenormin] 25 mg PO BID 30 Days #60 tab 04/21/23 08/10/24 Rx Albuterol Sulfate [Albuterol 2 puff PO RT-Q4H PRN 08/10/24 08/10/24 History Sulfate Hfa] Cetirizine HCl [Zyrtec] 10 mg PO BID 08/10/24 08/10/24 History Clobetasol Propionate [Temovate 1 applic TOPICAL BID PRN 08/10/24 08/10/24 History 0.05% Cream] amLODIPine [Norvasc] 2.5 mg PO DAILY 08/10/24 08/10/24 History Allergies Allergy/AdvReac Type Severity Reaction Status Date / Time Penicillins Allergy Unknown Verified 08/10/24 15:30 Childhood Physical Exam Vitals: Vital Signs Temp Pulse Pulse Resp BP BP Pulse Ox 08/11/24 14:25 97.5 F L 76 16 132/71 98 08/11/24 13:07 84 08/11/24 12:54 80 08/11/24 09:52 88 08/11/24 09:40 88 08/11/24 07:00 97.6 F 73 16 152/73 100 08/11/24 02:00 97.6 F 74 17 127/70 99 08/11/24 00:22 97.7 F 79 20 152/85 98 08/10/24 23:00 91 168/94 08/10/24 19:31 97.9 F 77 18 129/73 98 08/10/24 17:56 85 15 137/76 92 L Intake and Output 08/11/24 08/11/24 08/11/24 06:59 14:59 22:59 Intake Total 221 Balance 221 Intake: Oral 221 Other: # Voids 1 3 The patient appeared well nourished and normally developed. Vital signs as documented. Head exam is unremarkable. No scleral icterus or corneal arcus noted. Neck is without jugular venous distension, thyromegaly, or carotid bruits. Carotid upstrokes are brisk bilaterally. Lungs are clear to auscultation and percussion. Cardiac exam reveals the PMI to be normally sized and situated. Rhythm is regular. First and second heart sounds normal. No murmurs, rubs or gallops. Abdominal exam reveals normal bowel sounds, no masses, no organomegaly and no aortic enlargement. Extremities are nonedematous and both femoral and pedal pulses are normal. Examination of the skin revealed no evidence of significant rashes, suspicious appearing nevi or other concerning lesions. Neurologically, the patient is awake and alert and the patient does not have any focal neurological deficit. Cranial nerves are essentially intact. Results - Laboratory Findings CBC and BMP: 08/11/24 04:31 08/11/24 04:31 PT/INR, D-dimer PT 10.6 sec (10.0-12.5) 08/10/24 13:28 INR 0.9 (<1.2) 08/10/24 13:28 Abnormal lab findings: Abnormal Labs 08/10/24 08/10/24 08/11/24 13:28 13:28 04:31 RBC 3.82 L Hgb 10.8 L Hct 34.4 L MCHC RDW Lymphocytes # 0.9 L Potassium 5.9 H 6.5 A* Chloride 111 H 110 H Carbon Dioxide 18.1 L BUN 48 H 44.4 H Creatinine 1.95 H 2.0 H Est GFR (CKD-EPI) 31 L BUN/Creatinine Ratio 22.20 H Glucose 128 H Calcium 8.6 L Total Bilirubin <0.2 L Albumin/Globulin Ratio 1.34 L 08/11/24 04:31 RBC 3.53 L Hgb 9.8 L Hct 32.2 L MCHC 30.4 L RDW 15.3 H Lymphocytes # Potassium Chloride Carbon Dioxide BUN Creatinine Est GFR (CKD-EPI) BUN/Creatinine Ratio Glucose Calcium Total Bilirubin Albumin/Globulin Ratio - Diagnostic Findings Chest x-ray: image reviewed CT scan - chest: image reviewed Assessment and Plan Plan: Right upper lobe pulmonary nodule, spiculated, and new finding compared to the e arlier CAT scan of the chest done on 04/14/2023. The patient is a former smoker and has history of asbestosis and there is an increased likelihood of malignancy in the right upper lobe pulmonary nodule which seems to be spiculated measuring 1.6 x 2.8 x 1.4 cm in size. Chest pain, likely atypical, under investigation. Troponins are negative and the patient was seen by cardiology and echocardiogram has been ordered Asbestosis with pleural plaques and an area of rounded atelectasis in the left l ower lobe Low attenuating splenic mass/lesion measuring 2.7 x 2.5 cm in size, indeterminate, metastases need to be considered versus hemangioma Advanced COPD with an FEV1 of 37% of predicted and a diffusion capacity of 29% of predicted, currently inactive and stable Chronic stage III kidney disease Hyperkalemia ministration with chronic kidney disease and the patient is hyperacute T waves on the EKG Previous history of COVID-19 infection Hypertension Hyperlipidemia Abdominal aortic aneurysm, infrarenal, measuring approximately 4 cm based on the most recent ultrasound of the abdomen that was done on 12/01/2021 Chronic normocytic anemia, likely anemia of chronic disease Plan Complete workup for chest pain which is considered to be atypical by cardiology Will obtain an outpatient PET scan regarding the left upper lobe pulmonary nodule and discuss the need for biopsy. Noted the patient is older and has advanced COPD and other comorbidities as mentioned above and the risk-benefit of the biopsy need to be factored in while making this decision. Treat hyperkalemia Monitor potassium level Will continue to follow
--- NOTE | 2024-08-11 17:31 | CA ---
Transthoracic Echo Report Name: Pedro Luis Young Age: 88 Gender: M : 1935 Exam Date: 08/11/2024 14:02 Exam Location: [facility] Ht (in): 69 Wt (lb): 149 Ordering Physician: Maksim Wu MD Attending/Referring Phys: Pre Owned Sales Manager Geneva Pena RDCS Procedure CPT: Indications: CAD Cardiac Hx: Technical Quality: Good Contrast 1: Total Dose (mL): Contrast 2: Total Dose (mL): MEASUREMENTS (Male / Female) Normal Values 2D ECHO LV Diastolic Diameter PLAX 5.0 cm 4.2 - 5.9 / 3.9 - 5.3 cm LV Systolic Diameter PLAX 3.1 cm IVS Diastolic Thickness 0.8 cm 0.6 - 1.0 / 0.6 - 0.9 cm LVPW Diastolic Thickness 0.8 cm 0.6 - 1.0 / 0.6 - 0.9 cm LV Relative Wall Thickness 0.3 LVOT Diameter 2.2 cm LV Diastolic Volume MOD BP 132.9 cm??? 67 - 155 / 56 - 104 cm??? LV Systolic Volume MOD BP 52.9 cm??? 22 - 58 / 19 - 49 cm??? LV Ejection Fraction MOD BP 60.2 % >= 55 % LV Cardiac Index MOD BP 3046.2 cm???/min???m??? LV Diastolic Volume MOD 4C 132.4 cm??? LV Systolic Volume MOD 4C 54.5 cm??? LV Ejection Fraction MOD 4C 58.8 % LV Cardiac Index MOD 4C 2964.1 cm???/min???m??? LV Diastolic Length 4C 9.2 cm LV Systolic Length 4C 7.1 cm LV Diastolic Volume MOD 2C 133.8 cm??? LV Systolic Volume MOD 2C 47.9 cm??? LV Ejection Fraction MOD 2C 64.2 % LV Cardiac Index MOD 2C 3266.1 cm???/min???m??? LV Diastolic Length 2C 9.2 cm LV Systolic Length 2C 6.6 cm LA Volume 43.9 cm??? 18 - 58 / 22 - 52 cm??? LA Volume Index 24.2 cm???/m??? 16 - 28 cm???/m??? DOPPLER AV Peak Velocity 148.6 cm/s AV Peak Gradient 8.8 mmHg AV Mean Velocity 99.8 cm/s AV Mean Gradient 4.5 mmHg AV Velocity Time Integral 29.4 cm LVOT Peak Velocity 109.2 cm/s LVOT Peak Gradient 4.8 mmHg LVOT Velocity Time Integral 22.0 cm LVOT Stroke Volume 86.8 cm??? LVOT Stroke Volume Index 47.6 ml/m??? LVOT Cardiac Index 3302.2 cm???/min???m??? AV Area Cont Eq vti 2.9 cm??? AV Area Cont Eq pk 2.9 cm??? MV Area PHT 3.1 cm??? Mitral E Point Velocity 73.8 cm/s Mitral A Point Velocity 84.4 cm/s Mitral E to A Ratio 0.9 MV Deceleration Time 242.1 ms TR Peak Velocity 229.1 cm/s TR Peak Gradient 21.0 mmHg Right Atrial Pressure 5.0 mmHg Pulmonary Artery Systolic Pressu 26.0 mmHg Right Ventricular Systolic Press 26.0 mmHg PV Peak Velocity 71.8 cm/s PV Peak Gradient 2.1 mmHg FINDINGS Left Ventricle Left ventricular ejection fraction is estimated at 55-60 %. Left ventricular cavity size normal. Left ventricular wall thickness normal. No obvious regional wall motion abnormalities. Right Ventricle Normal right ventricular size and function. Right ventricular systolic pressure within normal limits. Right Atrium Normal right atrial size. Left Atrium Normal left atrial size. Mitral Valve Mitral valve thickened. No evidence for mitral valve prolapse. No mitral stenosis. Trace mitral regurgitation. Aortic Valve Trileaflet aortic valve. Diffuse thickening (sclerosis) of the aortic valve cusps without reduced excursion. No aortic valve stenosis or regurgitation. Tricuspid Valve Structurally normal tricuspid valve. No tricuspid stenosis. Mild tricuspid regurgitation. Pulmonic Valve Structurally normal pulmonic valve. No pulmonic stenosis. Trace pulmonic regurgitation. Pericardium No pericardial effusion. Aorta Normal size aortic root and proximal ascending aorta. CONCLUSIONS LVEF 55 to 60% No obvious regional wall motion abnormality No significant valvular dysfunction Normal RV size and systolic function. RVSP estimated at 26 mmHg Previewed by: Dr Adiel Tay (Electronically Signed) Final Date: 11 August 2024 17:29
[2024-08-11 18:13] LABS: ALT 13 U/L (4-49); AST 22 U/L (17-59); African American GFR (CKD) 39 (>60 ml/min/1.73 sqM); Albumin 3.6 g/dL (3.5-5.0); Albumin/Globulin Ratio 1.3; Alkaline Phosphatase 102 U/L (38-126); Anion Gap 5 mmol/L; Blood Urea Nitrogen 46 mg/dL (9-20); Calcium 8.7 mg/dL (8.4-10.2); Carbon Dioxide 22 mmol/L (22-30); Chloride 111 mmol/L (98-107); Globulin 2.8 g/dL; Glucose 104 mg/dL (74-99); Non-African American GFR(CKD) 34 (>60 ml/min/1.73 sqM); Potassium 5.9 mmol/L (3.5-5.1); Sodium 138 mmol/L (137-145); Total Bilirubin 0.2 mg/dL (0.2-1.3); Total Protein 6.4 g/dL (6.3-8.2)
--- NOTE | 2024-08-11 21:56 | HP ---
HISTORY AND PHYSICAL HISTORY OF PRESENT ILLNESS: An 88-year-old white male came to the hospital with chest pain after shoveling snow radiating down his left arm, is admitted to rule out WI. CT of his chest ordered. He had possible pneumonia on chest x-ray. Started on antibiotics. Cardiology consult pending. HOME MEDICATIONS: Include, 1. Temovate cream. 2. Lipitor 20 at night. 3. Norvasc 2.5 daily. 4. Tenormin 25 b.i.d. 5. Zyrtec 10 daily. 6. Spiriva 2 puffs daily. REVIEW OF SYSTEMS: A 14-point review of systems positive for shortness of breath and chest pain, radiating pain down the left arm. He is with his . SOCIAL HISTORY: Ex-smoker for many years. Social alcohol. PHYSICAL EXAMINATION: VITAL SIGNS: O2 of 100% on 2 L, temp 97.6, pulse 80s, respiratory rate 16 to 18. CARDIOVASCULAR: S1, S2. LUNGS: Scattered wheeze and rhonchi x4. HEMATOLOGY: Negative Homans. PSYCH: Fair mood and affect. NEUROLOGIC: Alert and oriented x3. Atypical chest pain, COPD, pulmonary nodule, rule out WI. Cardiology consult pending. Please see further orders. MMODL / IJN: [id number] /
[2024-08-12 09:18] LABS: Basophils # (A) 0.03 X 10*3/uL (0.00-0.10); Basophils % (A) 0.4 %; Eosinophils # (A) 0.28 X 10*3/uL (0.04-0.35); Eosinophils % (A) 4.2 %; HCT 30.2 % (39.6-50.0); HGB 9.4 g/dL (13.0-17.0); Lymphocytes # (A) 1.03 X 10*3/uL (0.90-5.00); Lymphocytes % (A) 15.4 %; MCH 27.7 pg (27.0-32.0); MCHC 31.1 g/dL (32.0-37.0); MCV 89.1 FL (80.0-97.0); Mean Platelet Volume 9.7 FL (9.5-12.2); Monocytes # (A) 0.55 X 10*3/uL (0.20-1.00); Monocytes % (A) 8.2 %; NRBC Per 100 WBC 0 X 10*3/uL (0.00-0.01); Neutrophils # (A) 4.76 X 10*3/uL (1.80-7.70); Neutrophils % (A) 71.2 %; Platelet Count 256 X 10*3/uL (140-440); RBC 3.39 X 10*6/uL (4.40-5.60); RDW 15.3 % (11.5-14.5); WBC 6.69 X 10*3/uL (4.50-10.00)
[2024-08-12 09:42] LABS: ALT 13 U/L (10-49); AST 20 U/L (14-35); Albumin 3.7 g/dL (3.8-4.9); Albumin/Globulin Ratio 1.32 Ratio (1.60-3.17); Alkaline Phosphatase 112 U/L (41-126); BUN/Creat Ratio 24.12 Ratio (12.00-20.00); Blood Urea Nitrogen 38.6 mg/dL (9.0-27.0); Calcium 8.5 mg/dL (8.7-10.3); Carbon Dioxide 19.6 mmol/L (21.6-31.8); Chloride 111 mmol/L (96-109); Globulin 2.8 g/dL (1.6-3.3); Glucose 96 mg/dL (70-110); Potassium 5.7 mmol/L (3.5-5.5); Sodium 140 mmol/L (135-145); Total Bilirubin <0.2 mg/dL (0.3-1.2); Total Protein 6.5 g/dL (6.2-8.2)
[2024-08-12] MEDS: amLODIPine 2.5 MG TAB PO STA (09:59)
[2024-08-12] MEDS: SODIUM ZIRCONIUM CYCLOSILICATE 10 GM PACKET PO ONE ×2 (10:00→14:23)
[2024-08-12] MEDS: ASPIRIN 81 MG PO SCH (10:02)
--- NOTE | 2024-08-12 11:50 | P.PN ---
Subjective Progress Note Date: 08/12/24 HISTORY OF PRESENTING ILLNESS: Patient is a 88-year-old male with past medical history of dyslipidemia, hy pertension, COPD, He is known to Dr. Deleon. He presents to the hospital because of concerns of left-sided chest pain that was radiating to his neck and arm. Patient took 2 baby aspirin and symptoms r esolved. Patient has not had any recurrent symptoms while in the hospital. He also had mild associated shortness of breath. Admission Cardiac Labs: Troponin x 3 were negative. BUN 48, creatinine 1.9. Potassium 5.9. Repeat potassium 6.5. Admission testing: EKG shows sinus rhythm, hyperacute T waves could be related to hyperkalemia Prior cardiac testing: Lexiscan nuclear outpatient, 2022, no evidence of ischemia, shows moderate size moderate intensity primarily fixed perfusion defect in inferior wall. 08/12/2024 Patient seen and examined. Patient denies having chest pain and is anxious to go home today. He states his breathing is a little difficult. Yesterday he received 1 dose of Lokelma for potassium of 6.5 and repeat last evening was 5.9. Today blood work reveals hemoglobin 9.4, potassium 5.7, CO2 19, BUN 38 creatinine 1.6. Patient has been seen by pulmonary medicine regarding pulmonary nodule and PET scan to be done outpatient. Echocardiogram reveals EF 55 to 60%, RVSP 26 mmHg. PHYSICAL EXAMINATION: Neck: Brisk carotid upstroke, no jugular venous distention. Lungs: Clear to auscultation. Heart: Regular rate and rhythm, S1-S2, , no murmur or rub. Abdomen: Soft nontender, positive bowel sounds. Extremities: No edema, intact distal pulses. Neuro: Alert, oritented, no focal deficits. Detailed neuro exam was not performed. ASSESSMENT: # Atypical chest pain # Hyperkalemia, likely due to CKD # CKD # Essential hypertension # Dyslipidemia # Anemia # Pulmonary nodule PLAN: Ruled out ACS with negative ECG and troponin. 1 dose of Lokelma ordered this morning Patient had a stress test in 2022 which showed fixed inferior wall perfusion defect but no signs of reversible ischemia. Because patient's ongoing symptoms are very atypical, I would not obtain a repeat stress test. We would reevaluate patient symptoms and evaluate if patient needs a stress test on outpatient basis. Patient can be discharged from cardiac standpoint with recommended outpatient follow-up with Dr. Deleon in 2 weeks. Nurse practitioner note has been reviewed, I agree with documented findings and plan of care. Patient was seen and examined. Objective - Vital Signs Vital signs: Vital Signs Temp 97.7 F 08/12/24 07:00 Pulse 102 H 08/12/24 08:24 Resp 16 08/12/24 07:00 BP 183/83 08/12/24 07:00 Pulse Ox 98 08/12/24 08:14 FiO2 Intake & Output 08/11/24 08/12/24 08/12/24 18:59 06:59 18:59 Intake Total 339 Balance 339 Intake: Oral 339 Other: Voiding Method Toilet # Voids 2 3 - Labs CBC & Chem 7: 08/12/24 03:05 08/12/24 03:05 Labs: Abnormal Lab Results - Last 24 Hours (Table) 08/11/24 08/11/24 08/11/24 Range/Units 04:31 04:31 17:39 RBC 3.53 L (4.40-5.60) X 10*6/uL Hgb 9.8 L (13.0-17.0) g/dL Hct 32.2 L (39.6-50.0) % MCHC 30.4 L (32.0-37.0) g/dL RDW 15.3 H (11.5-14.5) % Potassium 6.5 A* 5.9 H (3.5-5.5) mmol/L Chloride 110 H 111 H (96-109) mmol/L Carbon Dioxide 18.1 L (21.6-31.8) mmol/L BUN 44.4 H 46 H (9.0-27.0) mg/dL Creatinine 2.0 H 1.76 H (0.6-1.5) mg/dL Est GFR (CKD-EPI) 31 L (>=60) BUN/Creatinine Ratio 22.20 H (12.00-20.00) Ratio Glucose 104 H (74-99) mg/dL Calcium 8.6 L (8.7-10.3) mg/dL Total Bilirubin <0.2 L (0.3-1.2) mg/dL Albumin/Globulin Ratio 1.34 L (1.60-3.17) Ratio
--- NOTE | 2024-08-12 14:01 | P.NPCON ---
History of Present Illness - Reason for Consult acute renal failure - History of Present Illness Patient is an 88-year-old male with history of COPD, hypertension, chronic kidney disease NKF stage IIIb-IV with baseline creatinine 1.6 to 1.8 mg/dL. Patient is admitted to the hospital with complaints of left-sided chest pain. Troponins were negative. CTA of the chest showed left upper lobe nodule with concern for underlying malignancy. Serum creatinine was 1.9 on admission and it is 1.6 today. Potassium was elevated at 6.5 and it is 5.7 today. Patient admits to increase intake of potassium containing foods. Currently maintained on IV fluids. No history of NSAIDs. Patient has been voiding. No hypotension noted. Patient did report diarrhea prior to admission Past Medical History Past Medical History: COPD, Hyperlipidemia, Hypertension Additional Past Medical History / Comment(s): HX C-DIFF (2011), BACK PAIN, AAA 4cm follows w/ Dr. ni, chronic stage III kidney disease, asbestosis with bilateral pleural plaquing History of Any Multi-Drug Resistant Organisms: C-DIFF Date of last positivie culture/infection: 2011/C-Diff MDRO Source:: stool Past Surgical History: Hernia Repair Past Anesthesia/Blood Transfusion Reactions: No Reported Reaction Past Psychological History: No Psychological Hx Reported Smoking Status: Former smoker Past Alcohol Use History: Rare Additional Past Alcohol Use History / Comment(s): smoked 50-60 years ,1/2ppd quit smoking mar 2019 Past Drug Use History: None Reported - Past Family History Sister(s) Family Medical History: Cancer Additional Family Medical History / Comment(s): pancreatic Brother(s) Family Medical History: Cancer Medications and Allergies Home Medications Medication Instructions Recorded Confirmed Type Atorvastatin [Lipitor] 20 mg PO HS tab 04/27/20 08/10/24 Rx Tiotropium 2.5 Mcg/Puff [Spiriva 2 puff INHALATION RT-DAILY 30 Days 04/21/23 08/10/24 Rx Respimat 2.5 Mcg] #1 each atenoloL [Tenormin] 25 mg PO BID 30 Days #60 tab 04/21/23 08/10/24 Rx Albuterol Sulfate [Albuterol 2 puff PO RT-Q4H PRN 08/10/24 08/10/24 History Sulfate Hfa] Cetirizine HCl [Zyrtec] 10 mg PO BID 08/10/24 08/10/24 History Clobetasol Propionate [Temovate 1 applic TOPICAL BID PRN 08/10/24 08/10/24 History 0.05% Cream] amLODIPine [Norvasc] 2.5 mg PO DAILY 08/10/24 08/10/24 History Allergies Allergy/AdvReac Type Severity Reaction Status Date / Time Penicillins Allergy Unknown Verified 08/10/24 15:30 Childhood Physical Exam Vitals: Vital Signs Temp Pulse Pulse Pulse Pulse Resp BP 08/12/24 13:08 101 H 110 H 08/12/24 11:29 87 08/12/24 11:19 92 08/12/24 08:24 102 H 08/12/24 08:14 08/12/24 08:11 107 H 08/12/24 07:00 97.7 F 98 16 183/83 08/12/24 03:39 88 08/12/24 03:24 89 08/12/24 02:00 97.9 F 100 17 169/92 08/11/24 20:06 84 08/11/24 19:58 81 08/11/24 19:44 97.9 F 81 15 162/84 08/11/24 16:53 88 08/11/24 16:42 88 08/11/24 14:25 97.5 F L 76 16 BP Pulse Ox Pulse Ox Pulse Ox 08/12/24 13:08 91 L 93 L 08/12/24 11:29 08/12/24 11:19 08/12/24 08:24 08/12/24 08:14 98 08/12/24 08:11 08/12/24 07:00 98 08/12/24 03:39 08/12/24 03:24 08/12/24 02:00 95 08/11/24 20:06 08/11/24 19:58 08/11/24 19:44 100 08/11/24 16:53 08/11/24 16:42 08/11/24 14:25 132/71 98 Intake and Output 08/11/24 08/12/24 08/12/24 22:59 06:59 14:59 Intake Total 118 240 Output Total 548 Balance 118 -308 Intake: Oral 118 240 Output: Post Void Residual 548 Other: Voiding Method Toilet # Voids 1 3 Patient is awake, comfortable, no acute distress. Examination of the heart S1 and S2 Examination of the lungs bilateral breath sounds are heard Examination of lower extremities shows no significant edema ANESTHESIOLOGIST AND CRITICAL CARE exam grossly intact Results - Lab Results Most recent lab results Calcium 8.5 mg/dL (8.7-10.3) L 08/12/24 03:05 Magnesium 2.1 mg/dL (1.6-2.3) 08/10/24 13:28 08/12/24 03:05 08/12/24 03:05 Assessment and Plan Assessment: 1. Acute kidney injury, most likely prerenal and improvement IV hydration. Check bladder scan rule out urine retention. Check ultrasound of the kidneys 2. Hyperkalemia associated with acute kidney injury rule out urine retention 3. [place] metabolic acidosis associated with acute kidney injury 4. Chronic kidney disease NKF stage IIIb-IV with baseline creatinine 1.6 to 1.8 mg/dL 5. Left upper lobe spiculated pulmonary nodule 6. Chest pain with negative troponins 7. Advanced COPD Plan: Continue with IV fluids Add oral sodium bicarb Check bladder scan rule out urine retention Low potassium diet. Discussed with patient. Add Tia Thank you for the consultation. We will continue to follow the patient with you during his hospitalization.
--- NOTE | 2024-08-12 18:09 | P.PN ---
Subjective Progress Note Date: 08/12/24 88-year-old male patient presented to the emergency department complaining of chest pain. The pain started on the left side of the chest and went to his neck and left upper extremity. He took aspirin at home and the pain subsided. Subsequently, it recurred and for that reason the patient came into the emergency department. No shortness of breath. No diaphoresis. No nausea or vomiting. No abdominal pain. No fever or chills. Workup included a white cell count of 7.1 with a hemoglobin 10.8 and a platelet count of 272. Normal coagulation profile. He has evidence of chronic kidney disease with a GFR of 34 with a creatinine of 1.9 and a potassium level of 5.9 that came back at 6.5 on morning's lab. Bicarb is at 22, chloride is 111. LFTs are normal. Troponins were negative x 3. LDL cholesterol was at 78. EKG showed normal sinus rhythm without any acute ischemic changes. The patient had some hyperacute T waves consistent with hyperkalemia. As part of his workup, a CTA of the chest was done on 08/10/[address] scan showed a spiculated left upper lobe pulmonary nodule measuring 1.4 x 1.6 x 2.8 cm in size concerning for primary lung cancer in addition to upper lobe emphysema. 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 I have consulted on this patient few years back in my office. He is known to have COPD with a baseline FEV1 of 37% of predicted and diffusion capacity of 29% of predicted. He has severe COPD as such and the patient has been maintained on a combination of Symbicort and brain and albuterol rescue inhaler on an as-needed basis. 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 He does have an area of round atelectasis left lung base. He has had previous COVID-19 infection most recent of which was in March 2024. He has had previous CAT scan of the chest including 1 in 04/14/2023. At that time, the left upper lobe nodule did not show any lesions and as such the left upper lobe pulmonary nodule has developed over the past 1 year. For now, the patient is hospitalized for chest pain. The patient was seen by cardiology and his pain was thought to be atypical in nature. Echocardiogram was ordered. As for the hyperkalemia, this is being managed by the medical group and the patient is currently on normal citrate of 75 cc an hour. He was also given Lokelma On 08/12/2024, the patient is stable. No new complaints. Seen by nephrology. Given oral bicarb. Given IV fluids. Potassium level is down to 5.7. Serum bicarb is at 19. BUN 38 with a creatinine of 1.6. White cell count is 6.6 with a hemoglobin 9.4. Free of any chest pain. Troponins are negative. CAT scan of the chest was noted and discussed earlier in my consultation note. The patient remains on room air oxygen with a pulse ox of 93%. Objective - Vital Signs Vital signs: Vital Signs Temp 97.7 F 08/12/24 07:00 Pulse 87 08/12/24 11:29 Resp 16 08/12/24 07:00 BP 183/83 08/12/24 07:00 Pulse Ox 98 08/12/24 08:14 FiO2 Intake & Output 08/11/24 08/12/24 08/12/24 18:59 06:59 18:59 Intake Total 339 240 Balance 339 240 Intake: Oral 339 240 Other: Voiding Method Toilet # Voids 2 3 - Exam The patient appeared well nourished and normally developed. Vital signs as documented. Head exam is unremarkable. No scleral icterus or corneal arcus noted. Neck is without jugular venous distension, thyromegaly, or carotid bruits. Carotid upstrokes are brisk bilaterally. Lungs are clear to auscultation and percussion. Cardiac exam reveals the PMI to be normally sized and situated. Rhythm is regular. First and second heart sounds normal. No murmurs, rubs or gallops. Abdominal exam reveals normal bowel sounds, no masses, no organomegaly and no aortic enlargement. Extremities are nonedematous and both femoral and pedal pulses are normal. Examination of the skin revealed no evidence of significant rashes, suspicious appearing nevi or other concerning lesions. Neurologically, the patient is awake and alert and the patient does not have any focal neurological deficit. Cranial nerves are essentially intact. - Labs CBC & Chem 7: 08/12/24 03:05 08/12/24 03:05 Labs: Abnormal Lab Results - Last 24 Hours (Table) 08/11/24 08/12/24 08/12/24 Range/Units 17:39 03:05 03:05 RBC 3.39 L (4.40-5.60) X 10*6/uL Hgb 9.4 L (13.0-17.0) g/dL Hct 30.2 L (39.6-50.0) % MCHC 31.1 L (32.0-37.0) g/dL RDW 15.3 H (11.5-14.5) % Potassium 5.9 H 5.7 H (3.5-5.1) mmol/L Chloride 111 H 111 H (98-107) mmol/L Carbon Dioxide 19.6 L (21.6-31.8) mmol/L BUN 46 H 38.6 H (9-20) mg/dL Creatinine 1.76 H 1.6 H (0.66-1.25) mg/dL Est GFR (CKD-EPI) 41 L (>=60) BUN/Creatinine Ratio 24.12 H (12.00-20.00) Ratio Glucose 104 H (74-99) mg/dL Calcium 8.5 L (8.7-10.3) mg/dL Total Bilirubin <0.2 L (0.3-1.2) mg/dL Albumin 3.7 L (3.8-4.9) g/dL Albumin/Globulin Ratio 1.32 L (1.60-3.17) Ratio Assessment and Plan Plan: Right upper lobe pulmonary nodule, spiculated, and new finding compared to the earlier CAT scan of the chest done on 04/14/2023. The patient is a former smoker and has history of asbestosis and there is an increased likelihood of malignancy in the right upper lobe pulmonary nodule which seems to be spiculated measuring 1.6 x 2.8 x 1.4 cm in size. Chest pain, likely atypical, under investigation. Troponins are negative and the patient was seen by cardiology and echocardiogram has been ordered Asbestosis with pleural plaques and an area of rounded atelectasis in the left lower lobe Low attenuating splenic mass/lesion measuring 2.7 x 2.5 cm in size, indeterminate, metastases need to be considered versus hemangioma Advanced COPD with an FEV1 of 37% of predicted and a diffusion capacity of 29% of predicted, currently inactive and stable Chronic stage III kidney disease Hyperkalemia ministration with chronic kidney disease and the patient is hyperacute T waves on the EKG, improving Previous history of COVID-19 infection Hypertension Hyperlipidemia Abdominal aortic aneurysm, infrarenal, measuring approximately 4 cm based on the most recent ultrasound of the abdomen that was done on 12/01/2021 Chronic normocytic anemia, likely anemia of chronic disease Non-anion gap metabolic acidosis Plan Nephrology consultation is appreciated Potassium level is down to 5.7 Continue IV fluids Complete workup for chest pain which is considered to be atypical by cardiology Will obtain an outpatient PET scan regarding the left upper lobe pulmonary nodule and discuss the need for biopsy. Noted the patient is older and has advanced COPD and other comorbidities as mentioned above and the risk-benefit of the biopsy need to be factored in while making this decision. Treat hyperkalemia Monitor potassium level Oral bicarb Will continue to follow
[2024-08-12] MEDS: SODIUM BICARBONATE TAB 650 MG TAB PO SCH (19:54)
--- NOTE | 2024-08-12 21:04 | US ---
EXAMINATION TYPE: US kidneys/renal and bladder DATE OF EXAM: 08/12/2024 COMPARISON: US 2021 CLINICAL INDICATION: Male, 88 years old with history of DANA TECHNIQUE: Grayscale imaging of the bilateral kidneys and urinary bladder: FINDINGS: EXAM MEASUREMENTS: Right Kidney: 9.7 x 5.8 x 4.8 cm Left Kidney: 10.6 x 4.4 x 5.4 cm Bodily Injury Adjuster notes: Exam is limited due to gas and movement from patient's breathing. Right Kidney: *Complex cyst seen at mid: 1.9 x 2.2 x 1.9 cm. This demonstrates some areas of internal septation and nodularity. Benign cyst at the lower pole measuring 1.2 x 1.3 x 1.3 cm. No hydronephrosis. Left Kidney: Multiple cortical cysts, some of these show internal low-level echoes probably artifact or debris. Largest at the upper pole measures 2.0 cm and is indeterminate. Bilobed lobulated midpole lesion probably a septated cyst measuring 2.9 x 1.9 x 1.6 cm. No hydronephrosis. Bladder: Irregular mural based hypoechoic area inferiorly: 3.1 x 4.0 x 2.0 cm. Bilateral Jets seen: Yes IMPRESSION: 1. No hydronephrosis. 2. An indeterminate 2.0 cm left kidney upper pole lesion could represent a debris-filled cyst. 3-6 mo nth follow-up ultrasound to exclude the possibility of a solid mass. 3. Suspect a mildly complex bilobed versus septated cyst measuring 2.9 cm at the left midpole. 4. A complex 2.2 cm cyst at the midpole of the right kidney can be reassessed at the patient's follow -up as well. 5. 4.0 cm urothelial lesion of the posterior inferior bladder wall versus clumped up debris. Correlat e with urinalysis, urine cytology, and direct visualization as indicated. [facility], , 08/12/2024 9:02 PM
[2024-08-12] MEDS: IPRATROPIUM-ALBUTEROL 3 ML NEB INHALATION PRN (23:27)
[2024-08-13 08:37] VITALS: BP 181/85; RESP 16; TEMP 97.7
[2024-08-13] MEDS: carvediloL 12.5 MG TAB PO SCH (09:00)
[2024-08-13] MEDS: amLODIPine 5 MG TAB PO SCH (09:00)
--- NOTE | 2024-08-13 09:21 | P.PN ---
Subjective Progress Note Date: 08/13/24 HISTORY OF PRESENTING ILLNESS: Patient is a 88-year-old male with past medical history of dyslipidemia, hy pertension, COPD, He is known to Dr. Deleon. He presents to the hospital because of concerns of left-sided chest pain that was radiating to his neck and arm. Patient took 2 baby aspirin and symptoms r esolved. Patient has not had any recurrent symptoms while in the hospital. He also had mild associated shortness of breath. Admission Cardiac Labs: Troponin x 3 were negative. BUN 48, creatinine 1.9. Potassium 5.9. Repeat potassium 6.5. Admission testing: EKG shows sinus rhythm, hyperacute T waves could be related to hyperkalemia Prior cardiac testing: Lexiscan nuclear outpatient, 2022, no evidence of ischemia, shows moderate size moderate intensity primarily fixed perfusion defect in inferior wall. 08/12/2024 Patient seen and examined. Patient denies having chest pain and is anxious to go home today. He states his breathing is a little difficult. Yesterday he received 1 dose of Lokelma for potassium of 6.5 and repeat last evening was 5.9. Today blood work reveals hemoglobin 9.4, potassium 5.7, CO2 19, BUN 38 creatinine 1.6. Patient has been seen by pulmonary medicine regarding pulmonary nodule and PET scan to be done outpatient. Echocardiogram reveals EF 55 to 60%, RVSP 26 mmHg. 08/13/2024 Patient seen and examined. Patient's blood pressure remains elevated up to 189/89. Yesterday we increased amlodipine to 5 mg daily. Patient was seen by nephrology yesterday for acute kidney injury. No urinary retention documented. Renal ultrasound showed no hydronephrosis. Multiple kidney lesion/cyst. Patient denies having chest pain, shortness of breath. PHYSICAL EXAMINATION: Neck: Brisk carotid upstroke, no jugular venous distention. Lungs: Clear to auscultation. Heart: Regular rate and rhythm, S1-S2, , no murmur or rub. Abdomen: Soft nontender, positive bowel sounds. Extremities: No edema, intact distal pulses. Neuro: Alert, oritented, no focal deficits. Detailed neuro exam was not performed. ASSESSMENT: # Atypical chest pain # Hyperkalemia, likely due to CKD # CKD # Essential hypertension # Dyslipidemia # Anemia # Pulmonary nodule PLAN: Ruled out ACS with negative ECG and troponin. Discontinue atenolol Start patient on Coreg 12.5 mg twice daily Patient had a stress test in 2022 which showed fixed inferior wall perfusion defect but no signs of reversible ischemia. Because patient's ongoing symptoms are very atypical, I would not obtain a repeat stress test. We would reevaluate patient symptoms and evaluate if patient needs a stress test on outpatient basis. Patient can be discharged from cardiac standpoint with recommended outpatient follow-up with Dr. Billy in 2 weeks. Nurse practitioner note has been reviewed, I agree with documented findings and plan of care. Patient was seen and examined. Objective - Vital Signs Vital signs: Vital Signs Temp 98.2 F 08/13/24 01:54 Pulse 88 08/13/24 03:54 Resp 18 08/13/24 01:54 BP 165/89 08/13/24 01:54 Pulse Ox 96 08/13/24 01:54 FiO2 Intake & Output 08/12/24 08/13/24 08/13/24 18:59 06:59 18:59 Intake Total 358 Output Total 548 Balance -190 Intake: Oral 358 Output: Post Void Residual 548 Other: Voiding Method Toilet Toilet # Voids 2 1 - Labs CBC & Chem 7: 08/12/24 03:05 08/12/24 03:05 Labs: Abnormal Lab Results - Last 24 Hours (Table) 08/12/24 08/12/24 Range/Units 03:05 03:05 RBC 3.39 L (4.40-5.60) X 10*6/uL Hgb 9.4 L (13.0-17.0) g/dL Hct 30.2 L (39.6-50.0) % MCHC 31.1 L (32.0-37.0) g/dL RDW 15.3 H (11.5-14.5) % Potassium 5.7 H (3.5-5.5) mmol/L Chloride 111 H (96-109) mmol/L Carbon Dioxide 19.6 L (21.6-31.8) mmol/L BUN 38.6 H (9.0-27.0) mg/dL Creatinine 1.6 H (0.6-1.5) mg/dL Est GFR (CKD-EPI) 41 L (>=60) BUN/Creatinine Ratio 24.12 H (12.00-20.00) Ratio Calcium 8.5 L (8.7-10.3) mg/dL Total Bilirubin <0.2 L (0.3-1.2) mg/dL Albumin 3.7 L (3.8-4.9) g/dL Albumin/Globulin Ratio 1.32 L (1.60-3.17) Ratio
[2024-08-13 11:09] LABS: African American GFR (CKD) 41 (>60 ml/min/1.73 sqM); Anion Gap 10 mmol/L; Blood Urea Nitrogen 33 mg/dL (9-20); Carbon Dioxide 23 mmol/L (22-30); Chloride 110 mmol/L (98-107); Glucose 68 mg/dL (74-99); Non-African American GFR(CKD) 36 (>60 ml/min/1.73 sqM); Potassium 5.5 mmol/L (3.5-5.1); Sodium 143 mmol/L (137-145)
[2024-08-13 12:27] VITALS: PULSE 83
--- NOTE | 2024-08-13 16:43 | P.PN ---
Subjective Progress Note Date: 08/13/24 88-year-old male patient presented to the emergency department complaining of chest pain. The pain started on the left side of the chest and went to his neck and left upper extremity. He took aspirin at home and the pain subsided. Subsequently, it recurred and for that reason the patient came into the emergency department. No shortness of breath. No diaphoresis. No nausea or vomiting. No abdominal pain. No fever or chills. Workup included a white cell count of 7.1 with a hemoglobin 10.8 and a platelet count of 272. Normal coagulation profile. He has evidence of chronic kidney disease with a GFR of 34 with a creatinine of 1.9 and a potassium level of 5.9 that came back at 6.5 on morning's lab. Bicarb is at 22, chloride is 111. LFTs are normal. Troponins were negative x 3. LDL cholesterol was at 78. EKG showed normal sinus rhythm without any acute ischemic changes. The patient had some hyperacute T waves consistent with hyperkalemia. As part of his workup, a CTA of the chest was done on 08/10/[address] scan showed a spiculated left upper lobe pulmonary nodule measuring 1.4 x 1.6 x 2.8 cm in size concerning for primary lung cancer in addition to upper lobe emphysema. 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 I have consulted on this patient few years back in my office. He is known to have COPD with a baseline FEV1 of 37% of predicted and diffusion capacity of 29% of predicted. He has severe COPD as such and the patient has been maintained on a combination of Symbicort and brain and albuterol rescue inhaler on an as-needed basis. 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 He does have an area of round atelectasis left lung base. He has had previous COVID-19 infection most recent of which was in March 2024. He has had previous CAT scan of the chest including 1 in 04/14/2023. At that time, the left upper lobe nodule did not show any lesions and as such the left upper lobe pulmonary nodule has developed over the past 1 year. For now, the patient is hospitalized for chest pain. The patient was seen by cardiology and his pain was thought to be atypical in nature. Echocardiogram was ordered. As for the hyperkalemia, this is being managed by the medical group and the patient is currently on normal citrate of 75 cc an hour. He was also given Lokelma On 08/12/2024, the patient is stable. No new complaints. Seen by nephrology. Given oral bicarb. Given IV fluids. Potassium level is down to 5.7. Serum bicarb is at 19. BUN 38 with a creatinine of 1.6. White cell count is 6.6 with a hemoglobin 9.4. Free of any chest pain. Troponins are negative. CAT scan of the chest was noted and discussed earlier in my consultation note. The patient remains on room air oxygen with a pulse ox of 93%. 08/13/2024, the patient respiratory status is stable. Awaiting clearance from nephrology. Possible home today if clearance from nephrology is given. Creatinine is at 1.6 which is stable. Potassium levels are down to 5.5. No respiratory distress for now. [place] [employer] on the case. The patient is currently on oral bicarb. Objective - Vital Signs Vital signs: Vital Signs Temp 97.7 F 08/13/24 07:15 Pulse 83 08/13/24 12:27 Resp 16 08/13/24 07:15 BP 181/85 08/13/24 07:15 Pulse Ox 94 L 08/13/24 09:40 FiO2 Intake & Output 08/12/24 08/13/24 08/13/24 18:59 06:59 18:59 Intake Total 358 118 Output Total 548 501 Balance -190 -383 Intake: Oral 358 118 Output: Post Void Residual 548 501 Other: Voiding Method Toilet Toilet Toilet # Voids 2 1 - Exam The patient appeared well nourished and normally developed. Vital signs as documented. Head exam is unremarkable. No scleral icterus or corneal arcus noted. Neck is without jugular venous distension, thyromegaly, or carotid bruits. Carotid upstrokes are brisk bilaterally. Lungs are clear to auscultation and percussion. Cardiac exam reveals the PMI to be normally sized and situated. Rhythm is regular. First and second heart sounds normal. No murmurs, rubs or gallops. Abdominal exam reveals normal bowel sounds, no masses, no organomegaly and no aortic enlargement. Extremities are nonedematous and both femoral and pedal pulses are normal. Examination of the skin revealed no evidence of significant rashes, suspicious appearing nevi or other concerning lesions. Neurologically, the patient is awake and alert and the patient does not have any focal neurological deficit. Cranial nerves are essentially intact. - Labs CBC & Chem 7: 08/12/24 03:05 08/13/24 10:35 Labs: Abnormal Lab Results - Last 24 Hours (Table) 08/13/24 Range/Units 10:35 Potassium 5.5 H (3.5-5.1) mmol/L Chloride 110 H (98-107) mmol/L BUN 33 H (9-20) mg/dL Creatinine 1.67 H (0.66-1.25) mg/dL Glucose 68 L (74-99) mg/dL Assessment and Plan Plan: Right upper lobe pulmonary nodule, spiculated, and new finding compared to the earlier CAT scan of the chest done on 04/14/2023. The patient is a former smoker and has history of asbestosis and there is an increased likelihood of malignancy in the right upper lobe pulmonary nodule which seems to be spiculated measuring 1.6 x 2.8 x 1.4 cm in size. Chest pain, likely atypical, under investigation. Troponins are negative and the patient was seen by cardiology and echocardiogram has been ordered Asbestosis with pleural plaques and an area of rounded atelectasis in the left lower lobe Low attenuating splenic mass/lesion measuring 2.7 x 2.5 cm in size, indet erminate, metastases need to be considered versus hemangioma Advanced COPD with an FEV1 of 37% of predicted and a diffusion capacity of 29% of predicted, currently inactive and stable Chronic stage III kidney disease Hyperkalemia ministration with chronic kidney disease and the patient is hyperac [place] T waves on the EKG, improving Previous history of COVID-19 infection Hypertension Hyperlipidemia Abdominal aortic aneurysm, infrarenal, measuring approximately 4 cm based on the most recent ultrasound of the abdomen that was done on 12/01/2021 Chronic normocytic anemia, likely anemia of chronic disease Non-anion gap metabolic acidosis Plan Nephrology consultation is appreciated Potassium level is down to 5.5 Continue IV fluids, creatinine is stable Complete workup for chest pain which is considered to be atypical by cardiology Will obtain an outpatient PET scan regarding the left upper lobe pulmonary nodule and discuss the need for biopsy. Noted the patient is older and has advanced COPD and other comorbidities as mentioned above and the risk-benefit of the biopsy need to be factored in while making this decision. Treat hyperkalemia Monitor potassium level Oral bicarb Possible home today to be followed up on outpatient basis by pulmonary regarding the right upper lobe pulmonary nodule.
[2024-08-13] MEDS ORDERED: TAMSULOSIN 0.4 MG CAP.ER.24H PO SCH (18:30)
--- NOTE | 2024-08-13 21:14 | P.PN ---
Subjective Patient seen for follow-up for acute kidney injury. No significant complaints today. Patient wants to go home Bladder scan showed 540 mL of urine. No labs from today. Objective - Vital Signs Vital signs: Vital Signs Temp 97.7 F 08/13/24 07:15 Pulse 83 08/13/24 12:27 Resp 16 08/13/24 07:15 BP 181/85 08/13/24 07:15 Pulse Ox 94 L 08/13/24 09:40 FiO2 Intake & Output 08/13/24 08/13/24 08/14/24 06:59 18:59 06:59 Intake Total 118 Output Total 501 Balance -383 Intake: Oral 118 Output: Post Void Residual 501 Other: Voiding Method Toilet Toilet # Voids 1 - Exam Patient is awake, comfortable, no acute distress. 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 Acute kidney injury, most likely prerenal and improvement IV hydration. Patient has underlying urine retention. Ultrasound showed complexity in the bladder possible debris. Patient also has a complex cyst on the right kidney 2. Hyperkalemia associated with acute kidney injury rule out urine retention 3. [place] metabolic acidosis associated with acute kidney injury 4. Chronic kidney disease NKF stage IIIb-IV with baseline creatinine 1.6 to 1.8 mg/dL 5. Left upper lobe spiculated pulmonary nodule 6. Chest pain with negative troponins 7. Advanced COPD Plan: Check labs today Add Flomax Patient will need follow-up with urology and perhaps nephrology as well.
== END 2024-08-13 16:14 | disposition home or self-care (01) ==
LOC: EC 13:05 → 6NMEDSUR 16:36
PROVIDERS: ADMIT Family Medicine; ATTEND Family Medicine
DX: R07.9 Chest pain, unspecified (principal); E78.00 Pure hypercholesterolemia, unspecified; J44.9 Chronic obstructive pulmonary disease, unspecified; E87.5 Hyperkalemia; N17.9 Acute kidney failure, unspecified; I12.9 Hypertensive chronic kidney disease with stage 1 through stage 4 chronic kidney disease, or unspecified chronic kidney disease; N18.30 Chronic kidney disease, stage 3 unspecified; D63.1 Anemia in chronic kidney disease; R91.1 Solitary pulmonary nodule; I71.40 Abdominal aortic aneurysm, without rupture, unspecified; J92.0 Pleural plaque with presence of asbestos; J98.11 Atelectasis; D73.89 Other diseases of spleen; E87.20 Acidosis, unspecified; N28.1 Cyst of kidney, acquired; Z86.16 Personal history of COVID-19; Z87.891 Personal history of nicotine dependence; Z79.899 Other long term (current) drug therapy; Z88.0 Allergy status to penicillin
CPT/HCPCS: 96376; 96365; 96366 ×3; 96367; 99285; 36415; 94640 ×6; 94760 ×2; 93005; 93306; 80061; 80053 ×3; 80048; 83735; 84484; 85025 ×3; 85610; 85730; 71046; 76770; 71250; G0378 ×4; J0456 ×2; J0696 ×2